=== PATIENT | female | born 1975 | race African-American/Black ===

== ENCOUNTER 2017-07-24 18:50 | Emergency (ER) | payer OTHER, SELFPAY ==
[2017-07-24 18:52] VITALS: BP 134/67; PULSE 85; RESP 16; TEMP 36.9; O2SAT 97; BMI 29.1
--- NOTE | 2017-07-24 19:58 | ED.VISSUMM ---
- ER Visit Summary Date of Service: 07/24/17 Chief Complaint: [] Fall 10 feet off ladder History of Present Illness: The patient is a 41 F [] complaining of a mechanical fall 2010 feet off a ladder onto her abdomen. She reports mild left sided abdominal discomfort. Denies nausea or vomiting. She rates the pain as 5 out of 10. She denies any hematuria. Denies chest pain or shortness of breath. Denies hitting her head or neck. She is conversational during history and physical exam. She reports the ladder slipped out from underneath her when she was on the second high step of the ladder falling directly onto concrete onto her abdomen. Physical Examination: [] Afebrile, vital signs stable. 41-year-old female no acute distress. Head is normocephalic, atraumatic. There is no midline C-spine tenderness. Cardiovascular exam is regular rate and rhythm. Lungs are clear to auscultation. Abdomen is soft with mild left lower quadrant tenderness. There is also mild left upper quadrant tenderness. There is no left CVA tenderness or right CVA tenderness. There is bruising to the right posterior aspect of the upper extremity and bruising to the right lower extremity. Test Results: [] Urinalysis: Microscopic blood. BMP normal. CT abdomen/pelvis with IV contrast: Negative. Emergency Department Course and Treatment: [] Patient had a fall from approximately 10 feet off a ladder. Initial management was obtaining a urinalysis see if there is any blood before further testing was obtained as the patient had a benign abdominal examination. As there was blood and further discomfort on serial exam I did obtain a basic metabolic panel and a CT of the abdomen/pelvis with IV contrast which revealed no significant intra-abdominal injuries. Incidental finding of breast fibroadenoma with suggestion of mammogram by radiology. This information was relayed to the patient (to obtain a mammogram). Treatment Plan: [] Follow-up with PCP. Disposition: [] Discharge, stable. Impression: [] Mechanical fall with abdominal pain This note was generated with [employer] dictation software. It may contain incorrect words, spelling, and punctuation that were not noted in review of the chart prior to signing ED Disposition - Plan for ED Patient: Chief Complaint: Fall Referrals: Care Physician,No Primary [Primary Care Provider] -
[2017-07-24 20:11] LABS: Mucous, Urine 0 SEEN /hpf (<or=2+)
[2017-07-24 20:12] LABS: Color, Urine Yellow (Yellow); Glucose, Dipstick Normal (Normal); Ketone-Dipstick Negative (Negative); Leukocyte Esterase-Dipstick Negative /ul (Negative); Nitrite-Dipstick Negative (Negative); Occult Blood-Urine 50 /ul (Negative); Protein-Dipstick Negative (Negative); Specific Gravity, Urine 1.015 (1.002-1.030); Urine Bilirubin Dipstick Negative (Negative); Urine Clarity Sl. Cloudy (Clear); Urine Urobilinogen Normal (Normal)
[2017-07-24 20:20] LABS: Squamous Epithelial Cells - UA 0-5 SEEN /hpf (5-10)
[2017-07-24 20:21] LABS: White Blood Cells 0-5 SEEN /hpf (0-5)
[2017-07-24 20:22] LABS: Bacteria 1+ /hpf (None Seen); Red Blood Cells-Urine 5-10 SEEN /hpf (0-5)
--- NOTE | 2017-07-24 21:21 | CT_ITS ---
STUDY: CT ABDOMEN AND PELVIS WITH CONTRAST REASON FOR EXAM: Female, 41 years old. Injury and pain RADIATION DOSAGE (If Supplied By Facility): CTDIvol = ( 13.75 ) mGy, DLP = ( 889.20 ) mGycm TECHNIQUE: Transaxial images were obtained from the lower chest to the upper thighs without oral contrast. 100 ml of Isovue 370 contrast was administered. Sagittal and coronal images were reconstructed. Individualized dose optimization techniques were used for this CT. COMPARISON: July 23, 2016 FINDINGS: The visualized lung bases are unremarkable. There is no pleural effusion. The heart is normal in size. There is a partially visualized 2 cm mass in the left breast. The liver is unremarkable. There is non-visualization of the gallbladder, which may be secondary to either contraction or a prior cholecystectomy. The spleen is unremarkable. The pancreas is unremarkable. The adrenal glands are unremarkable. The right kidney is unremarkable. There is no dilatation of the collecting system in the right kidney. The left kidney is unremarkable. There is no dilatation of the collecting system in the left kidney. The stomach is unremarkable. The small bowel is unremarkable. The colon is unremarkable. The appendix is visualized and appears normal. The aorta and branch vessels are unremarkable. The inferior vena cava is unremarkable. The retroperitoneum is unremarkable. There is no free fluid in the abdomen. The urinary bladder is unremarkable. There is absence of the uterus likely from prior hysterectomy. There are follicles in both ovaries. The soft tissues of the abdominal wall are unremarkable. The visualized bones are unremarkable. CT/Abdomen/Pelvis W IV Cont ONLY IMPRESSION: No acute abnormalities are seen in the abdomen or pelvis. There is no ascites. No acute abnormalities are seen in the major organs. No acute fractures are seen. Incidentally noted is an incompletely visualized mass in the left breast, possible fibroadenoma. If the patient has not had a recent mammogram, then a bilateral diagnostic mammogram and left breast ultrasound are recommended. Electronically Signed: Maranda Mott MD at 22:56 EDT Tel Direct: [phone], Service support ,
[2017-07-24 21:53] LABS: Anion Gap 6 (5-15); BUN 14 mg/dL (7-18); BUN/Creat Ratio 16.1 RATIO (10-20); Calcium,Total 8.7 mg/dL (8.5-10.1); Chloride 105 mmol/L (98-107); Creatinine, Serum 0.87 mg/dL (0.55-1.02); EST Glomerular Filtration Rate 75 mL/min (>60); Est Glom Filt Rate - Afr Amer 91 mL/min (>60); Estimated Creatinine Clearance 75.03 ml/min; Glucose 124 mg/dL (74-106); Potassium 3.3 mmol/L (3.5-5.1); Sodium Level 138 mmol/L (136-145)
[2017-07-24 22:18] VITALS: BP 120/80; PULSE 64; RESP 18; O2SAT 97
--- NOTE | 2017-07-24 23:05 | ED.DEP ---
ED Disposition - Plan for ED Patient: Disposition: Home or Assisted Living Chief Complaint: Fall Instructions: ED Mechanical Fall, Blunt Abdominal Trauma Referrals: Care Physician,No Primary [Primary Care Provider] -
[2017-07-24 23:20] VITALS: BP 117/78; PULSE 64; RESP 16; O2SAT 99
== END 2017-07-24 23:21 | disposition home or self-care (01) ==
PROVIDERS: Emergency Provider Emergency Medicine
DX: S30.1XXA Contusion of abdominal wall, initial encounter (principal); S40.021A Contusion of right upper arm, initial encounter; S80.11XA Contusion of right lower leg, initial encounter; W11.XXXA Fall on and from ladder, initial encounter; Y93.9 Activity, unspecified; Y92.9 Unspecified place or not applicable; Y99.9 Unspecified external cause status; D24.2 Benign neoplasm of left breast; Z90.710 Acquired absence of both cervix and uterus
CPT/HCPCS: 74177; 80048; 81001; 99283; Q9967; A4216

== ENCOUNTER → 2017-09-22 08:57 | Outpatient (CLI) | payer BC, SELFPAY ==
--- NOTE | 2017-09-22 08:59 | BI_ITS ---
MAMMOGRAPHY - BILATERAL DIAGNOSTIC REASON FOR EXAM: Female, 42 years old. Left breast lump. Known fibroadenoma of the left breast. PERTINENT HISTORY: Prior left excisional breast biopsy and stereotactic breast biopsy. TECHNIQUE: Digital bilateral breast maciel (3D mammographic acquisition) in the CC and MLO projections. 2-D mediolateral oblique (MLO) and craniocaudad (CC) views of both breasts were obtained. CAD: Full Field Digital Mammography with Computer Added Detection was performed. COMPARISON: Comparison is made with prior examination dated May 13, 2011. FINDINGS: Breast Composition: The breasts are heterogeneously dense, which may obscure small masses. There is a 2.4 cm x 2.5 cm well-defined nodule in the inferior retroareolar region of the left breast. This corresponds to the palpable abnormality. A tissue clip marker is seen within it. According to the patient's history, this was found to be a fibroadenoma. Surgical clips are seen in the left axillary region and are unchanged. No other significant abnormalities are identified. There has been no significant change since the prior study. BI/DIAG MAMM W/CAD, BILAT IMPRESSION: Stable bilateral diagnostic mammogram. Ultrasound of the left breast of the palpable abnormality is recommended for further evaluation. ASSESSMENT CATEGORY: BIRADS Category 0: Incomplete. Need additional imaging evaluation. A letter regarding these results will be sent to the patient by the facility within 30 days. Approximately 10% of breast cancers are not detected by mammography. A normal mammogram should not delay biopsy of a clinically suspicious abnormality. Electronically Signed: Fito Daniels MD at 10:49 EDT Tel [phone], Service support ,
--- NOTE | 2017-09-22 08:59 | US_ITS ---
STUDY: ULTRASOUND BREAST - LEFT REASON FOR EXAM: Female, 42 years old. Palpable lump left breast. Patient has a known fibroadenoma from prior biopsies. TECHNIQUE: Axial and longitudinal images of the LEFT breast were performed with a high resolution ultrasound transducer. COMPARISON: Comparison is made with prior outside mammogram dated May 13, 2011 and prior mammogram done earlier in day. FINDINGS: LEFT Breast: There is a 2.6 cm x 2.2 cm x 1.2 cm well-defined hypoechoic nodule at the 5:00 position of the breast at 2 cm from the nipple. This corresponds to the mammographic findings. A clip from prior biopsy is seen within it. US/Breast Limited Unilateral IMPRESSION: The palpable abnormality corresponds to a 2.6 on the right 2.2 cm x 1.2 cm well-defined hypoechoic nodule. A clip is seen within the from prior biopsy. This was found to be a fibroadenoma. No other abnormality is seen. ASSESSMENT CATEGORY: BIRADS Category 2: Benign. A letter regarding these results will be sent to the patient by the facility within 30 days. Electronically Signed: Fito Daniels MD at 10:47 EDT Tel [phone], Service support ,
[2019-10-04 08:30] VITALS: BMI 29.6
== END ==
PROVIDERS: Visit Provider Surgery
DX: N63.20 Unspecified lump in the left breast, unspecified quadrant (principal)
CPT/HCPCS: 76642; 77062; 77063; 77066; G0279

== ENCOUNTER → 2018-03-15 15:48 | Outpatient (CLI) | payer BC, SELFPAY ==
[2018-03-15 14:15] VITALS: BMI 29.6
--- NOTE | 2018-03-15 15:52 | RAD_ITS ---
STUDY: X-RAY - CERVICAL SPINE REASON FOR EXAM: Female, 42 years old. 4 month history of facial numbness. TECHNIQUE: 3 view(s) of the cervical spine were obtained. COMPARISON: None FINDINGS: Normal anterior atlantoaxial articulation. Normal odontoid process. There is straightening of the normal cervical lordosis. Anterior spondylosis and disc space narrowing at the C5-C6 and C6-C7 levels. Normal visualized intervertebral neuroforamina. The soft tissue structures are unremarkable. RAD/Cerv Spine 2 or 3 Views IMPRESSION: Straightening of the normal cervical lordosis. Anterior spondylosis and disc space narrowing at the C5-C6 and C6-C7 levels. Electronically Signed: Fito Daniels MD at 15:12 EST Tel [phone], Service support ,
== END ==
LOC: MTRAD 15:50
PROVIDERS: Referring Provider Nurse Practitioner Family; Visit Provider Nurse Practitioner Family
DX: R20.0 Anesthesia of skin (principal)
CPT/HCPCS: 72040

== ENCOUNTER → 2018-03-24 12:26 | Outpatient (CLI) | payer BC, SELFPAY ==
[2018-03-15 14:15] VITALS: BMI 29.6
--- NOTE | 2018-03-24 12:31 | MRI_ITS ---
STUDY: MRI CERVICAL SPINE WITHOUT CONTRAST REASON FOR EXAM: Female, 42 years old. Cervical radiculopathy, facial numbness RTgt;L bilateral arm and hand numbness x 4 mons TECHNIQUE: Standardized fat and water weighted pulse sequences were obtained in the sagittal and axial planes. COMPARISON: None FINDINGS: Normal foramen magnum and brainstem-cervical cord junction. Normal craniovertebral junction. Normal anterior atlantoaxial articulation. Normal odontoid process. Normal cervical lordosis. Normal vertebral bodies and posterior osseous elements. C2-3: Normal endplates. Normal disc height, signal and morphology. Normal central canal and intervertebral neural foramina. C3-4: Endplate spondylosis. Central and paracentral disc bulge. Degenerative changes of the bilateral facet joints and uncovertebral joints. Moderate narrowing of the central canal and the bilateral intervertebral neural foramina. C4-5: Endplate spondylosis. Central and paracentral disc bulge. Degenerative changes of the bilateral facet joints and uncovertebral joints. Moderate narrowing of the central canal and the bilateral intervertebral neural foramina. C5-6: Endplate spondylosis. Central and paracentral disc bulge. Degenerative changes of the bilateral facet joints and uncovertebral joints. Moderate narrowing of the central canal and the bilateral intervertebral neural foramina. C6-7: Endplate spondylosis. Central and paracentral disc bulge. Degenerative changes of the bilateral facet joints and uncovertebral joints. Moderate narrowing of the central canal and the bilateral intervertebral neural foramina. C7-T1: Normal endplates. Normal disc height, signal and morphology. Normal central canal and intervertebral neural foramina. Normal cervical cord. Normal visualized soft tissue structures. MRI/Spine Cervical (Routine) IMPRESSION: Multilevel degenerative changes, as described above. Electronically Signed: eRnee Enriquez MD at 18:47 EST Tel , Service support ,
--- OUTSIDE RECORDS SUMMARY | 2018-05-29 02:03 | XMS RPT_ITS ---
:1975 Author Organization OHIP Support Name Relationship Address Phone SHERICE SEYMOUR Unavailable Unavailable + [place] [address] [place] Unavailable [address] + [address] [place] [address] SHANTELL SEYMOURE Unavailable Unavailable + [place] Unavailable [address] + [address] [place] [address] Lion Sherice Unavailable [address] [facility] + [place] [address] [place] Unavailable [address] + [address] [place] [address] Lion Sherice Unavailable Unavailable + GRAVES, TINY Unavailable Unavailable + [place] Unavailable [address] + [address] [place] [address] Lion Sherice Unavailable Unavailable + GRAVES, TINY Unavailable Unavailable + [place] Unavailable [address] + [address] [place] [address] Lion Sherice Unavailable . + [place] [address] GRAVES, TINY Unavailable . + [place] [address] [place] Unavailable [address] + [address] [place] [address] Lion, Sherice Unavailable Unavailable + GRAVES, TINY Unavailable Unavailable + UL[place] Unavailable [address] + [address] [place] [address] ROBERT POND Unavailable [address] + [place] [address] [place] Unavailable [address] + [address] [place] [address] Care Team Providers Name Role Phone CANDIDA MILLER Attending Unavailable CHACHA SEYMOUR Referring Unavailable Elder, Brad METAL FABRICATOR WELDER-C Attending Unavailable Nicolas Colon Referring Unavailable Elder, Brad METAL FABRICATOR WELDER-C Attending Unavailable Elder, Brad METAL FABRICATOR WELDER-C Referring Unavailable Primay Care Physicia, No Primary Care Unavailable Elder, Brad METAL FABRICATOR WELDER-C Attending Unavailable Elder, Brad METAL FABRICATOR WELDER-C Referring Unavailable Primay Care Physicia, No Primary Care Unavailable MarcanthonyDoris Attending Unavailable Primay Care Physicia, No Referring Unavailable Primay Care Physicia, No Primary Care Unavailable Librado Varneri Attending Unavailable Abimbola, Ortiz Attending Unavailable Marcanthony, Doris Referring Unavailable Primay Care Physicia, No Primary Care Unavailable [place]plin, Ortiz Attending Unavailable Primay Care Physicia, No Primary Care Unavailable Abimbola, Ortiz Attending Unavailable Primay Care Physicia, No Referring Unavailable PROBLEMS PROBLEMS DATE TYPE CONDITION / CODE ATTENDING STATUS SOURCE 03/15/2018 Unknown R20.0 - Brad Elder Active [place] Anesthesia of METAL FABRICATOR WELDER-C [facility] skin / Hospital R20.0(ICD-10) Repository 09/22/2017 Unknown N63.20 - [place], Ortiz Active [place] Unspecified lump Community in the left Hospital breast, Repository unspecified quadrant / N63.20(ICD-10) 11/05/2017 Unknown Z04.3 - Encounter Christal Varner Active [place] for examination Community and observation Hospital following other Repository accident / Z04.3(ICD-10) PROCEDURES PROCEDURES No Procedure Records FoundRESULTS RESULTS SPINE CERVICAL Observed: 03/24/2018 Status: F Source: [place] (ROUTINE) 12:31 PM [facility] REPOSITORY [facility] Imaging Services [address] [place] [address] Spine Cervical (Routine) MR#: [id number] Acct: [id number] Name: RUTHIE CORADO Rep #: [id number] : 1975 F 42 From: Renee Enriquez MD PCP: Care Physician, No Primary Status: REG CLI Study: Spine Cervical (Routine) Date of Exam: 03/24/18 Exam# [id number] Ordering Dr: Brad Elder METAL FABRICATOR WELDER-C STUDY: MRI CERVICAL SPINE WITHOUT CONTRAST REASON FOR EXAM: Female, 42 years old. Cervical radiculopathy, facial numbness RTgt;L bilateral arm and hand numbness x 4 mons TECHNIQUE: Standardized fat and water weighted pulse sequences were obtained in the sagittal and axial planes. COMPARISON: None FINDINGS: Normal foramen magnum and brainstem-cervical cord junction. Normal craniovertebral junction. Normal anterior atlantoaxial articulation. Normal odontoid process. Normal cervical lordosis. Normal vertebral bodies and posterior osseous elements. C2-3: Normal endplates. Normal disc height, signal and morphology. Normal central canal and intervertebral neural foramina. C3-4: Endplate spondylosis. Central and paracentral disc bulge. Degenerative changes of the bilateral facet joints and uncovertebral joints. Moderate narrowing of the central canal and the bilateral intervertebral neural foramina. C4-5: Endplate spondylosis. Central and paracentral disc bulge. Degenerative changes of the bilateral facet joints and uncovertebral joints. Moderate narrowing of the central canal and the bilateral intervertebral neural foramina. C5-6: Endplate spondylosis. Central and paracentral disc bulge. Degenerative changes of the bilateral facet joints and uncovertebral joints. Moderate narrowing of the central canal and the bilateral intervertebral neural foramina. C6-7: Endplate spondylosis. Central and paracentral disc bulge. Degenerative changes of the bilateral facet joints and uncovertebral joints. Moderate narrowing of the central canal and the bilateral intervertebral neural foramina. C7-T1: Normal endplates. Normal disc height, signal and morphology. Normal central canal and intervertebral neural foramina. Normal cervical cord. Normal visualized soft tissue structures. MRI/Spine Cervical (Routine) IMPRESSION: Multilevel degenerative changes, as described above. Electronically Signed: Renee Enriquez MD at 18:47 EST Tel , Service support , CC: No Primary Care Physician; Brad Elder NP Tie Maker: Signed INTERNAL MEDICINE Observed: 03/17/2018 Status: F Source: [place] OFFICE VISIT 8:[address] 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 arrive at 1:30 for paper Chief Complaint: numbness in her face Is patient in pain?: No Allergies Penicillins [PCN] Allergy (Verified 07/24/17 18:51) Hives Medications NK 09/15/17 [History Confirmed 09/15/17] Is last menstrual period known: Yes PFSH Medical History History of anemia (Acute) No significant medical problems (Acute) Surgical History S/P bunionectomy (Acute) S/P cholecystectomy (Acute) S/P hysterectomy (Acute 2017) S/P lumpectomy of breast (Acute) S/P tonsillectomy (Acute) Family History Sister CVA (cerebral vascular accident) Thyroid disorder Depression Mother Thyroid disorder Social History Smoking Status: Never smoker alcohol intake: current alcohol intake frequency: holidays/special occasions only substance use type: does not use what type of physical activity do you participate in: none HPI HPI Chief Complaint: numbness in her face Details: RUTHIE CORADO, is a 42 F who presents to the office today for an acute visit of numbness and tingling in her face times 3 months. She denies any significant past medical history. The patient states that she has had numbness on and off to both the right and left side of her face for the past 3 months which occurs daily and that she has occasional numbness and tingling to her bilateral upper extremities that starts at the elbow and goes to the fingertips that occurs once or twice per week. She denies any pain with this numbness. She currently is having a numbness on the right side of her face. She denies any obvious injury or prior history of injury to the area. The only thing she can think of is that approximately 1 year ago she fell off a ladder, however did not injure that area at the time. She denies any other acute concerns at this time. She denies any other aggravating or alleviating factors. The patient otherwise denies any fever, chills, nausea, vomiting, shortness of breath, chest pain or pressure, palpitations, orthopnea, lower extremity edema, syncope or presyncopal episodes. ROS Const Constitutional: Positive for fatigue; no weight change, body ache, chills, sleep problems, fever(s), change in appetite, snoring, weakness, frequent falls, headache(s) or excessive sweating Eyes Eyes: Positive for dry eyes (right eye gets blood shot sometimes and itches); no change in vision, eye pain, light sensitivity or blurry vision ENT ENT: No headache(s), abnormal hearing, ear pain, tinnitus, nasal congestion, sore throat or neck pain Resp Respiratory: No snoring, cough, shortness of breath or wheezing Cardio Cardiology: Positive for palpitations (not new all previous test were negative); no excessive sweating, chest pain at rest, chest pain with exertion, shortness of breath, dyspnea on exertion, orthopnea or lightheadedness Gastro GI: No abdominal pain, change in bowel habits, constipation, diarrhea, vomiting, nausea/dyspepsia or cramping Genitourinary-Female: No burning urination, painful urination, urinary incontinence, urinary frequency, abnormal vaginal bleeding, pelvic pain or other Musc Musculoskeletal: Positive for numbness and tingling (costant in face, sometimes in hands); no neck pain, abnormal walking, joint pain, back pain, limited range of motion or muscle weakness Skin Skin: No redness, dry skin, itching, lesions, wounds or rash Neuro Neurology: Positive for numbness and tingling (costant in face, sometimes in hands); no weakness, frequent falls, headache(s), abnormal hearing, abnormal walking, abnormal speech, dizziness or memory loss Psych Psychiatric: No change in appetite, No memory loss, No anxiety, No depression, No Thoughts of harming yourself/Others Endo Endocrine: Positive for fatigue; no excessive sweating, cold intolerance, increased thirst/drinking, heat intolerance, flushing or increased hunger Aller/Imm Allergy/Immunologic: No wheezing, itchy eyes, hives or seasonal allergy symptoms [place]/Lymp Hematologic/Lymphatic: No easy bleeding, easy bruising or enlarged lymph nodes Exam Const General: cooperative, comfortable, no acute distress Nutritional Appearance: average body habitus, well nourished Orientation: alert, oriented x3 Limitations: mental status not altered Resp Effort AND Inspection: normal respiratory effort, able to speak in complete sentences, normal respiratory pattern, symmetric chest movement, no audible wheezes, no cough Auscultation: Bilateral: Clear to Auscultation Cardio Palpation: normal PMI Rate: regular rate Heart Sounds: S1 normal, S2 normal, normal S1 and S2, no click, no gallops, no murmurs, no rubs Musc Musculoskeletal: No joint tenderness, decreased ROM or muscle weakness Cervical Spine: cervical ROM normal; no Spurling sign Skin General: no rashes or lesions noted, elasticity normal, turgor normal Lesions: no lesions Rashes: no rashes Neuro General: alert, awake, oriented x3, CN's II-XI intact bilaterally Speech: speech normal Gait: normal gait Motor: muscle tone normal throughout, strength 5/5 throughout Other: decreased sensation to right side of the face, starts at forehead and ends at jawline, no facial droop or pain, PERRLA b/l Extrem General: normal to inspection, normal gait, no edema, no pedal edema Psych Appearance: grossly normal Mental Status: mental status grossly normal Affect: normal affect Attitude: cooperative Thought Process: normal Assessment AND Plan Problems 1. Facial numbness R20.0 2. Cervical radiculopathy M54.12 Plan Patient does have complaints of facial numbness with probable cervical radiculopathy. Will start with x-rays of the cervical spine. Discussed red flag symptoms requiring urgent medical attention. Patient to follow-up in 4-6 weeks for establishment visit or sooner if needed. Lalo disclaimer Orders Orders: Coding Level of Care Code Off vis,new,level 3 Diagnoses Facial numbness R20.0 Cervical radiculopathy M54.12 03/17/18 0820 <Electronically signed by Brad MELO> Date Brad MELO Cosigner Signature: Date (if applicable) CC: CERV SPINE 2 OR 3 Observed: 03/15/2018 Status: F Source: [place] VIEWS 3:52 PM [facility] REPOSITORY [facility] Imaging Services [address] [place] [address] Cerv Spine 2 or 3 Views MR#: [id number] Acct: [id number] Name: RUTHIE CORADO Rep #: [id number] : 1975 F 42 From: Fito Daniels MD PCP: Care Physician, No Primary Status: REG CLI Study: Cerv Spine 2 or 3 Views Date of Exam: 03/15/18 Exam# [id number] Ordering Dr: Brad Elder METAL FABRICATOR WELDER-C STUDY: X-RAY - CERVICAL SPINE REASON FOR EXAM: Female, 42 years old. 4 month history of facial numbness. TECHNIQUE: 3 view(s) of the cervical spine were obtained. COMPARISON: None FINDINGS: Normal anterior atlantoaxial articulation. Normal odontoid process. There is straightening of the normal cervical lordosis. Anterior spondylosis and disc space narrowing at the C5-C6 and C6-C7 levels. Normal visualized intervertebral neuroforamina. The soft tissue structures are unremarkable. RAD/Cerv Spine 2 or 3 Views IMPRESSION: Straightening of the normal cervical lordosis. Anterior spondylosis and disc space narrowing at the C5-C6 and C6-C7 levels. Electronically Signed: Fito Daniels MD at 15:12 EST Tel [phone], Service support , CC: No Primary Care Physician; Brad Elder NP Tie Maker: Signed BREAST LIMITED Observed: 09/22/2017 Status: F Source: [place] UNILATERAL 8:59 AM [facility] REPOSITORY [facility] Imaging Services [address] [place] [address] Breast Limited Unilateral MR#: [id number] Acct: [id number] Name: RUTHIE CORADO Rep #: [id number] : 1975 F 42 From: Fito Daniels MD PCP: Care Physician, No Primary Status: REG CLI Study: Breast Limited Unilateral Date of Exam: 09/22/17 Exam# [id number] Ordering Dr: Ortiz Daily MD STUDY: ULTRASOUND BREAST - LEFT REASON FOR EXAM: Female, 42 years old. Palpable lump left breast. Patient has a known fibroadenoma from prior biopsies. TECHNIQUE: Axial and longitudinal images of the LEFT breast were performed with a high resolution ultrasound transducer. COMPARISON: Comparison is made with prior outside mammogram dated May 13, 2011 and prior mammogram done earlier in . FINDINGS: LEFT Breast: There is a 2.6 cm x 2.2 cm x 1.2 cm well-defined hypoechoic nodule at the 5:00 position of the breast at 2 cm from the nipple. This corresponds to the mammographic findings. A clip from prior biopsy is seen within it. US/Breast Limited Unilateral IMPRESSION: The palpable abnormality corresponds to a 2.6 on the right 2.2 cm x 1.2 cm well-defined hypoechoic nodule. A clip is seen within the from prior biopsy. This was found to be a fibroadenoma. No other abnormality is seen. ASSESSMENT CATEGORY: BIRADS Category 2: Benign. A letter regarding these results will be sent to the patient by the facility within 30 days. Electronically Signed: Fito Daniels MD at 10:47 EDT Tel [phone], Service support , CC: No Primary Care Physician; Ortiz Daily MD Tie Maker: Signed DIAG MAMM W/CAD, Observed: 09/22/2017 Status: F Source: [place] BILAT 8:59 AM [facility] REPOSITORY [facility] Imaging Services [address] [place] [address] DIAG MAMM W/CAD, BILAT MR#: [id number] Acct: [id number] Name: RUTHIE CORADO Rep #: [id number] : 1975 F 42 From: Fito Daniels MD PCP: Care Physician, No Primary Status: REG CLI Study: DIAG MAMM W/CAD, BILAT Date of Exam: 09/22/17 Exam# [id number] Ordering Dr: Ortiz Daily MD MAMMOGRAPHY - BILATERAL DIAGNOSTIC REASON FOR EXAM: Female, 42 years old. Left breast lump. Known fibroadenoma of the left breast. PERTINENT HISTORY: Prior left excisional breast biopsy and stereotactic breast biopsy. TECHNIQUE: Digital bilateral breast maciel (3D mammographic acquisition) in the CC and MLO projections. 2-D mediolateral oblique (MLO) and craniocaudad (CC) views of both breasts were obtained. CAD: Full Field Digital Mammography with Computer Added Detection was performed. COMPARISON: Comparison is made with prior examination dated May 13, 2011. FINDINGS: Breast Composition: The breasts are heterogeneously dense, which may obscure small masses. There is a 2.4 cm x 2.5 cm well-defined nodule in the inferior retroareolar region of the left breast. This corresponds to the palpable abnormality. A tissue clip marker is seen within it. According to the patient's history, this was found to be a fibroadenoma. Surgical clips are seen in the left axillary region and are unchanged. No other significant abnormalities are identified. There has been no significant change since the prior study. BI/DIAG MAMM W/CAD, BILAT IMPRESSION: Stable bilateral diagnostic mammogram. Ultrasound of the left breast of the palpable abnormality is recommended for further evaluation. ASSESSMENT CATEGORY: BIRADS Category 0: Incomplete. Need additional imaging evaluation. A letter regarding these results will be sent to the patient by the facility within 30 days. Approximately 10% of breast cancers are not detected by mammography. A normal mammogram should not delay biopsy of a clinically suspicious abnormality. Electronically Signed: Fito Daniels MD at 10:49 EDT Tel [phone], Service support , CC: No Primary Care Physician; Ortiz Daily MD Tie Maker: Signed SURGERY VISIT REPORT Observed: 09/17/2017 Status: F Source: [place] 9:[address] [facility] [address] [place] [address] [address] [place] [address] OFFICE VISIT Date of Service: 09/15/17 MR#: [id number] Acct: [id number] Name: RUTHIE CORADO Rep #: [id number] : 1975 Provider: Ortiz Daily MD Age/Sex: 42/F Location: [facility] Status: Signed Intake Vital Signs09/15/17 Height 5 ft 5 in 09/15/17 Weight: 170 lb 5 oz 09/15/17 Body Mass Index (BMI) 28.3 09/15/17 Blood Pressure 114/63 Intake Visit Reasons: L Breast Lump Chief Complaint: left breast lump, hx biopsy Information And Referral Director Required: No Is patient in pain?: No Allergies Penicillins [PCN] Allergy (Verified 07/24/17 18:51) Hives Medications NK [NK] 09/15/17 [History Confirmed 09/15/17] Is last menstrual period known: No Post menopausal: Yes Patient : No PFSH Medical History No significant medical problems (Acute) Surgical History S/P bunionectomy (Acute) S/P cholecystectomy (Acute) S/P hysterectomy (Acute 2017) S/P lumpectomy of breast (Acute) S/P tonsillectomy (Acute) Family History Sister CVA (cerebral vascular accident) Social History Smoking Status: Former smoker HPI HPI HPI: RUTHIE CORADO, is a 42 F who presents to the office today for evaluation of the left breast mass. Patient was seen and was [facility]'s emergency department on 07/24/2017. At that time she had fallen approximately 10 feet off of a ladder. A CAT scan of her abdomen and pelvis were obtained which showed incidental findings of a left breast mass. It was a incomplete evaluation since they did not see the clip that was in this left breast mass but I believe that it is the same mass that I biopsied in the past and have confirmed a fibroadenoma. No other imaging has been obtained as of yet. She is not complaining of any breast pain. No nipple discharge. ROS General General: No weight change, appetite, fatigue, colon cancer, breast cancer or weakness HEENT HEENT: No difficulty swallowing, eye injury, eye surgery, swollen glands or hoarseness Endo Endocrine: No thyroid disease, diabetes mellitus, thyroid cancer, Hair loss, heat intolerance or cold intolerance Breast Breast: Yes left breast lump; no right breast lump, nipple discharge, breast pain, abnormal mammogram, abnormal US or breast enlargement Musc Musculoskeletal: No back problems, arthritis, rheumatoid arthritis, gout or joint pain Cardio Cardiovascular: No murmur, pacemaker, heart disease, atrial fibrillation, high blood pressure, heart attack, heart stent, palpitations, shortness of breat with exertion or chest pain Resp Respiratory: No shortness of breath, No sleep apnea, No cough, No COPD, No asthma, No emphysema, No wheezing [place] Hematologic: No blood thinners, No blood disorders, No bleeding, No anemia, No blood clots Neuro Neurologic: No weakness Exam [facility] Head: normal to inspection, normocephalic, atraumatic Mouth: moist mucous membranes, oropharynx normal Eyes General: appearance normal, both eyes and all related structures Sclera: sclerae normal Neck Neck: no lymphadenopathy noted, trachea midline Neck mass: No Thyroid: thyroid normal Lymphatic: no lymphadenopathy noted Chest Breast inspection: normal inspection of the breasts Breast Palpation: No nipple discharge Other: Palpation of the left breast reveals the fibroadenoma at the 5 o'clock position approximately a centimeter to 2 cm away from the nipple areolar complex. I can see my previous incision from where I biopsied this. There is no signs of any trauma. Resp Other: Respiratory Exam: Deferred Cardio Heart Sounds: no murmurs Other: Cardiac Exam: Deferred GI Other: GI Exam: Deferred Other: Rectal Exam: Deferred Extrem Other: Extremity Exam: Deferred Assessment AND Plan Problems 1. Breast lump N63.0 Plan I believe all we need to clear this up is to obtain a mammogram and ultrasound on the left breast. She is overdue to have bilateral mammograms performed as well. And I am going to order these as well. If the mammogram shows the clip to be in good placement I do not think we need to investigate this any further. If the mammograms however do show any new lesions then we will act accordingly. Orders Orders: Coding Level of Care Code Off vis,est,level 3 Diagnoses Breast lump N63.0 09/17/17 0940 <Electronically signed by Ortiz Daily MD> Date Ortiz Daily MD Cosign Signature: Date (if applicable) CC: Doris Agustin MD EMERGENCY DEPARTMENT Observed: 07/24/2017 Status: F Source: [place] SUMMARY 11:36 PM [facility] REPOSITORY [facility] Medical Records Department [address] [place] [address] Emergency Department Summary 07/24/171957 MR#: [id number] Acct: [id number] Name: RUTHIE CORADO Jose Rep #: [id number] : 1975 41 From: Christal Varner DO PCP: Care Physician, No Primary Status: DEP ER - ER Visit Summary Date of Service: 07/24/17 Chief Complaint: [] Fall 10 feet off ladder History of Present Illness: The patient is a 41 F [] complaining of a mechanical fall 2010 feet off a ladder onto her abdomen. She reports mild left sided abdominal discomfort. Denies nausea or vomiting. She rates the pain as 5 out of 10. She denies any hematuria. Denies chest pain or shortness of breath. Denies hitting her head or neck. She is conversational during history and physical exam. She reports the ladder slipped out from underneath her when she was on the second high step of the ladder falling directly onto concrete onto her abdomen. Physical Examination: [] Afebrile, vital signs stable. 41-year-old female no acute distress. Head is normocephalic, atraumatic. There is no midline C-spine tenderness. Cardiovascular exam is regular rate and rhythm. Lungs are clear to auscultation. Abdomen is soft with mild left lower quadrant tenderness. There is also mild left upper quadrant tenderness. There is no left CVA tenderness or right CVA tenderness. There is bruising to the right posterior aspect of the upper extremity and bruising to the right lower extremity. Test Results: [] Urinalysis: Microscopic blood. BMP normal. CT abdomen/pelvis with IV contrast: Negative. Emergency Department Course and Treatment: [] Patient had a fall from approximately 10 feet off a ladder. Initial management was obtaining a urinalysis see if there is any blood before further testing was obtained as the patient had a benign abdominal examination. As there was blood and further discomfort on serial exam I did obtain a basic metabolic panel and a CT of the abdomen/pelvis with IV contrast which revealed no significant intra-abdominal injuries. Incidental finding of breast fibroadenoma with suggestion of mammogram by radiology. This information was relayed to the patient (to obtain a mammogram). Treatment Plan: [] Follow-up with PCP. Disposition: [] Discharge, stable. Impression: [] Mechanical fall with abdominal pain This note was generated with 3CLog[employer] dictation software. It may contain incorrect words, spelling, and punctuation that were not noted in review of the chart prior to signing ED Disposition - Plan for ED Patient: Chief Complaint: Fall Referrals: Care Physician,No Primary [Primary Care Provider] - What to do if you have Problems For any increased pain, shortness of breath, bleeding, nausea or vomiting, chest pain, or any unexpected problems, contact your Primary Care Provider. Call [facility] ([phone]) or report to the closest Emergency Room. Call 911 if necessary. 07/24/172335 <Electronically signed by Christal Varner DO> Date Christal Varner DO Cosigner Signature (If Indicated): Date CC: No Primary Care Physician DISCHARGE INSTRUCTION Observed: 07/24/2017 Status: F Source: [place] 11:06 PM [facility] REPOSITORY [facility] Medical Records Department [address] [place] [address] Discharge Instruction 07/24/172304 MR#: [id number] Acct: [id number] Name: RUTHIE CORADO Rep #: [id number] : 1975 41 From: Christal Varner DO PCP: Care Physician, No Primary Status: REG ER ED Disposition - Plan for ED Patient: Disposition: Home or Assisted Living Chief Complaint: Fall Instructions: ED Mechanical Fall, Blunt Abdominal Trauma Referrals: Care Physician,No Primary [Primary Care Provider] - What to do if you have Problems For any increased pain, shortness of breath, bleeding, nausea or vomiting, chest pain, or any unexpected problems, contact your Primary Care Provider. Call [facility] ([phone]) or report to the closest Emergency Room. Call 911 if necessary. 07/24/172305 <Electronically signed by Christal Varner DO> Date Christal Varner DO Cosigner Signature (If Indicated): Date CC: No Primary Care Physician BASIC METABOLIC Collected: 07/24/2017 Status: F Source: [place] PROFILE (BMP) 9:30 PM [facility] REPOSITORY TYPE CODE TESTS RESULT OUT OF RANGE REFERENCE UNITS LAB L501.0100 74-106 mg/dL High GLU 124 Result Comment: Fasting Glucose result from 100 to 125 mg/dL suggests IMPAIRED HOMEOSTASIS per A.D.A. criteria. Please note revised GLUCOSE reference range effective 2017. LAB L501.1000 7-18 mg/dL Normal BUN 14 LAB L501.1100 0.55-1.02 mg/dL Normal CREAT,SERUM 0.87 Result Comment: The validity of the calculated GFR AND GFRAA in patients over 70 years has not been determined. Clinical correlation is essential. LAB L501.1110 >60 mL/min Normal EST GFR 75 Result Comment: Non- GFR Calc LAB L501.1115 >60 mL/min Normal EST GFR - AA 91 Result Comment: GFR Calc LAB L501.1255 ml/min Normal Estimated CRCL 75.03 LAB L501.1300 10-20 RATIO Normal BUN/CRE 16.1 LAB L501.2200 8.5-10 mg/dL Normal .1 CA 8.7 LAB L501.5300 136-14 mmol/L Normal 5 NA 138 LAB L501.5600 3.5-5. mmol/L Low 1 K 3.3 LAB L501.5900 98-107 mmol/L Normal CL 105 LAB L501.6100 21.0-3 mmol/L Normal 2.0 CO2 27.0 LAB L501.6200 5-15 Normal GAP 6 Performed By: #### L500.2500 #### [facility] [address] [place], [address] ABDOMEN/PELVIS W IV CONT Observed: 07/24/2017 Status: F Source: [place] ONLY 9:22 PM [facility] REPOSITORY [facility] Imaging Services [address] [place] [address] Abdomen/Pelvis W IV Cont ONLY MR#: [id number] Acct: [id number] Name: MARYBRIANARTUHIE Rep #: [id number] : 1975 F 41 From: Maranda Mott MD PCP: Care Physician, No Primary Status: REG ER Study: Abdomen/Pelvis W IV Cont ONLY Date of Exam: 07/24/17 Exam# [id number] Ordering Dr: Christal Varner DO STUDY: CT ABDOMEN AND PELVIS WITH CONTRAST REASON FOR EXAM: Female, 41 years old. Injury and pain RADIATION DOSAGE (If Supplied By Facility): CTDIvol = ( 13.75 ) mGy, DLP = ( 889.20 ) mGycm TECHNIQUE: Transaxial images were obtained from the lower chest to the upper thighs without oral contrast. 100 ml of Isovue 370 contrast was administered. Sagittal and coronal images were reconstructed. Individualized dose optimization techniques were used for this CT. COMPARISON: July 23, 2016 FINDINGS: The visualized lung bases are unremarkable. There is no pleural effusion. The heart is normal in size. There is a partially visualized 2 cm mass in the left breast. The liver is unremarkable. There is non-visualization of the gallbladder, which may be secondary to either contraction or a prior cholecystectomy. The spleen is unremarkable. The pancreas is unremarkable. The adrenal glands are unremarkable. The right kidney is unremarkable. There is no dilatation of the collecting system in the right kidney. The left kidney is unremarkable. There is no dilatation of the collecting system in the left kidney. The stomach is unremarkable. The small bowel is unremarkable. The colon is unremarkable. The appendix is visualized and appears normal. The aorta and branch vessels are unremarkable. The inferior vena cava is unremarkable. The retroperitoneum is unremarkable. There is no free fluid in the abdomen. The urinary bladder is unremarkable. There is absence of the uterus likely from prior hysterectomy. There are follicles in both ovaries. The soft tissues of the abdominal wall are unremarkable. The visualized bones are unremarkable. CT/Abdomen/Pelvis W IV Cont ONLY IMPRESSION: No acute abnormalities are seen in the abdomen or pelvis. There is no ascites. No acute abnormalities are seen in the major organs. No acute fractures are seen. Incidentally noted is an incompletely visualized mass in the left breast, possible fibroadenoma. If the patient has not had a recent mammogram, then a bilateral diagnostic mammogram and left breast ultrasound are recommended. Electronically Signed: Maranda Mott MD at 22:56 EDT Tel Direct: [phone], Service support , CC: No Primary Care Physician; Christal Varner DO Tie Maker: Signed URINALYSIS, COMPLETE Collected: 07/24/2017 Status: F Source: [place] 8:02 PM [facility] REPOSITORY Order Comment: How was Urine Obtained? CLEAN CATCH TYPE CODE TESTS RESULT OUT OF RANGE REFERENCE UNITS LAB L400.3000 Yellow COLOR Normal Yellow LAB L400.3050 Clear Normal CLARITY Sl. Cloudy LAB L400.3200 Normal mg/dl Normal GLUCOSE, UR Normal LAB L400.3300 Negative mg/dL Normal BILIRUBIN URINE Negative LAB L400.3400 Negative mg/dl Normal KETONE UR Negative LAB L400.3465 1.002-1.030 Normal SP.GR. DIPSTX 1.015 LAB L400.3550 5.0 - 8.0 pH UR Normal 6.0 LAB L400.3600 Negative mg/dl PROT Normal DIPSTX Negative LAB L400.3700 Normal mg/dl Normal UROBILI Normal LAB L400.3750 Negative Normal NITRITE UR Negative LAB L400.3780 Negative /ul High 50 OCCULT BLOOD-UR LAB L400.3800 Negative /ul LEUK Normal ESTERASE Negative LAB L400.4050 0-5 /hpf WBC Normal 0-5 SEEN LAB L400.4100 0-5 /hpf Normal RBC-UA 5-10 SEEN LAB L400.4150 5-10 /hpf SQUAM Normal EPI 0-5 SEEN LAB L400.4300 None Seen /hpf 1+ Normal BACTERIA LAB L400.4350 <or=2+ /hpf 0 Normal MUCUS, URINE SEEN Performed By: #### L400.0001 #### [facility] [address] [place], [address] PROGRESS Observed: 06/21/2017 Status: COMPLETED Source: [place] 2:10 PM [facility] RE[facility]IT[facility] HNO ID: [id number] Author: Vale Quinteros Service: (none) Author Type: Nurse Practitioner Type: Progress Notes Filed: 06/21/2017 2:58 PM Note Text: Subjective Patient is a 41 year old female presenting with sinus complaint. The history is provided by the patient. No paraprofessional interpreter was used. Sinus Problem Associated symptoms include congestion, coughing, headaches (sinus) and a sore throat. Pertinent negatives include no chest pain, chills, fever, myalgias or rash. HPI Ruthie Corado is a 41 year old female who presents today for CC of sinus congestion and pressure This started 2 weeks ago, and wont go away. She is also having post nasal drainage, sore throat, ear pressure. Symptoms are worsened by leaning forward. She has tried sudafed, allergy pills. Risk factors co workers ill. 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 Negative for chills, fever and malaise/fatigue. HENT: Positive for congestion, ear pain (pressure), sinus pain and sore throat. Post nasal drainage Respiratory: Positive for cough. Negative for sputum production, shortness of breath and wheezing. Cardiovascular: Negative for chest pain. Musculoskeletal: Negative for myalgias. Skin: Negative for rash. Neurological: Positive for headaches (sinus). Objective Physical Exam Constitutional: She is well-developed, well-nourished, and in no distress. HENT: Head: Normocephalic and atraumatic. Right Ear: External ear and ear canal normal. Tympanic membrane is bulging. Tympanic membrane is not injected, not erythematous and not retracted. A middle ear effusion (serous) is present. Left Ear: External ear and ear canal normal. Tympanic membrane is bulging. Tympanic membrane is not injected, not erythematous and not retracted. A middle ear effusion (serous) is present. Nose: Mucosal edema and rhinorrhea present. Right sinus exhibits frontal sinus tenderness. Left sinus exhibits frontal sinus tenderness. Mouth/Throat: Uvula is midline and mucous membranes are normal. Posterior oropharyngeal erythema present. No oropharyngeal exudate, posterior oropharyngeal edema or tonsillar abscesses. Clear thick post nasal drainage Eyes: Conjunctivae and EOM are normal. Pupils are equal, round, and reactive to light. Neck: Normal range of motion. Cardiovascular: Normal rate, regular rhythm and normal heart sounds. Pulmonary/Chest: Effort normal and breath sounds normal. No respiratory distress. She has no decreased breath sounds. She has no wheezes. She has no rhonchi. She has no rales. Lymphadenopathy: Head (right side): No submental, no submandibular, no tonsillar, no preauricular and no posterior auricular adenopathy present. Head (left side): No submental, no submandibular, no tonsillar, no preauricular and no posterior auricular adenopathy present. She has cervical adenopathy. Right cervical: Superficial cervical adenopathy present. No posterior cervical adenopathy present. Left cervical: Superficial cervical adenopathy present. No posterior cervical adenopathy present. Right: No supraclavicular adenopathy present. Left: No supraclavicular adenopathy present. Skin: Skin is warm and dry. Psychiatric: Affect normal. Nursing note and vitals reviewed. ASSESSMENT/PLAN: 1. Acute non-recurrent pansinusitis - ICD9: 461.8, ICD10: J01.40 - Will begin treatment with Doxycline - The patient should also be given warm salt water gargles, throat lozenges and/or OTC throat spray as needed for the first 5- 7 days of treatment. - Supportive care with plenty of fluids, rest, and analgesia prn. - Follow up in one week if symptoms persist or worsen. - -Increase fluid intake. Try to drink at least 8 glasses of non caffeinated fluids daily. --Rest as much as possible. -Do the nasal saline irrigation at least 2 x day to relieve nasal mucous and congestion: brands include Heber Med, Simply saline, Whitman nasal spray, or even the generic store brand one is ok. Take the entire course of antibiotics as prescribed. DO NOT stop taking it early, even if you are feeling better. -Practice good hygiene, wash hands frequently. -Monitor for signs of worsening infection: increased temperature, pain in face, ear pain or headaches or increase in nasal congestion/mucous that is not improving. -Educated patient on side effects of medication. * Seek medical care immediately, call 911, go to ER if you have chest pain, difficulty breathing, shortness of breath, inability to swallow. You can take an OTC probiotic such as Culturelle or Align to help with stomach upset/loose stool that you may get as a side effect of the antibiotic. - DOXYCYCLINE MONOHYDRATE 100 MG CAPSULE Diagnosis and treatment plan were discussed and questions were answered to the patient's satisfaction. Pt acknowledged understanding of concepts and follow up plan. Specific signs and symptoms that would indicate the need for higher level of care were discussed in detail warranting prompt ER evaluation. Vale Quinteros APRN.CNP CNOV Observed: 06/21/2017 Status: COMPLETED Source: [place] 2:00 PM [facility] REPOSITORY Office Visit (WSTR) RUTHIE CORADO ([id number]) 1975 F Date Time Provider Department 06/21/17 2:00 PM VALE QUINTEROS (SHERRY) WSTR During your visit today, we recorded the following information about you: Temperature Pulse Respiration Blood pressure 97.6 degrees 78/minute 16/minute 100/62 Weight 82.6 kg Vale Quinteros APRN.CNP 06/21/2017 2:58 PM Signed Subjective Patient is a 41 year old female presenting with sinus complaint. The history is provided by the patient. No paraprofessional interpreter was used. Sinus Problem Associated symptoms include congestion, coughing, headaches (sinus) and a sore throat. Pertinent negatives include no chest pain, chills, fever, myalgias or rash. PARISH Garcia Mickie is a 41 year old female who presents today for CC of sinus congestion and pressure This started 2 weeks ago, and wont go away. She is also having post nasal drainage, sore throat, ear pressure. Symptoms are worsened by leaning forward. She has tried sudafed, allergy pills. Risk factors co workers ill. 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 Negative for chills, fever and malaise/fatigue. HENT: Positive for congestion, ear pain (pressure), sinus pain and sore throat. Post nasal drainage Respiratory: Positive for cough. Negative for sputum production, shortness of breath and wheezing. Cardiovascular: Negative for chest pain. Musculoskeletal: Negative for myalgias. Skin: Negative for rash. Neurological: Positive for headaches (sinus). Objective Physical Exam Constitutional: She is well-developed, well-nourished, and in no distress. HENT: Head: Normocephalic and atraumatic. Right Ear: External ear and ear canal normal. Tympanic membrane is bulging. Tympanic membrane is not injected, not erythematous and not retracted. A middle ear effusion (serous) is present. Left Ear: External ear and ear canal normal. Tympanic membrane is bulging. Tympanic membrane is not injected, not erythematous and not retracted. A middle ear effusion (serous) is present. Nose: Mucosal edema and rhinorrhea present. Right sinus exhibits frontal sinus tenderness. Left sinus exhibits frontal sinus tenderness. Mouth/Throat: Uvula is midline and mucous membranes are normal. Posterior oropharyngeal erythema present. No oropharyngeal exudate, posterior oropharyngeal edema or tonsillar abscesses. Clear thick post nasal drainage Eyes: Conjunctivae and EOM are normal. Pupils are equal, round, and reactive to light. Neck: Normal range of motion. Cardiovascular: Normal rate, regular rhythm and normal heart sounds. Pulmonary/Chest: Effort normal and breath sounds normal. No respiratory distress. She has no decreased breath sounds. She has no wheezes. She has no rhonchi. She has no rales. Lymphadenopathy: Head (right side): No submental, no submandibular, no tonsillar, no preauricular and no posterior auricular adenopathy present. Head (left side): No submental, no submandibular, no tonsillar, no preauricular and no posterior auricular adenopathy present. She has cervical adenopathy. Right cervical: Superficial cervical adenopathy present. No posterior cervical adenopathy present. Left cervical: Superficial cervical adenopathy present. No posterior cervical adenopathy present. Right: No supraclavicular adenopathy present. Left: No supraclavicular adenopathy present. Skin: Skin is warm and dry. Psychiatric: Affect normal. Nursing note and vitals reviewed. ASSESSMENT/PLAN: 1. Acute non-recurrent pansinusitis - ICD9: 461.8, ICD10: J01.40 - Will begin treatment with Doxycline - The patient should also be given warm salt water gargles, throat lozenges and/or OTC throat spray as needed for the first 5-7 days of treatment. - Supportive care with plenty of fluids, rest, and analgesia prn. - Follow up in one week if symptoms persist or worsen. - -Increase fluid intake. Try to drink at least 8 glasses of non caffeinated fluids daily. --Rest as much as possible. -Do the nasal saline irrigation at least 2 x day to relieve nasal mucous and congestion: brands include Heber Med, Simply saline, Whitman nasal spray, or even the generic store brand one is ok. Take the entire course of antibiotics as prescribed. DO NOT stop taking it early, even if you are feeling better. -Practice good hygiene, wash hands frequently. -Monitor for signs of worsening infection: increased temperature, pain in face, ear pain or headaches or increase in nasal congestion/mucous that is not improving. -Educated patient on side effects of medication. * Seek medical care immediately, call 911, go to ER if you have chest pain, difficulty breathing, shortness of breath, inability to swallow. You can take an OTC probiotic such as Culturelle or Align to help with stomach upset/loose stool that you may get as a side effect of the antibiotic. - DOXYCYCLINE MONOHYDRATE 100 MG CAPSULE Diagnosis and treatment plan were discussed and questions were answered to the patient's satisfaction. Pt acknowledged understanding of concepts and follow up plan. Specific signs and symptoms that would indicate the need for higher level of care were discussed in detail warranting prompt ER evaluation. INEZ Nicholas APRN.CNP 06/21/2017 2:15 PM Signed ASSESSMENT/PLAN: 1. Acute non-recurrent pansinusitis - ICD9: 461.8, ICD10: J01.40 - Will begin treatment with Doxycline - The patient should also be given warm salt water gargles, throat lozenges and/or OTC throat spray as needed for the first 5-7 days of treatment. - Supportive care with plenty of fluids, rest, and analgesia prn. - Follow up in one week if symptoms persist or worsen. - -Increase fluid intake. Try to drink at least 8 glasses of non caffeinated fluids daily. --Rest as much as possible. -Do the nasal saline irrigation at least 2 x day to relieve nasal mucous and congestion: brands include Heber Med, Simply saline, Whitman nasal spray, or even the generic store brand one is ok. Take the entire course of antibiotics as prescribed. DO NOT stop taking it early, even if you are feeling better. -Practice good hygiene, wash hands frequently. -Monitor for signs of worsening infection: increased temperature, pain in face, ear pain or headaches or increase in nasal congestion/mucous that is not improving. -Educated patient on side effects of medication. * Seek medical care immediately, call 911, go to ER if you have chest pain, difficulty breathing, shortness of breath, inability to swallow. You can take an OTC probiotic such as Culturelle or Align to help with stomach upset/loose stool that you may get as a side effect of the antibiotic. - DOXYCYCLINE MONOHYDRATE 100 MG CAPSULE Referring Provider: SELF [200] Allergies As of Date: 06/21/2017 Noted Allergy Reaction PENICILLINS 01/27/2005 4 - Hives Date Reviewed: 06/21/2017 Reviewed by: Tanesha Banda Ma - Fully Assessed Reason for Visit: Sinus Problem [99] Cmt: sinus pressure and drainage, cough, swollen glands, ear pressure x 2 weeks Primary Visit Diagnosis:Acute non-recurrent pansinusitis [J01.40] Order(s):doxycycline monohydrate (MONODOX) 100 mg capsuleTake 1 capsule by mouth twice daily for 10 days.Disp: 20 capsuleRfl: 0 Prescriptions as of 06/21/2017 Sig: DOXYCYCLINE MONOHYDRATE 100 M* Take 1 capsule by mouth twice* METHYLPREDNISOLONE 4 MG TABLE* Take as directed Medication notes this encounter METHYLPREDNISOLONE 4 MG TABLETS IN A DOSE PACK >> Tanesha Banda Ma 06/21/2017 2:01 PM >> TANESHA BANDA MA Jun 21, 2017 2:01 PM done Problem List As Of Date 06/21/2017 Noted Resolved Routine General Medical Examination at a [facility]*INVALID FOR*02/02/2012 More... HYPERLIPIDEMIA NEC/NOS [E78.5] INVALID FOR* More... Anxiety state, unspecified [F41.1] INVALID FOR*02/17/2016 More... More... Brachial neuritis or radiculitis NOS [M54.12] INVALID FOR*02/17/2016 More... Excessive or frequent menstruation [N92.0] INVALID FOR*02/02/2012 Irregular menstrual cycle [N92.6] INVALID FOR*02/02/2012 Unspecified symptom associated with female chester*INVALID FOR*02/02/2012 Abnormal uterine bleeding [N93.9] INVALID FOR*07/20/2016 Chronic cholecystitis with calculus [K80.10] INVALID FOR*02/17/2016 Other instructions from your clinician: ASSESSMENT/PLAN: 1. Acute non-recurrent pansinusitis - ICD9: 461.8, ICD10: J01.40 - Will begin treatment with Doxycline - The patient should also be given warm salt water gargles, throat lozenges and/or OTC throat spray as needed for the first 5-7 days of treatment. - Supportive care with plenty of fluids, rest, and analgesia prn. - Follow up in one week if symptoms persist or worsen. - -Increase fluid intake. Try to drink at least 8 glasses of non caffeinated fluids daily. --Rest as much as possible. -Do the nasal saline irrigation at least 2 x day to relieve nasal mucous and congestion: brands include Heber Med, Simply saline, Whitman nasal spray, or even the generic store brand one is ok. Take the entire course of antibiotics as prescribed. DO NOT stop taking it early, even if you are feeling better. -Practice good hygiene, wash hands frequently. -Monitor for signs of worsening infection: increased temperature, pain in face, ear pain or headaches or increase in nasal congestion/mucous that is not improving. -Educated patient on side effects of medication. * Seek medical care immediately, call 911, go to ER if you have chest pain, difficulty breathing, shortness of breath, inability to swallow. You can take an OTC probiotic such as Culturelle or Align to help with stomach upset/loose stool that you may get as a side effect of the antibiotic. - DOXYCYCLINE MONOHYDRATE 100 MG CAPSULE Prescriptions ordered this encounter Disp Refills Start End DOXYCYCLINE MONOHYDRATE 100 MG CAPSU* 20 c* 0 06/21/2017 07/01/2017 Route: ORAL Sig: Take 1 capsule by mouth twice daily for 10 days. Encounter Status:Closed by VALE QUINTEROS CNP on 06/21/17 PROGRESS Observed: 04/05/2017 Status: COMPLETED Source: [place] 10:54 AM [facility] REPOSITORY O ID: [id number] Author: Candida Miller Service: (none) Author Type: Physician Type: Progress Notes Filed: 04/05/2017 12:51 PM Note Text: Consultation requested by Dr. Seymour for an opinion regarding ganglion of right ankle. My final recommendations will be communicated back to the requesting physician by way of shared Medical record or letter to requesting physician via US mail. Initial Podiatric Office Visit: Chief Complaint: This 41 year old female who presents with chief complaint:right ankle pain HPI Patient presents to clinic for evaluation of right ankle. She complains of pain to right lateral ankle extending to plantar right foot. 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 Patient has been treated with nsaids, icing, stretching. The pain started to get better but recently the pain returned. She was referred for mri and the mri shows small ganglion in ankle. PAIN EVALUATION 04/05/2017 Pain Score: 2 2-10/10 Pain Location: Foot-Right right foot and ankle Description: Aching;Burning Duration Amount of Time: 6 Duration Units: Months Frequency: Continuous Intervention: Medication ibuprofen No results found for: HBA1C PCP: No primary care provider on file. PAST MEDICAL HISTORY Diagnosis Date - Leiomyoma of uterus, unspecified - PMH - PAST MEDICAL HISTORY OF resp. issues with activity No current outpatient prescriptions on file. No current facility-administered medications for this visit. ALLERGIES Allergen Reactions - Penicillins Hives PAST SURGICAL HISTORY Procedure Laterality Date - COLONOSCOP W/ OR W/O BRSH SPEC 02/21/12 Colonoscopy - EXCIS BREAST LESION 04/28/06 LEFT BREAST MASS X 2 - LAPAROSCOPIC CHOLEYCYSTECTOMY 05-16-12 - LIGATE FALLOPIAN TUBE 04/28/2006 Tubal ligation - PAST SURGICAL HISTORY OF 1987,1993- BUNIONECTOMY - PAST SURGICAL HISTORY OF 1990 RT. 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 [employer] Social History Main Topics Smoking status: Never Smoker Smokeless status: Never Used Alcohol use: Yes Comment: Occasionally Drug use: No Sexual activity: Yes Partners with: Male control/protection: Tubal Ligation REVIEW OF SYSTEMS GENERAL: Negative for Malaise, significant weight loss, fever RESPIRATORY: Negative for cough, wheezing and shortness of breath CARDIOVASCULAR: Negative for chest pain, leg swelling and palpitations GI: Negative for abdominal discomfort, blood in stools or black stools and change in bowel habits : Negative for dysuria, frequency and incontinence MUSCULOSKELETAL: Negative for joint pain or swelling, back pain, and muscle pain. SKIN: Negative for lesions, rash, and itching. HEMATOLOGY/LYMPHOLOGY Negative for prolonged bleeding, bruising easily, and swollen nodes. ENDOCRINE: Negative for cold or heat intolerance, polyuria, polydipsia and goiter. NEURO: negative Physical Exam: Constitutional: Pt is a well developed 41 year old female who is alert, oriented and cooperative Eyes: Following during examination. No redness or drainage. Respiratory: RR normal and nonlabored. Even breathing. No evidence of distress or shortness of breath. Psychology: Patient is engaged during conversation. Normal affect and mood. Does not appear depressed or anxious during encounter. Vascular: Dorsalis pedis and posterior tibial pulses palpable as b/l Capillary Fill time < 5 seconds to digits 1-5 b/l Skin temperature warm to warm proximal to distal b/l Hair growth present to digits Neurological: intact light touch/epicritic sensation b/l intact protective sensation no significant neurological deficits Dermatological: Nails 1-5 b/l appear normal. Webspaces clean and dry 1-4 b/l. Skin appears well hydrated and supple. good color, texture, turgor. No open lesions present. No callosities present. Musculoskeletal/Orthopaedic: Patient has pain to palpation of right lateral ankle along peroneal tendons extending to peroneal tendon insertion on 5th metatarsal base Foot type is pronated structurally AJ ROM is full with knee extended and flexed 1st MPJ is full when loaded and no pain or crepitus are noted with ROM. MTJ, STJ are full and free of pain and crepitus. +5/5 muscle strength dorsiflexion, plantarflexion, inversion, eversion b/l Mri reviewed. There is small fluid collection of posterior lateral ankle, possible small ganglion although not clinically palpable ASSESSMENT: (M76.71) Peroneal tendinitis of right lower extremity (primary encounter diagnosis) (M67.40) Ganglion cyst PLAN: 1. History and physical examination performed. 2. Discussed pain of right ankle. Most of her pain is along posterior lateral ankle along peroneal tendons extending to 5th metatarsal base. She does have ganglion in posterior leg but not at site of her pain. I suspect component of her pain is due to flattening of her feet. Discussed inserts. She does have but she feels that she is unable to wear them because she is always in dress shoes. 3. Discussed trying physical therapy to see if this will help 4. Oral steroid prescribed. 5. F/u in 4-5 weeks 6. Could attempt aspiration of ganglion but again, I suspect it would be difficult due to location and size. TATO Conroy Observed: 04/05/2017 Status: COMPLETED Source: [place] 10:30 AM [facility] REPOSITORY Office Visit (PODIWS) RUTHIE CORADO ([id number]) 1975 F Date Time Provider Department 04/05/17 10:30 AM CANDIDA MILLER During your visit today, we recorded the following information about you: Candida Miller DPM 04/05/2017 12:51 PM Signed Consultation requested by Dr. Seymour for an opinion regarding ganglion of right ankle. My final recommendations will be communicated back to the requesting physician by way of shared Medical record or letter to requesting physician via US mail. Initial Podiatric Office Visit: Chief Complaint: This 41 year old female who presents with chief complaint:right ankle pain HPI Patient presents to clinic for evaluation of right ankle. She complains of pain to right lateral ankle extending to plantar right foot. 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 Patient has been treated with nsaids, icing, stretching. The pain started to get better but recently the pain returned. She was referred for mri and the mri shows small ganglion in ankle. PAIN EVALUATION 04/05/2017 Pain Score: 2 2-10/10 Pain Location: Foot-Right right foot and ankle Description: Aching;Burning Duration Amount of Time: 6 Duration Units: Months Frequency: Continuous Intervention: Medication ibuprofen No results found for: HBA1C PCP: No primary care provider on file. PAST MEDICAL HISTORY Diagnosis Date - Leiomyoma of uterus, unspecified - PMH - PAST MEDICAL HISTORY OF resp. issues with activity No current outpatient prescriptions on file. No current facility-administered medications for this visit. ALLERGIES Allergen Reactions - Penicillins Hives PAST SURGICAL HISTORY Procedure Laterality Date - COLONOSCOP W/ OR W/O RUST SPEC 02/21/12 Colonoscopy - EXCIS BREAST LESION 04/28/06 LEFT BREAST MASS X 2 - LAPAROSCOPIC CHOLEYCYSTECTOMY 05-16-12 - LIGATE FALLOPIAN TUBE 04/28/2006 Tubal ligation - PAST SURGICAL HISTORY OF 1987,1993- BUNIONECTOMY - PAST SURGICAL HISTORY OF 1990 RT. 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[employer] Social History Main Topics Smoking status: Never Smoker Smokeless status: Never Used Alcohol use: Yes Comment: Occasionally Drug use: No Sexual activity: Yes Partners with: Male control/protection: Tubal Ligation REVIEW OF SYSTEMS GENERAL: Negative for Malaise, significant weight loss, fever RESPIRATORY: Negative for cough, wheezing and shortness of breath CARDIOVASCULAR: Negative for chest pain, leg swelling and palpitations GI: Negative for abdominal discomfort, blood in stools or black stools and change in bowel habits : Negative for dysuria, frequency and incontinence MUSCULOSKELETAL: Negative for joint pain or swelling, back pain, and muscle pain. SKIN: Negative for lesions, rash, and itching. HEMATOLOGY/LYMPHOLOGY Negative for prolonged bleeding, bruising easily, and swollen nodes. ENDOCRINE: Negative for cold or heat intolerance, polyuria, polydipsia and goiter. NEURO: negative Physical Exam: Constitutional: Pt is a well developed 41 year old female who is alert, oriented and cooperative Eyes: Following during examination. No redness or drainage. Respiratory: RR normal and nonlabored. Even breathing. No evidence of distress or shortness of breath. Psychology: Patient is engaged during conversation. Normal affect and mood. Does not appear depressed or anxious during encounter. Vascular: Dorsalis pedis and posterior tibial pulses palpable as b/l Capillary Fill time ANDlt; 5 seconds to digits 1-5 b/l Skin temperature warm to warm proximal to distal b/l Hair growth present to digits Neurological: intact light touch/epicritic sensation b/l intact protective sensation no significant neurological deficits Dermatological: Nails 1-5 b/l appear normal. Webspaces clean and dry 1-4 b/l. Skin appears well hydrated and supple. good color, texture, turgor. No open lesions present. No callosities present. Musculoskeletal/Orthopaedic: Patient has pain to palpation of right lateral ankle along peroneal tendons extending to peroneal tendon insertion on 5th metatarsal base Foot type is pronated structurally AJ ROM is full with knee extended and flexed 1st MPJ is full when loaded and no pain or crepitus are noted with ROM. MTJ, STJ are full and free of pain and crepitus. +5/5 muscle strength dorsiflexion, plantarflexion, inversion, eversion b/l Mri reviewed. There is small fluid collection of posterior lateral ankle, possible small ganglion although not clinically palpable ASSESSMENT: (M76.71) Peroneal tendinitis of right lower extremity (primary encounter diagnosis) (M67.40) Ganglion cyst PLAN: 1. History and physical examination performed. 2. Discussed pain of right ankle. Most of her pain is along posterior lateral ankle along peroneal tendons extending to 5th metatarsal base. She does have ganglion in posterior leg but not at site of her pain. I suspect component of her pain is due to flattening of her feet. Discussed inserts. She does have but she feels that she is unable to wear them because she is always in dress shoes. 3. Discussed trying physical therapy to see if this will help 4. Oral steroid prescribed. 5. F/u in 4-5 weeks 6. Could attempt aspiration of ganglion but again, I suspect it would be difficult due to location and size. Candida Miller DPM Referring Provider: CHACHA SEYMOUR V [[id number]] Allergies As of Date: 04/05/2017 Noted Allergy Reaction PENICILLINS 01/27/2005 4 - Hives Date Reviewed: 04/05/2017 Reviewed by: Adelaide Lance RN - Fully Assessed Reason for Visit: New Patient [172] Primary Visit Diagnosis:Peroneal tendinitis of right lower extremity [M76.71] Other Visit Diagnosis:Ganglion cyst [M67.40] Order(s):methylPREDNISolone (MEDROL, ALVARADO,) 4 mg Dose-PackTake as directedDisp: 1 PackageRfl: 0 CONSULT TO PHYSICAL THERAPY [9032] Order #: [id number]: 1 Prescriptions as of 04/05/2017 Sig: METHYLPREDNISOLONE 4 MG TABLE* Take as directed Problem List As Of Date 04/05/2017 Noted Resolved Routine General Medical Examination at a [facility]*INVALID FOR*02/02/2012 More... HYPERLIPIDEMIA NEC/NOS [E78.5] INVALID FOR* More... Anxiety state, unspecified [F41.1] INVALID FOR*02/17/2016 More... More... Brachial neuritis or radiculitis NOS [M54.12] INVALID FOR*02/17/2016 More... Excessive or frequent menstruation [N92.0] INVALID FOR*02/02/2012 Irregular menstrual cycle [N92.6] INVALID FOR*02/02/2012 Unspecified symptom associated with female chester*INVALID FOR*02/02/2012 Abnormal uterine bleeding [N93.9] INVALID FOR*07/20/2016 Chronic cholecystitis with calculus [K80.10] INVALID FOR*02/17/2016 Prescriptions ordered this encounter Disp Refills Start End METHYLPREDNISOLONE 4 MG TABLETS IN A* 1 Pa* 0 04/05/2017 Sig: Take as directed Encounter Status:Closed by CANDIDA MILLER DPM on 04/05/17 ALLERGIES ALLERGIES DATE TYPE / CODE NAME / CODE REACTION SEVERITY SOURCE 07/24/2017 Drug Penicillins/[id number] Hives Unknown [place] Allergy/416 0476(RXNORM) [facility] 075705([facility] ED CT) Repository 01/27/2005 Drug PENICILLINS HIVES [facility] Class/98[address] [place] 1003(SNOMED Repository CT) ENCOUNTERS ENCOUNTERS ADMIT/DISCHARGE ACCOUNT ADMITTING ENCOUNTER LOCATION SOURCE NUMBER CLASS 03/24/[id number] [facility] ing:MRI Repository 03/15/[id number] [facility] ing:MTRAD Repository 03/15/2018/03/15/19 [id number] Ambulatory BMSBuilding:B [place] 19 MS.[facility] Repository 09/28/2017 [id number] Ambulatory BMSBuilding:B [place] MS.[facility] Repository 09/22/[id number] [facility] ing:OPBI Repository 09/15/2017/09/16/19 [id number] Ambulatory BMSBuilding:B [place] 18 MS.[facility] Repository 07/24/2017/07/25/19 [id number] Emergency [address] ing:ED Repository 06/21/2017/06/23/19 [id number] Ambulatory [address] Repository 05/12/2017 [id number] Ambulatory BMSBuilding:B [place] MS.[facility] Repository 04/05/2017/04/05/19 [id number] Ambulatory [address] Repository PAYERS PAYERS ENCOUNTER GUARANTOR PAYER SUBSCRIBER SOURCE 03/24/2018 RUTHIE D Primary RUTHIE D [place] [id number] Insurance:ANTHEMPolic READINGERDOB: Community IMPALA y [place]: [id number] [id number] Repository [address]Bkf: (330) Date:1368-11-84HY [phone] () [address]OBBL, [place] [address]XQ: 03/24/2018 Secondary NOT GIVENUNK [place] Insurance:SELF PAY [facility] Number: Effective Repository Date:2018-03-17 03/15/2018 RUTHIE D Primary RUTHIE D [place] [id number] Insurance:ANTHEMPolic READINGERDOB: Community IMPALA y Number: [id number], [place] [id number] Repository [address]Aza: (330) Date:7439-53-60RT [phone] () 980184QMBLOQN, [place] [address]JK: 03/15/2018 Secondary NOT GIVENUNK [place] Insurance:SELF PAY [facility] Number: Effective Repository Date:2018-03-15 03/15/2018 RUTHIE D Primary RUTHIE D [place] [id number] Insurance:ANTHEMPolic READINGERDOB: Community IMPALA y Number: [id number], [place] [id number] Repository [address]Arw: (330) Date:7907-06-04ZX [phone] () [place]89[address], [place] [address]OI: 03/15/2018 Secondary NOT GIVENUNK [place] Insurance:SELF PAY [facility] Number: Effective Repository Date:2018-03-15 09/28/2017 RUTHIE D Primary RUTHIE D [place] [id number] Insurance:ANTHEMPolic READINGERDOB: Community IMPALA y Number: [id number], [place] [id number] Repository [address]Tql: (330) Date:8243-62-01HJ [phone] () 387[place], [place] [address]PS: 09/28/2017 Secondary NOT GIVENUNK [place] Insurance:SELF PAY [facility] Number: Effective Repository Date:2017-09-27 09/22/2017 RUTHIE D Primary RUTHIE D [place] [id number] Insurance:ANTHEMPolic READINGERDOB: Community IMPALA y Number: [id number], [place] [id number] Repository [address]Osa: (330) Date:5793-77-57YN [phone] () 972566DLNGMGJ, [place] [address]JO: 09/22/2017 Secondary NOT GIVENUNK [place] Insurance:SELF PAY [facility] Number: Effective Repository Date:2017-09-15 09/15/2017 RUTHIE D Primary RUTHIE D [place] [id number] Insurance:MARY READINGERDOB: [facility] BASSETTPolicy Number: [id number], [place] [id number] Repository [address]Jqb: (330) Date:6399-26-92CX [phone] () [address]KDUDZD, [place] [address]QO: 09/15/2017 Secondary NOT GIVENUNK [place] Insurance:SELF PAY [facility] Number: Effective Repository Date:2017-09-13 07/24/2017 RUTHIE D Primary RUTHIE D [place] [id number] Insurance:OBWC READINGERDOB: Community IMPALA CAREWORKSPolicy [id number], [place] Number: Repository [address]Irc: [address] [id number] [phone] () Date:0165-23-63WX [address]FIXDDNphil[place], [place] [address]TA: 07/24/2017 Secondary RUTHIE D [place] Insurance:[id number] READINGERDOB: Community PPolicy Number: [id number] [id number] Repository Date: [place], [place] [address]VY: 07/24/2017 Tertiary NOT GIVENUNK [place] Insurance:SELF PAY [facility] Number: Effective Repository Date:2017-07-24 05/12/2017 Ruthie Primary Ruthie [place] [id number] Insurance:ANTHEMPolic ReadingerDOB: Community Impala y Number: [id number] [id number] Repository [address]Ytk: (330) Date:3538-06-22ZX [phone] () 115406KDSMYDQ, [place] [address]TG: 05/12/2017 Secondary NOT GIVENUNK [place] Insurance:SELF PAY [facility] Number: Effective Repository Date:2017-04-29
== END ==
LOC: MRI 12:27
PROVIDERS: Referring Provider Nurse Practitioner Family; Visit Provider Nurse Practitioner Family
DX: M54.12 Radiculopathy, cervical region (principal); R20.0 Anesthesia of skin; R93.89 Abnormal findings on diagnostic imaging of other specified body structures
CPT/HCPCS: 72141

== ENCOUNTER → 2019-09-21 17:44 | Outpatient (CLI) | payer BC, SELFPAY ==
[2018-11-21 12:13] VITALS: BMI 29.6
== END ==
LOC: MTDU 17:44
PROVIDERS: PCP Internal Medicine
DX: Z20.828 Contact with and (suspected) exposure to other viral communicable diseases (principal); B34.8 Other viral infections of unspecified site
CPT/HCPCS: 87635; G2023; U0003

== ENCOUNTER → 2019-10-04 | Outpatient (CLI) | payer BC, SELFPAY ==
[2019-10-04 08:30] VITALS: BMI 29.6
[2019-10-04 15:55] LABS: Chlamydia Trachomatis by PCR Negative (Negative); Neisserai gonorrhoeae by PCR Negative (Negative); Probe Check PASS; Sample Adequacy Control PASS; Specimen Processing Control PASS
== END | disposition home or self-care (01) ==
LOC: LABSPEC 10:47
PROVIDERS: PCP Internal Medicine; Referring Provider Nurse Practitioner Women's Health; Visit Provider Nurse Practitioner Women's Health
DX: Z11.3 Encounter for screening for infections with a predominantly sexual mode of transmission (principal)
CPT/HCPCS: 87491; 87591

== ENCOUNTER → 2019-12-06 12:34 | Outpatient (CLI) | payer BC, SELFPAY ==
[2019-10-04 08:30] VITALS: BMI 29.6
--- NOTE | 2019-12-06 12:35 | US_ITS ---
STUDY: ULTRASOUND OF THE FEMALE PELVIS - COMPLETE REASON FOR EXAM: Female, 44 years old. LLQ PAIN LMP: Status post hysterectomy. TECHNIQUE: Transabdominal and Transvaginal TECHNICAL QUALITY: Adequate. COMPARISON: None. FINDINGS: The patient is status post hysterectomy. The right ovary is visualized. The right ovary measures 3.7 cm x 2.9 cm x 1.9 cm. A dominant follicle is seen within the measuring 1.8 cm. There is no visualized right adnexal mass or complex lesion. There is normal arterial and normal venous vascularity. The left ovary is visualized. The left ovary measures 1.8 cm x 1.2 cm x 1.3 cm. There is no left ovarian cyst or ovarian mass. There is no visualized left adnexal mass or complex lesion. There is normal arterial and normal venous vascularity. There is no fluid in the cul-de-sac. The pre void volume of the bladder was 769 ml. Polycystic ovary disease: No. US/Transvaginal Non- IMPRESSION: Status post hysterectomy. Dominant follicle in the right ovary. Electronically Signed: Fito Daniels, at 15:57 EDT , Service support ,
--- NOTE | 2019-12-06 12:35 | US_ITS ---
STUDY: ULTRASOUND OF THE FEMALE PELVIS - COMPLETE REASON FOR EXAM: Female, 44 years old. LLQ PAIN LMP: Status post hysterectomy. TECHNIQUE: Transabdominal and Transvaginal TECHNICAL QUALITY: Adequate. COMPARISON: None. FINDINGS: The patient is status post hysterectomy. The right ovary is visualized. The right ovary measures 3.7 cm x 2.9 cm x 1.9 cm. A dominant follicle is seen within the measuring 1.8 cm. There is no visualized right adnexal mass or complex lesion. There is normal arterial and normal venous vascularity. The left ovary is visualized. The left ovary measures 1.8 cm x 1.2 cm x 1.3 cm. There is no left ovarian cyst or ovarian mass. There is no visualized left adnexal mass or complex lesion. There is normal arterial and normal venous vascularity. There is no fluid in the cul-de-sac. The pre void volume of the bladder was 769 ml. Polycystic ovary disease: No. US/Pelvic (Non ) IMPRESSION: Status post hysterectomy. Dominant follicle in the right ovary. Electronically Signed: Fito Daniels, at 15:57 EDT , Service support ,
--- NOTE | 2019-12-06 12:35 | BI_ITS ---
MAMMOGRAPHY - BILATERAL SCREENING REASON FOR EXAM: Female, 44 years old. Routine annual screening examination. PERTINENT HISTORY: Non-contributory. Prior right excisional breast biopsy. TECHNIQUE: Digital bilateral breast deep (3D mammographic acquisition) in the CC and MLO projections. 2-D mediolateral oblique (MLO) and craniocaudad (CC) views of both breasts were obtained. CAD: Full Field Digital Mammography with Computer Added Detection was performed. COMPARISON: Comparison is made with prior examination dated 09/22/2017. FINDINGS: Breast Composition: The breasts are heterogeneously dense, which may obscure small masses. There is a 1.4 cm x 2.2 cm well-defined nodule in the inferior retroareolar region of the left breast. A tissue clip marker is seen within it. This has decreased in size as compared to prior study. Stable surgical clips in the left axillary region. No other significant abnormalities are identified. There has been no significant change since the prior study. BI/SCREEN MAMM (CAD) W/DEEP BILAT IMPRESSION: Stable bilateral screening mammogram. Yearly follow-up mammogram recommended. (A) ASSESSMENT CATEGORY: BIRADS Category 2: Benign. A letter regarding these results will be sent to the patient by the facility within 30 days. Approximately 10% of breast cancers are not detected by mammography. A normal mammogram should not delay biopsy of a clinically suspicious abnormality. [id number] Electronically Signed: Fito Daniels, at 15:37 EDT , Service support ,
== END ==
PROVIDERS: PCP Internal Medicine; Referring Provider Nurse Practitioner Women's Health; Visit Provider Nurse Practitioner Women's Health
DX: Z12.31 Encounter for screening mammogram for malignant neoplasm of breast (principal); R10.2 Pelvic and perineal pain; R10.32 Left lower quadrant pain
CPT/HCPCS: 76830; 76856; 77063; 77067; 93976

== ENCOUNTER → 2021-08-07 | Outpatient (CLI) | payer BC, SELFPAY ==
--- NOTE | 2021-08-07 16:10 | RAD_ITS ---
INDICATION: neck pain, left side EXAMINATION/TECHNIQUE: X-RAY - XR Spine Cervical 4 or 5 Views COMPARISON: 03/15/2018 FINDINGS: VERTEBRAE: Preserved vertebral body height. No fracture. No spondylolisthesis. Preservation of the normal cervical lordosis. DISCS: Stable degenerative disc space loss with anterior posterior osteophytes C5-6 and C6-7. NECK SOFT TISSUES: No prevertebral soft tissue widening. LUNG APICES: Clear. RAD/Cerv Spine 4 or 5 Views IMPRESSION: Stable degenerative disc disease and cervical spondylosis at C5-6 and C6-7. Electronically Signed: Misael Lopez MD at 20:03 EDT ,
[2021-08-07 17:19] LABS: Basophil# 0.04 X10^3/uL; Basophil% 0.5 % (0-1); Eosinophil# 0.23 X10^3/uL; Eosinophils% 2.7 % (0-5); Hematocrit 38.5 % (37-47); Lymphocyte % 16.6 % (19-41); Mean Corp Hgb Conc 33.8 g/dL (32-36); Mean Corpuscular Hgb 27.3 pg (27.0-32.0); Mean Corpuscular Volume 80.7 fL (81-99); Mean Platelet Vol. 11.4 fl (6.2-12.0); Monocyte# 0.76 X10^3/uL; NRBC Flagged by Analyzer 0 % (0-5); Neutrophil # 5.95 X10^3/uL (2.7-7.7); Neutrophil % 70.7 % (47-70); Platelet Count 222 K/mm3 (150-450); RBC Distribution Width CV 13.4 % (11.6-14.6); RBC Distribution Width SD 39.1 fl (35.1-43.9); Red Blood Count 4.77 M/mm3 (4.2-5.4); White Blood Count 8.4 K/mm3 (4.4-11.0)
[2021-08-07 17:20] LABS: ALB/GLOB Ratio 0.9 RATIO (0.9-2.4); AST(SGOT) 22 U/L (15-37); Alanine Aminotransfer ALT/SGPT 34 U/L (13-56); Albumin, Serum 3.7 g/dL (3.2-5.0); Alkaline Phosphatase 79 U/L (45-117); Anion Gap 6 (5-15); BUN 23 mg/dL (7-18); BUN/Creat Ratio 27.9 RATIO (10-20); Calcium,Total 8.9 mg/dL (8.5-10.1); Chloride 104 mmol/L (98-107); Creatinine, Serum 0.82 mg/dL (0.55-1.02); EST Glomerular Filtration Rate 79 mL/min (>60); Est Glom Filt Rate - Afr Amer 95 mL/min (>60); Globulin 3.9 g/dL (2.2-4.2); Glucose 93 mg/dL (74-106); Potassium 3.7 mmol/L (3.5-5.1); Protein, Total 7.6 g/dL (6.4-8.2); Sodium Level 137 mmol/L (136-145); T4 Free Direct 0.95 ng/dL (0.76-1.46); Thyroid Stim Hormone (TSH) 1.21 uIU/mL (0.358-3.74)
== END | disposition home or self-care (01) ==
LOC: BIMLAB 15:41 → RAD 16:06
PROVIDERS: PCP Internal Medicine; Referring Provider Physician Assistant; Visit Provider Physician Assistant
DX: M54.2 Cervicalgia (principal); Z13.29 Encounter for screening for other suspected endocrine disorder
CPT/HCPCS: 36415; 72050; 80053; 84439; 84443; 85025

== ENCOUNTER 2022-07-26 17:39 | Emergency (ER) | payer BC, SELFPAY ==
[2022-07-26 17:40] VITALS: BP 120/64; PULSE 84; RESP 16; TEMP 36.3; O2SAT 98; BMI 33.6
--- NOTE | 2022-07-26 17:59 | EDS_ITS ---
HPI HPI - GI History of Present Illness Chief Complaint: Abd Pain Informant: patient Abdominal Pain/Flank Pain Onset: Weeks Context: Gradual Onset Timing: Intermittent Quality: Aching Location: RUQ and Right Flank Current Severity: Mild Maximum Severity: Moderate Worsened by: Food Relieved by: Nothing Nausea/Vomiting/Emesis GI Symptom: Positive for Nausea; Negative for Vomiting Diarrhea/Melena/Hematochezia GI Symptom: Negative for Diarrhea, Melena or Hematochezia Narrative Narrative: Healthy 46-year-old has been having weeks of intermittent abdominal pain after almost every meal. She had a banana with coffee this morning and had the discomfort. She thinks it is pretty quick afterwards, without 1-2-hour delay or anything like that. Some nausea but no vomiting. Wraps around to her right side and back opposite the right upper quadrant at times. No melena or bright red blood per rectum. Had her gallbladder out remotely. No history of GERD or takes any stomach medications for that. PFSH PFS Medical History Contusion of left knee History of anemia Left ankle sprain No significant medical problems Sprain of left foot Home Medications dicyclomine 10 mg capsule 20 mg PO Q6H PRN abdominal pain #30 CAPSULES 07/26/22 [Rx Last Taken Unknown] ondansetron 4 mg disintegrating tablet 8 mg PO Q8H PRN PRN Nausea #20 tabs 07/26/22 [Rx Last Taken Unknown] pantoprazole 40 mg tablet,delayed release 40 mg PO DAILY #30 tabs 07/26/22 [Rx Last Taken Unknown] Allergy/AdvReac Type Severity Reaction Status Date / Time Penicillins [PCN] Allergy Hives Verified 07/26/22 17:42 Family History Sister CVA (cerebral vascular accident) Thyroid disorder Depression Mother Thyroid disorder Surgical History S/P bunionectomy S/P cholecystectomy S/P hysterectomy (~2016) S/P lumpectomy of breast S/P tonsillectomy Social History household members: children number of children: 3 current occupational status: employed current occupation: [employer] history of recent travel: Yes out of state: Yes Smoking Status: Never smoker alcohol intake: current alcohol intake frequency: holidays/special occasions only substance use type: does not use what type of physical activity do you participate in: none seatbelt use: always do you feel safe at home: Yes additional social history: ROS ROS ED Constitutional Constitutional ED: Denies chills or fever(s) Eyes Eyes: Denies change in vision or diplopia ENT ENT ED: Denies rhinorrhea or sore throat Cardiovascular Cardiovascular: Denies chest pain or palpitations Respiratory/Chest Respiratory/Chest: Denies cough or dyspnea Gastrointestinal Gastrointestinal: Reports abdominal pain and nausea; Denies diarrhea, hematochezia, melena or vomiting Genitourinary Genitourinary ED: Denies dysuria or hematuria Musculoskeletal Musculoskeletal: Reports back pain; Denies neck pain Integumentary Denies abscess or rash Neurologic Neurologic: Denies headache(s), paresthesias or weakness Psychiatric Psychiatric: Denies anxiety or suicidal thoughts EXAM Physical Exam Const Vital Signs: 07/26/22 17:40 Temperature 97.4 F L Temperature Source Temporal Pulse Rate 84 Respiratory Rate 16 Blood Pressure 120/64 Blood Pressure Mean 82 Pulse Ox 98 Oxygen Delivery Method Room Air Positive well nourished and well developed General Appearance ED: well developed and NAD HEENT Reports moist mucous membranes normocephalic and atraumatic Eyes PERRL and EOMs intact bilaterally Neck full ROM and supple Resp normal respiratory effort and clear to auscultation bilaterally Cardio regular rate, regular rhythm and no murmurs GI non-tender and non-distended Auscultation: normoactive bowel sounds Palpation: soft Back/Spine no CVA tenderness General Back: other FROM Extremity normal to inspection General Extremety ED: Negative for edema, pulses abnormal or tenderness General Extremity: Negative for edema or pulses abnormal Neuro oriented x3, CN's II-XII intact bilaterally and no sensory deficits noted Sensorium / Orientation: awake and alert Motor Exam: strength 5/5 throughout Skin no rashes or lesions noted and no wounds MDM MDM MDM Narrative Medical decision making narrative: Patient has a very benign abdomen, she was offered analgesics and antiemetics right now but declined. She looks well. I think reasonable to obtain blood work including liver enzymes and lipase, to evaluate for biliary pathology status postcholecystectomy. If this is all negative, I would treat her with a PPI and have her follow-up with her primary care doctor, if she has persistent symptoms she may need to be referred to GI for an EGD. Patient was agreeable to this plan, the labs all look really good. She is reassured, started on pantoprazole and she will follow-up. Lab Data Attestation: I reviewed the patient's lab results. Labs: Laboratory Results - last 24 hr 07/26/22 07/26/22 07/26/22 18:07 18:07 18:10 WBC 8.1 RBC 4.82 Hgb 12.7 Hct 38.8 MCV 80.5 L MCH 26.3 L MCHC 32.7 RDW Std Deviation 38.5 RDW Coeff of [place] 13.3 Plt Count 232 MPV 10.8 Immature Gran % (Auto) 0.200 Neut % (Auto) 71.3 H Lymph % (Auto) 18.1 L [place] % (Auto) 7.1 Eos % (Auto) 2.6 Baso % (Auto) 0.7 Absolute Neuts (auto) 5.8 Absolute Lymphs (auto) 1.47 Nucleated RBC % 0 Sodium 140 Potassium 3.8 Chloride 105 Carbon Dioxide 26.0 Anion Gap 9 BUN 17 Creatinine 0.85 Estim Creat Clear Calc 72.83 Est GFR (MDRD) Af Amer 91 Est GFR (MDRD) Non-Af 75 BUN/Creatinine Ratio 19.9 Glucose 94 Calcium 9.6 Total Bilirubin 0.40 AST 18 ALT 21 Alkaline Phosphatase 99 Total Protein 7.5 Albumin 3.6 Globulin 3.9 Albumin/Globulin Ratio 0.9 Lipase 30 Urine Color Yellow Urine Clarity Clear Urine pH 6.0 Ur Specific [place] 1.015 Urine Protein Negative Urine Glucose (UA) Normal Urine Ketones Negative Urine Occult Blood 25 H Urine Nitrite Negative Urine Bilirubin Negative Urine Urobilinogen Normal Ur Leukocyte Esterase 25 H Urine RBC 0 SEEN Urine WBC 0-5 SEEN Ur Squamous Epith Cells 0-5 SEEN Urine Bacteria 0 SEEN Urine Mucus 0 SEEN Discharge Plan Triage Chief Complaint: Abd Pain ED Provider: Andrea Gómez Dx/Rx/DC Orders Clinical Impression: Right upper quadrant abdominal pain Instructions: Abdominal Pain Prescriptions: New pantoprazole 40 mg tablet,delayed release (DR/EC) 40 mg PO DAILY Qty: 30 0RF dicyclomine 10 mg capsule 20 mg PO Q6H PRN (Reason: abdominal pain) Qty: 30 0RF ondansetron [ondansetron] 4 mg tablet,disintegrating 8 mg PO Q8H PRN PRN (Reason: Nausea) Qty: 20 0RF Primary Care Provider: Nicolas Colon Referrals: Nicolas Colon MD [Primary Care Provider] - 1-2 Weeks Disposition Disposition: Home, Self Care
[2022-07-26 18:19] LABS: Absolute Lymphocyte Count 1.47 X10^3/uL (0.83-4.51); Absolute Neutrophil Count 5.8 X10^3/uL (2.0-7.7); Basophil# 0.06 X10^3/uL; Basophil% 0.7 % (0-1); Eosinophil# 0.21 X10^3/uL; Eosinophils% 2.6 % (0-5); Hematocrit 38.8 % (37-47); Hemoglobin 12.7 g/dL (12.0-15.0); Lymphocyte # 1.47 X10^3/ul (0.83-4.51); Lymphocyte % 18.1 % (19-41); Mean Corp Hgb Conc 32.7 g/dL (32-36); Mean Corpuscular Hgb 26.3 pg (27.0-32.0); Mean Corpuscular Volume 80.5 fL (81-99); Mean Platelet Vol. 10.8 fl (6.2-12.0); Monocyte# 0.58 X10^3/uL; Monocyte% 7.1 % (0-10); NRBC Flagged by Analyzer 0 % (0-5); Neutrophil % 71.3 % (47-70); Platelet Count 232 K/mm3 (150-450); RBC Distribution Width CV 13.3 % (11.6-14.6); RBC Distribution Width SD 38.5 fl (35.1-43.9); Red Blood Count 4.82 M/mm3 (4.2-5.4); White Blood Count 8.1 K/mm3 (4.4-11.0)
[2022-07-26 18:20] LABS: Bacteria 0 SEEN /hpf (None Seen); Mucous, Urine 0 SEEN /hpf (<or=2+); Red Blood Cells-Urine 0 SEEN /hpf (0-5)
[2022-07-26 18:25] LABS: Color, Urine Yellow (Yellow); Glucose, Dipstick Normal (Normal); Ketone-Dipstick Negative (Negative); Leukocyte Esterase-Dipstick 25 /ul (Negative); Nitrite-Dipstick Negative (Negative); Occult Blood-Urine 25 /ul (Negative); Protein-Dipstick Negative (Negative); Specific Gravity, Urine 1.015 (1.002-1.030); Urine Bilirubin Dipstick Negative (Negative); Urine Clarity Clear (Clear); Urine Urobilinogen Normal (Normal)
[2022-07-26 18:38] LABS: ALB/GLOB Ratio 0.9 RATIO (0.9-2.4); AST(SGOT) 18 U/L (15-37); Alanine Aminotransfer ALT/SGPT 21 U/L (13-56); Albumin, Serum 3.6 g/dL (3.2-5.0); Alkaline Phosphatase 99 U/L (45-117); Anion Gap 9 (5-15); BUN 17 mg/dL (7-18); BUN/Creat Ratio 19.9 RATIO (10-20); Calcium,Total 9.6 mg/dL (8.5-10.1); Chloride 105 mmol/L (98-107); Creatinine, Serum 0.85 mg/dL (0.55-1.02); EST Glomerular Filtration Rate 75 mL/min (>60); Est Glom Filt Rate - Afr Amer 91 mL/min (>60); Estimated Creatinine Clearance 72.83 ml/min; Globulin 3.9 g/dL (2.2-4.2); Glucose 94 mg/dL (74-106); Lipase 30 U/L (13-75); Potassium 3.8 mmol/L (3.5-5.1); Protein, Total 7.5 g/dL (6.4-8.2); Sodium Level 140 mmol/L (136-145)
[2022-07-26 18:42] LABS: Squamous Epithelial Cells - UA 0-5 SEEN /hpf (5-10); White Blood Cells 0-5 SEEN /hpf (0-5)
[2022-07-26] MEDS: Pantoprazole Sodium 40 MG Tablet PO (19:23)
== END 2022-07-26 19:29 | disposition home or self-care (01) ==
LOC: ED 18:19
PROVIDERS: Emergency Provider Emergency Medicine; PCP Internal Medicine; Visit Provider Emergency Medicine
DX: R10.11 Right upper quadrant pain (principal); R11.0 Nausea
CPT/HCPCS: 80053; 81001; 83690; 85025; 99282; A4216

== ENCOUNTER 2022-07-31 14:52 | Emergency (ER) | payer BC, SELFPAY ==
[2022-07-31 14:52] VITALS: BP 128/71; PULSE 80; RESP 16; TEMP 36.6; O2SAT 100; BMI 33.6
--- NOTE | 2022-07-31 15:08 | ED.VIS.GI ---
HPI HPI - GI History of Present Illness Chief Complaint: Abd Pain Informant: patient Abdominal Pain/Flank Pain Onset: Weeks Context: Gradual Onset Timing: Continuous Quality: Aching, Burning, Cramping and Sharp Location: RUQ Worsened by: Food Relieved by: Nothing Nausea/Vomiting/Emesis GI Symptom: Positive for Nausea; Negative for Vomiting Diarrhea/Melena/Hematochezia GI Symptom: Negative for Diarrhea, Melena or Hematochezia Associated Symptoms Associated Symptoms: Negative for Dysuria, Frequency or Hematuria Narrative Narrative: Patient presents with aminal pain that has been getting worse over the past couple weeks. Patient describes it as constant. Patient states it is over the right upper quadrant and wraps around to her back. Patient describes her pain as aching, cramping, sharp, and stabbing. Patient states it is worse after eating sometimes but not always. Patient states nothing makes it better. Patient admits to nausea but denies any vomiting. Patient denies any diarrhea, melena, or hematochezia. Patient denies any dysuria, hematuria, or frequency. Patient denies any abnormal vaginal bleeding or discharge. [facility] Medical History Contusion of left knee History of anemia Left ankle sprain No significant medical problems Sprain of left foot Home Medications dicyclomine 10 mg capsule 20 mg PO Q6H PRN abdominal pain #30 CAPSULES 07/26/22 [Rx Last Taken Unknown] ondansetron 4 mg disintegrating tablet 8 mg PO Q8H PRN PRN Nausea #20 tabs 07/26/22 [Rx Last Taken Unknown] pantoprazole 40 mg tablet,delayed release 40 mg PO DAILY #30 tabs 07/26/22 [Rx Last Taken Unknown] hydrocodone-acetaminophen 5-325mg 5mg-325mg 1 tab PO Q6H PRN PRN Pain 3 days #10 TABLETS 07/31/22 [Rx Last Taken Unknown] Allergy/AdvReac Type Severity Reaction Status Date / Time Penicillins [PCN] Allergy Hives Verified 07/31/22 14:54 Family History Sister CVA (cerebral vascular accident) Thyroid disorder Depression Mother Thyroid disorder Surgical History S/P bunionectomy S/P cholecystectomy S/P hysterectomy (~2017) S/P lumpectomy of breast S/P tonsillectomy Social History household members: children number of children: 3 current occupational status: employed current occupation: [employer] of [employer] history of recent travel: Yes out of state: Yes Smoking Status: Never smoker alcohol intake: current alcohol intake frequency: holidays/special occasions only substance use type: does not use what type of physical activity do you participate in: none seatbelt use: always do you feel safe at home: Yes additional social history: ROS ROS ED Constitutional Constitutional ED: Denies chills or fever(s) Eyes Eyes: Denies blurry vision or change in vision ENT ENT ED: Denies rhinorrhea or sore throat Cardiovascular Cardiovascular: Denies chest pain or palpitations Respiratory/Chest Respiratory/Chest: Denies cough or dyspnea Gastrointestinal Gastrointestinal: Reports abdominal pain and nausea; Denies diarrhea, melena or vomiting Genitourinary Genitourinary ED: Denies dysuria or hematuria Musculoskeletal Musculoskeletal: Reports back pain; Denies neck pain Integumentary Denies abscess or rash Neurologic Neurologic: Denies headache(s) or weakness Allergic/Immunologic Allergic/Immunologic ED: Denies mouth swelling or urticaria EXAM Physical Exam Const Vital Signs: 07/31/22 14:52 07/31/22 17:08 Temperature 97.8 F 97.6 F L Temperature Source Temporal Pulse Rate 80 64 Respiratory Rate 16 16 Blood Pressure 128/71 H 124/71 H Blood Pressure Mean 90 Pulse Ox 100 100 Oxygen Delivery Method Room Air Positive well nourished and well developed General Appearance ED: well developed HEENT Reports moist mucous membranes Neck supple and no JVD Resp normal respiratory effort and clear to auscultation bilaterally Cardio regular rate, regular rhythm and no murmurs GI normal to inspection, nondistended, normoactive bowel sounds Palpation: soft and tender RUQ; Negative for guarding or rebound tenderness present Extremity normal to inspection General Extremety ED: Negative for edema or tenderness General Extremity: Negative for edema Neuro oriented x3, CN's II-XII intact bilaterally and no sensory deficits noted Sensorium / Orientation: alert Motor Exam: strength 5/5 throughout Psych mental status grossly normal Skin no rashes or lesions noted MDM MDM MDM Narrative Medical decision making narrative: Differential diagnosis includes hepatitis, choledocholithiasis, peptic ulcer disease, duodenal ulcer, pyelonephritis, urinary calculus, and pancreatitis. CBC will be obtained to assess for leukocytosis and anemia. Comprehensive metabolic profile will be obtained to assess for hepatic function, renal function, and electrolyte abnormality. Lipase will be obtained to assess for pancreatitis. Urinalysis will be obtained to assess for urinary tract infection and hematuria. CT scan of the abdomen pelvis will be obtained to assess for ureteral calculus and pancreatitis. Lab Data Attestation: I reviewed the patient's lab results. Lab results narrative: CBC was reviewed and was within normal limits. Comprehensive metabolic profile was reviewed and was within normal limits. Lipase was reviewed and was normal. Urinalysis was reviewed. There is no evidence of urinary tract infection or hematuria. Labs: Laboratory Results - last 24 hr 07/31/22 07/31/22 07/31/22 15:32 15:32 15:40 WBC 7.0 RBC 4.96 Hgb 13.2 Hct 39.9 MCV 80.4 L MCH 26.6 L MCHC 33.1 RDW Std Deviation 38.5 RDW Coeff of [place] 13.2 Plt Count 226 MPV 10.8 Immature Gran % (Auto) 0.400 Neut % (Auto) 64.5 Lymph % (Auto) 22.6 [place] % (Auto) 8.2 Eos % (Auto) 3.4 Baso % (Auto) 0.9 Absolute Neuts (auto) 4.5 Absolute Lymphs (auto) 1.57 Nucleated RBC % 0 Sodium 140 Potassium 3.5 Chloride 105 Carbon Dioxide 28.0 Anion Gap 7 BUN 10 Creatinine 0.90 Estim Creat Clear Calc 68.79 Est GFR (MDRD) Af Amer 86 Est GFR (MDRD) Non-Af 71 BUN/Creatinine Ratio 11.2 Glucose 86 Calcium 9.5 Total Bilirubin 0.30 AST 21 ALT 23 Alkaline Phosphatase 98 Total Protein 7.6 Albumin 3.6 Globulin 4.0 Albumin/Globulin Ratio 0.9 Lipase 25 Urine Color Yellow Urine Clarity Clear Urine pH 6.0 Ur Specific [place] 1.010 Urine Protein Negative Urine Glucose (UA) Normal Urine Ketones Negative Urine Occult Blood 10 H Urine Nitrite Negative Urine Bilirubin Negative Urine Urobilinogen Normal Ur Leukocyte Esterase 25 H Urine RBC 0 SEEN Urine WBC 0-5 SEEN Ur Squamous Epith Cells 0-5 SEEN Urine Bacteria 0 SEEN Urine Mucus 0 SEEN Radiography Diagnostic Testing: Clinical Impression(s) from Imaging Studies Abdomen/Pelvis CT 07/31/22 15:14 IMPRESSION: No acute or inflammatory disease or bowel obstruction. Electronically Signed: Sunil Schulz MD at 16:47 EDT Reading Location ID and State: [address] [place] [address] Tel , Service support , CT scan of the abdomen and pelvis was obtained. There is no acute or inflammatory disease. There is no bowel obstruction noted. This was interpreted by the radiologist and was also independently reviewed by myself. Treatment and Re-Evaluation :: Patient was given IV fluids, morphine, and Zofran. Patient states her pain is somewhat improved on reevaluation. Patient states she was still having some pain. Patient was advised of her findings. Patient states she has an appointment with a tile setter on August 26. Patient was instructed to follow-up with her primary care physician and tile setter. Patient was advised that she may need an endoscopy for further evaluation. This cannot be done in the emergency department. Patient was advised that she does not require admission to the hospital. Patient was given a prescription for a short course of [place]. Patient understands and is agreeable with the plan. All questions were answered. Discharge Plan Triage Chief Complaint: Abd Pain ED Provider: Aditya Stoll Dx/Rx/DC Orders Clinical Impression: Right upper quadrant abdominal pain Instructions: ED Abdominal Pain Unkn Cause Fem Prescriptions: New hydrocodone-acetaminophen [hydrocodone-acetaminophen] 5-325 mg tablet 1 tab PO Q6H PRN PRN (Reason: Pain) 3 Days Qty: 10 0RF No Action pantoprazole 40 mg tablet,delayed release (DR/EC) 40 mg PO DAILY Qty: 30 0RF dicyclomine 10 mg capsule 20 mg PO Q6H PRN (Reason: abdominal pain) Qty: 30 0RF ondansetron [ondansetron] 4 mg tablet,disintegrating 8 mg PO Q8H PRN PRN (Reason: Nausea) Qty: 20 0RF Primary Care Provider: Nicolas Colon Referrals: Nicolas Colon MD [Primary Care Provider] - 3-5 Days Disposition Disposition: Home, Self Care Discharge Date/Time: 07/31/22 17:21
--- NOTE | 2022-07-31 15:14 | CT_ITS ---
EXAM: CT ABDOMEN AND PELVIS WITHOUT INTRAVENOUS CONTRAST CLINICAL INDICATION: Pain TECHNIQUE: Helically acquired images were obtained of the abdomen and pelvis without intravenous contrast. CTDIvol = ( 14.91 ) mGy, DLP = ( 778.53 ) mGycm This CT exam was performed using one or more of the following dose reduction techniques: automated exposure control, adjustment of the mA and/or kV according to patient size, and/or use of iterative reconstruction technique. COMPARISON: July 24, 2017. FINDINGS: LOWER THORAX: Unremarkable. Lung bases are clear. No cardiomegaly. No significant pericardial effusion. ABDOMEN: LIVER: Unremarkable. Homogeneous. GALLBLADDER AND BILE DUCTS: Unremarkable. No calcified gallstones. No gallbladder distention or wall edema. No intra- or extrahepatic biliary ductal dilation. PANCREAS: Unremarkable. No focal cystic mass. SPLEEN: Unremarkable. Normal size without focal cystic or solid mass. ADRENALS: Unremarkable. No nodules. KIDNEYS AND URETERS: Unremarkable. Normal renal size and position. No hydronephrosis. STOMACH AND BOWEL: Focal metallic foreign body along the anterolateral aspect of the ascending colon. Normal appendix. No stomach or bowel distention. No focal inflammatory change. PELVIS: APPENDIX: No evidence of acute appendicitis. BLADDER: Unremarkable. REPRODUCTIVE: Unremarkable as visualized. No mass. ABDOMEN and PELVIS: INTRAPERITONEAL SPACE: Unremarkable. No ascites or other fluid collection. No free air. BONES/JOINTS: Unremarkable. No suspicious lytic or blastic abnormality. SOFT TISSUES: Unremarkable. No discrete abdominal or pelvic wall hernia. VASCULATURE: Unremarkable. Abdominal aorta is non-dilated. LYMPH NODES: Unremarkable. No enlarged lymph nodes. CT/Abdomen/Pelvis without Cont IMPRESSION: No acute or inflammatory disease or bowel obstruction. Electronically Signed: Sunil Schulz MD at 16:47 EDT ,
[2022-07-31] MEDS: 0.9% Normal Saline 1,000 ML 1000 ML IV (15:30)
[2022-07-31] MEDS: Ondansetron 4 MG/2 ML Vial IV (15:31)
[2022-07-31] MEDS: Morphine 4 MG/ML Syringe IV (15:31)
[2022-07-31 15:47] LABS: Bacteria 0 SEEN /hpf (None Seen); Mucous, Urine 0 SEEN /hpf (<or=2+); Red Blood Cells-Urine 0 SEEN /hpf (0-5)
[2022-07-31 15:49] LABS: Absolute Lymphocyte Count 1.57 X10^3/uL (0.83-4.51); Absolute Neutrophil Count 4.5 X10^3/uL (2.0-7.7); Basophil# 0.06 X10^3/uL; Basophil% 0.9 % (0-1); Eosinophil# 0.24 X10^3/uL; Eosinophils% 3.4 % (0-5); Hematocrit 39.9 % (37-47); Hemoglobin 13.2 g/dL (12.0-15.0); Lymphocyte # 1.57 X10^3/ul (0.83-4.51); Lymphocyte % 22.6 % (19-41); Mean Corp Hgb Conc 33.1 g/dL (32-36); Mean Corpuscular Hgb 26.6 pg (27.0-32.0); Mean Corpuscular Volume 80.4 fL (81-99); Mean Platelet Vol. 10.8 fl (6.2-12.0); Monocyte# 0.57 X10^3/uL; Monocyte% 8.2 % (0-10); NRBC Flagged by Analyzer 0 % (0-5); Neutrophil # 4.49 X10^3/uL (2.7-7.7); Neutrophil % 64.5 % (47-70); Platelet Count 226 K/mm3 (150-450); RBC Distribution Width CV 13.2 % (11.6-14.6); RBC Distribution Width SD 38.5 fl (35.1-43.9); Red Blood Count 4.96 M/mm3 (4.2-5.4)
[2022-07-31 15:50] LABS: Color, Urine Yellow (Yellow); Glucose, Dipstick Normal (Normal); Ketone-Dipstick Negative (Negative); Leukocyte Esterase-Dipstick 25 /ul (Negative); Nitrite-Dipstick Negative (Negative); Occult Blood-Urine 10 /ul (Negative); Protein-Dipstick Negative (Negative); Urine Bilirubin Dipstick Negative (Negative); Urine Clarity Clear (Clear); Urine Urobilinogen Normal (Normal)
[2022-07-31 16:06] LABS: ALB/GLOB Ratio 0.9 RATIO (0.9-2.4); AST(SGOT) 21 U/L (15-37); Alanine Aminotransfer ALT/SGPT 23 U/L (13-56); Albumin, Serum 3.6 g/dL (3.2-5.0); Alkaline Phosphatase 98 U/L (45-117); Anion Gap 7 (5-15); BUN 10 mg/dL (7-18); BUN/Creat Ratio 11.2 RATIO (10-20); Calcium,Total 9.5 mg/dL (8.5-10.1); Chloride 105 mmol/L (98-107); EST Glomerular Filtration Rate 71 mL/min (>60); Est Glom Filt Rate - Afr Amer 86 mL/min (>60); Estimated Creatinine Clearance 68.79 ml/min; Glucose 86 mg/dL (74-106); Lipase 25 U/L (13-75); Potassium 3.5 mmol/L (3.5-5.1); Protein, Total 7.6 g/dL (6.4-8.2); Sodium Level 140 mmol/L (136-145)
[2022-07-31 17:08] VITALS: BP 124/71; PULSE 64; RESP 16; TEMP 36.4; O2SAT 100
[2022-07-31 17:16] LABS: Squamous Epithelial Cells - UA 0-5 SEEN /hpf (5-10); White Blood Cells 0-5 SEEN /hpf (0-5)
--- NOTE | 2022-07-31 17:21 | ED.RN ---
pt. not happy we did not find anything wrong. reassured her to follow-up with pcp, and maybe karen flores pt. did not like that answer.
== END 2022-07-31 17:21 | disposition home or self-care (01) ==
PROVIDERS: Emergency Provider Emergency Medicine; PCP Internal Medicine; Visit Provider Emergency Medicine
DX: R10.11 Right upper quadrant pain (principal); R11.0 Nausea; M54.9 Dorsalgia, unspecified
CPT/HCPCS: 74176; 80053; 81001; 83690; 85025; 96361; 96374; 99283; J7030; A4216; J2405

== ENCOUNTER → 2022-08-04 | Outpatient (CLI) | payer BC, SELFPAY ==
[2022-08-04 15:57] LABS: Estradiol 39.8 pg/mL; Follicle Stimulating Hormone 80.3 mIU/mL; Thyroid Stim Hormone (TSH) 1.64 uIU/mL (0.358-3.74)
== END | disposition home or self-care (01) ==
LOC: PAVLAB 14:47
PROVIDERS: PCP Internal Medicine; Referring Provider Nurse Practitioner Women's Health; Visit Provider Nurse Practitioner Women's Health
DX: R23.2 Flushing (principal)
CPT/HCPCS: 36415; 82670; 83001; 84443

== ENCOUNTER 2023-12-22 08:29 | Emergency (ER) | payer OTHER, SELFPAY ==
[2023-12-22 08:31] VITALS: BP 114/71; PULSE 92; RESP 18; TEMP 36.6; O2SAT 98; BMI 34.9
--- NOTE | 2023-12-22 08:50 | ED.RN ---
PAIN MORE TO RT FLANK
--- NOTE | 2023-12-22 09:37 | EDS_ITS ---
HPI HPI - GI History of Present Illness Chief Complaint: Abd Pain Informant: patient Abdominal Pain/Flank Pain Onset: Days (3) Context: Gradual Onset Timing: Continuous Quality: Stabbing Location: RLQ and Right Flank Worsened by: Nothing Relieved by: Nothing Nausea/Vomiting/Emesis GI Symptom: Positive for Nausea; Negative for Vomiting Diarrhea/Melena/Hematochezia GI Symptom: Negative for Diarrhea, Melena or Hematochezia Associated Symptoms Associated Symptoms: Negative for Dysuria, Frequency or Hematuria Narrative Narrative: Patient presents with right-sided abdominal pain and right flank pain that has been getting progressively worse over the past 3 days. Patient describes the pain as stabbing. Patient states it is mainly over the right side of her abdomen. Patient states nothing makes it better and nothing makes it worse. Patient admits to some nausea but denies any vomiting. Patient denies any diarrhea, melena, or hematochezia. Patient denies any dysuria, frequency, or hematuria. Patient denies any fevers but admits to some subjective chills. PFSH PFS Medical History (Updated 12/22/23 @ 12:[address] Aditya Stoll, ) Neck pain on right side Right upper quadrant pain Contusion of left knee Sprain of left foot Left ankle sprain History of anemia Home Medications ?Medication ?Instructions ?Recorded ?Last Taken ?Type estradiol 0.05 mg/24 hr semiweekly 1 patch transdermal 2XW #8 ea 08/05/22 Unknown Rx transdermal patch (Vivelle-Dot) Allergy/AdvReac Type Severity Reaction Status Date / Time cephalexin Allergy Fever and Verified 12/22/23 08:30 skin rash Penicillins (PCN) Allergy Hives Verified 12/22/23 08:30 Family History Sister CVA (cerebral vascular accident) Thyroid disorder Depression Mother Thyroid disorder Surgical History S/P tonsillectomy S/P cholecystectomy S/P bunionectomy S/P hysterectomy (~2017) S/P lumpectomy of breast Social History household members: children number of children: 3 current occupational status: employed 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 history of recent travel: Yes out of state: Yes Smoking Status: Never smoker alcohol intake: current alcohol intake frequency: holidays/special occasions only substance use type: does not use what type of physical activity do you participate in: none seatbelt use: always do you feel safe at home: Yes additional social history: ROS ROS ED Constitutional Constitutional ED: Reports chills and subjective; Denies fever(s) Eyes Eyes: Denies blurry vision or change in vision ENT ENT ED: Denies rhinorrhea or sore throat Cardiovascular Cardiovascular: Denies chest pain or palpitations Respiratory/Chest Respiratory/Chest: Denies cough or dyspnea Gastrointestinal Gastrointestinal: Reports abdominal pain and nausea; Denies diarrhea or vomiting Genitourinary Genitourinary ED: Denies dysuria, hematuria or urinary frequency Musculoskeletal Musculoskeletal: Reports back pain; Denies neck pain Integumentary Denies abscess or rash Neurologic Neurologic: Denies headache(s) or weakness Allergic/Immunologic Allergic/Immunologic ED: Denies mouth swelling or urticaria EXAM Physical Exam Const Vital Signs: 12/22/23 08:31 12/22/23 10:29 12/22/23 12:14 Temperature 97.8 F 98.0 F Temperature Source Oral Oral Pulse Rate 92 88 85 Respiratory Rate 18 18 12 Blood Pressure 114/71 111/70 126/71 H Blood Pressure Mean 85 83 89 Pulse Ox 98 97 98 Oxygen Delivery Method Room Air Room Air Room Air Positive well nourished and well developed General Appearance ED: well developed and NAD HEENT Reports moist mucous membranes normocephalic and atraumatic Neck supple and no JVD Resp normal respiratory effort and clear to auscultation bilaterally Cardio regular rate and regular rhythm GI non-distended Palpation: soft and tender RLQ and suprapubic; Negative for guarding or rebound tenderness present Back/Spine General Back: CVA tenderness right Neuro CN's II-XII intact bilaterally, moves all extremities and no sensory deficits noted Sensorium / Orientation: alert Motor Exam: strength 5/5 throughout Psych mental status grossly normal MDM MDM MDM Narrative Medical decision making narrative: Differential diagnosis includes appendicitis, ureteral calculus, pyelonephritis, diverticulitis, urinary tract infection, pancreatitis, bowel obstruction, perforation, and colitis. CT scan of the abdomen pelvis will be obtained to assess for appendicitis, ureteral calculus, bowel obstruction, perforation, colitis, and diverticulitis. CBC will be obtained to assess for leukocytosis and anemia. Comprehensive metabolic profile will be obtained to assess for hepatic function, renal function, and electrolyte abnormality. Urinalysis will be obtained to assess for urinary tract infection and hematuria. Lipase will be obtained to assess for pancreatitis. Lab Data Attestation: I reviewed the patient's lab results. Lab results narrative: CBC was reviewed and were within normal limits. Comprehensive metabolic profile was reviewed and was within normal limits. Lipase was reviewed and was normal. Urinalysis was reviewed. There are 5-10 epithelial cells. There is no evidence of urinary tract infection or hematuria. Labs: Laboratory Results - last 24 hr 12/22/23 12/22/23 09:55 10:50 WBC 6.1 RBC 4.97 Hgb 13.1 Hct 39.7 MCV 79.9 L MCH 26.4 L MCHC 33.0 RDW Std Deviation 40.2 RDW Coeff of Keegan 13.8 Plt Count 243 MPV 10.8 Immature Gran % (Auto) 0.300 Neut % (Auto) 67.6 Lymph % (Auto) 18.6 L [place] % (Auto) 8.9 Eos % (Auto) 3.8 Baso % (Auto) 0.8 Absolute Neuts (auto) 4.1 Absolute Lymphs (auto) 1.13 Nucleated RBC % 0 Sodium 142 Potassium 4.0 Chloride 109 H Carbon Dioxide 30.0 Anion Gap 4 L BUN 13 Creatinine 0.85 Estim Creat Clear Calc 90.47 Est GFR (MDRD) Af Amer 91 Est GFR (MDRD) Non-Af 75 BUN/Creatinine Ratio 15.3 Glucose 100 Calcium 10.0 Total Bilirubin 0.30 AST 17 ALT 24 Alkaline Phosphatase 128 H Total Protein 7.5 Albumin 3.5 Globulin 4.0 Albumin/Globulin Ratio 0.9 Lipase 29 Urine Color Yellow Urine Clarity Clear Urine pH 7.0 Ur Specific [place] 1.010 Urine Protein 15 H Urine Glucose (UA) Normal Urine Ketones Negative Urine Occult Blood 10 H Urine Nitrite Negative Urine Bilirubin Negative Urine Urobilinogen Normal Ur Leukocyte Esterase 25 H Urine RBC 0 SEEN Urine WBC 0-5 SEEN Ur Squamous Epith Cells 5-10 SEEN Urine Bacteria 0 SEEN Urine Mucus 0 SEEN Radiography Diagnostic Testing: Clinical Impression(s) from Imaging Studies Abdomen/Pelvis CT 12/22/23 09:41 IMPRESSION: Large amount stool in the colon. Electronically Signed: Kya Lopez MD at 11:46 EDT , CT scan of the abdomen pelvis was obtained. There is a large amount of stool in the colon. There is no evidence of bowel obstruction or perforation. There is no evidence of appendicitis. There is no free air or free fluid. This was interpreted by the radiologist and was also independently reviewed by myself. Treatment and Re-Evaluation :: Patient was given morphine and Zofran. Patient was advised of her findings. Patient was instructed to use [id number] laxatives as needed for constipation. Patient was instructed to take Tylenol as needed for pain. Patient states she has an appoint with her chick sexer tomorrow. Patient was instructed to follow-up with this appointment. Patient was also instructed to follow-up with her primary care physician in 5 to 7 days. Patient was instructed to return if worse in any way. Patient understood and was agreeable with the plan. All questions were answered. Discharge Plan Triage Chief Complaint: Abd Pain ED Provider: Aditya Stoll Dx/Rx/DC Orders Clinical Impression: Abdominal pain, Constipation Instructions: ED Abdominal Pain Unkn Cause Fem, ED Constipation (Adult) Prescriptions: No Action estradiol [Vivelle-Dot] 0.05 mg/24 hr patch semiweekly 1 patch transdermal 2XW Qty: 8 1RF Rx Instructions: apply 1 patch for 3 days alternating with 1 patch for 4 days each week Primary Care Provider: Nicolas Colon Referrals: Nicolas Colon MD [Primary Care Provider] - 5-7 Days Print Language: Czech Disposition Disposition: Home, Self Care
--- NOTE | 2023-12-22 09:41 | CT_ITS ---
HISTORY: Abdominal pain. TECHNIQUE: Helically acquired images were obtained of the abdomen and pelvis after the intravenous administration of 100 mL Isovue-300. A radiation dose optimization technique was used for this scan. 400 images. COMPARISON: 07/31/2022. FINDINGS: LOWER CHEST: Lung bases clear. BOWEL: Small bowel and appendix nondilated. Large amount of stool throughout the colon. Chronic linear metallic foreign body or surgical clip of the ascending colonic wall. PERITONEUM: No significant ascites. LIVER: No enhancing mass. GALLBLADDER/BILIARY TREE: Absent gallbladder. SPLEEN/PANCREAS: Homogeneous and nonenlarged. ADRENAL GLANDS/KIDNEYS: Unremarkable. VESSELS: No abdominal aortic aneurysm. PELVIC ORGANS: Absent uterus. BONES: Intact. CT/Abdomen/Pelvis W IV Cont ONLY IMPRESSION: Large amount stool in the colon. Electronically Signed: Kya Lopez MD at 11:46 EDT ,
[2023-12-22 10:14] LABS: Absolute Lymphocyte Count 1.13 X10^3/uL (0.83-4.51); Absolute Neutrophil Count 4.1 X10^3/uL (2.0-7.7); Basophil# 0.05 X10^3/uL; Basophil% 0.8 % (0-1); Eosinophil# 0.23 X10^3/uL; Eosinophils% 3.8 % (0-5); Hematocrit 39.7 % (37-47); Hemoglobin 13.1 g/dL (12.0-15.0); Lymphocyte # 1.13 X10^3/ul (0.83-4.51); Lymphocyte % 18.6 % (19-41); Mean Corpuscular Hgb 26.4 pg (27.0-32.0); Mean Corpuscular Volume 79.9 fL (81-99); Mean Platelet Vol. 10.8 fl (6.2-12.0); Monocyte# 0.54 X10^3/uL; Monocyte% 8.9 % (0-10); NRBC Flagged by Analyzer 0 % (0-5); Neutrophil # 4.09 X10^3/uL (2.7-7.7); Neutrophil % 67.6 % (47-70); Platelet Count 243 K/mm3 (150-450); RBC Distribution Width CV 13.8 % (11.6-14.6); RBC Distribution Width SD 40.2 fl (35.1-43.9); Red Blood Count 4.97 M/mm3 (4.2-5.4); White Blood Count 6.1 K/mm3 (4.4-11.0)
[2023-12-22 10:29] VITALS: BP 111/70; PULSE 88; RESP 18; O2SAT 97
[2023-12-22 10:33] LABS: ALB/GLOB Ratio 0.9 RATIO (0.9-2.4); AST(SGOT) 17 U/L (15-37); Alanine Aminotransfer ALT/SGPT 24 U/L (13-56); Albumin, Serum 3.5 g/dL (3.2-5.0); Alkaline Phosphatase 128 U/L (45-117); Anion Gap 4 (5-15); BUN 13 mg/dL (7-18); BUN/Creat Ratio 15.3 RATIO (10-20); Chloride 109 mmol/L (98-107); Creatinine, Serum 0.85 mg/dL (0.55-1.02); EST Glomerular Filtration Rate 75 mL/min (>60); Est Glom Filt Rate - Afr Amer 91 mL/min (>60); Estimated Creatinine Clearance 90.47 ml/min; Glucose 100 mg/dL (74-106); Lipase 29 U/L (13-75); Protein, Total 7.5 g/dL (6.4-8.2); Sodium Level 142 mmol/L (136-145)
[2023-12-22 10:55] LABS: Bacteria 0 SEEN /hpf (None Seen); Mucous, Urine 0 SEEN /hpf (<or=2+); Red Blood Cells-Urine 0 SEEN /hpf (0-5)
[2023-12-22 11:03] LABS: Color, Urine Yellow (Yellow); Glucose, Dipstick Normal (Normal); Ketone-Dipstick Negative (Negative); Leukocyte Esterase-Dipstick 25 /ul (Negative); Nitrite-Dipstick Negative (Negative); Occult Blood-Urine 10 /ul (Negative); Protein-Dipstick 15 mg/dl (Negative); Urine Bilirubin Dipstick Negative (Negative); Urine Clarity Clear (Clear); Urine Urobilinogen Normal (Normal)
[2023-12-22 11:37] LABS: Squamous Epithelial Cells - UA 5-10 SEEN /hpf (5-10); White Blood Cells 0-5 SEEN /hpf (0-5)
[2023-12-22 12:14] VITALS: BP 126/71; PULSE 85; RESP 12; TEMP 36.7; O2SAT 98
[2023-12-22 13:19] VITALS: BP 122/80; PULSE 80; RESP 12; TEMP 36.7; O2SAT 98
--- NOTE | 2023-12-22 13:20 | ED.RN ---
This nurse was discharging this patient. She stated I can't believe I keep coming back here. I'm not even being seen for constipation. But if that makes him feel better to put that on my paperwork, then OK. You guys are the worse ER. This nurse offered the patient advocates number and she replied what good is that going to do me. I expressed my concern for her wellbeing and she said it's not your fault. I'm just going to go home. Patient walked out of the room.
== END 2023-12-22 13:28 | disposition home or self-care (01) ==
PROVIDERS: Emergency Provider Emergency Medicine; PCP Internal Medicine; Visit Provider Emergency Medicine
DX: K59.00 Constipation, unspecified (principal)
CPT/HCPCS: 74177; 80053; 81001; 83690; 85025; 96374; 96375; 99283; Q9967; A4216; J2405

== ENCOUNTER → 2023-12-23 | Outpatient (CLI) | payer OTHER, SELFPAY ==
[2023-12-23 10:14] LABS: Absolute Lymphocyte Count 1.29 X10^3/uL (0.83-4.51); Absolute Neutrophil Count 4.2 X10^3/uL (2.0-7.7); Basophil# 0.07 X10^3/uL; Basophil% 1.1 % (0-1); Eosinophil# 0.24 X10^3/uL; Eosinophils% 3.8 % (0-5); Hematocrit 37.8 % (37-47); Lymphocyte # 1.29 X10^3/ul (0.83-4.51); Lymphocyte % 20.3 % (19-41); Mean Corp Hgb Conc 34.4 g/dL (32-36); Mean Corpuscular Volume 78.6 fL (81-99); Monocyte# 0.52 X10^3/uL; Monocyte% 8.2 % (0-10); NRBC Flagged by Analyzer 0 % (0-5); Neutrophil % 66.1 % (47-70); Platelet Count 256 K/mm3 (150-450); RBC Distribution Width CV 13.6 % (11.6-14.6); RBC Distribution Width SD 39.1 fl (35.1-43.9); Red Blood Count 4.81 M/mm3 (4.2-5.4); White Blood Count 6.4 K/mm3 (4.4-11.0)
[2023-12-23 10:16] LABS: Erythrocyte Sedimentation Rate 40 mm/hr (0-30)
[2023-12-23 10:47] LABS: ALB/GLOB Ratio 0.8 RATIO (0.9-2.4); AST(SGOT) 17 U/L (15-37); Alanine Aminotransfer ALT/SGPT 22 U/L (13-56); Albumin, Serum 3.5 g/dL (3.2-5.0); Alkaline Phosphatase 126 U/L (45-117); Anion Gap 6 (5-15); BUN 16 mg/dL (7-18); BUN/Creat Ratio 17.4 RATIO (10-20); Calcium,Total 9.6 mg/dL (8.5-10.1); Chloride 106 mmol/L (98-107); Creatinine, Serum 0.92 mg/dL (0.55-1.02); EST Glomerular Filtration Rate 69 mL/min (>60); Est Glom Filt Rate - Afr Amer 83 mL/min (>60); Free T3 2.1 pg/mL (2.18-3.98); Globulin 4.2 g/dL (2.2-4.2); Glucose 103 mg/dL (74-106); LDH 206 U/L (84-246); Potassium 3.9 mmol/L (3.5-5.1); Protein, Total 7.7 g/dL (6.4-8.2); Sodium Level 139 mmol/L (136-145); T4 Free Direct 0.88 ng/dL (0.76-1.46)
[2023-12-28 12:09] LABS: Anti-Centromere B Ab 0.4 AI (0.0-0.9); Anti-Chromatin <0.2 AI (0.0-0.9); Anti-Jo <0.2 AI (0.0-0.9); Anti-Scleroderma-70 AB <0.2 AI (0.0-0.9); Anti-dsDNA Ab <1 IU/mL (0-9); Beef <0.10 kU/L (Class 0); Chocolate <0.10 kU/L (Class 0); Codfish <0.10 kU/L (Class 0); Corn <0.10 kU/L (Class 0); Egg, Whole <0.10 kU/L (Class 0); Milk (Cow) 0.16 kU/L (Class 0/I); Mussels <0.10 kU/L (Class 0); Peanut <0.10 kU/L (Class 0); Pork <0.10 kU/L (Class 0); RNP Ab 0.4 AI (0.0-0.9); SJOGREN'S Anti-SS-A test < 0.2 AI (0.0-0.9); SJOGREN'S Anti-SS-B test < 0.2 AI (0.0-0.9); Salmon <0.10 kU/L (Class 0); Shrimp <0.10 kU/L (Class 0); Smith Ab <0.2 AI (0.0-0.9); Soybean <0.10 kU/L (Class 0); Tuna <0.10 kU/L (Class 0); Wheat <0.10 kU/L (Class 0)
[2023-12-28 14:10] LABS: ACCA 12 units (0-90); ALCA 29 units (0-60); AMCA 111 units (0-100); Albumin 3.8 g/dL (2.9-4.4); Alpha-1-Globulins 0.3 g/dL (0.0-0.4); Alpha-2-Globulins 0.6 g/dL (0.4-1.0); Cytoplasmic Ab (C-ANCA) <1:20 titer (Neg:<1:20); Endomysial Antibody IgA Negative (Negative); Gamma Globulin 1.2 g/dL (0.4-1.8); Immunoglobulin A 161 mg/dL (87-352); Immunoglobulin E 81 IU/mL (6-495); Immunoglobulin G 1074 mg/dL (586-1602); Immunoglobulin M 374 mg/dL (26-217); PROEL- TOTAL PROTEIN 7.2 g/dL (6.0-8.5); Perinuclear Ab (P-ANCA) <1:20 titer (Neg:<1:20); gASCA 19 units (0-50); t-Transglutaminase IgA <2 U/mL (0-3)
== END | disposition home or self-care (01) ==
LOC: LAB 09:38
PROVIDERS: PCP Internal Medicine
DX: K58.2 Mixed irritable bowel syndrome (principal); K59.00 Constipation, unspecified
CPT/HCPCS: 36415; 80053; 82784; 82785; 83516; 83615; 84165; 84439; 84443; 84481; 85025; 85652; 86003; 86005; 86036; 86037; 86140; 86225; 86235; 86255; 86334; 86671

== ENCOUNTER → 2024-01-19 | Outpatient (CLI) | payer OTHER, SELFPAY ==
[2024-01-23 03:06] LABS: Giardia Lamblia, Stool EIA Negative (Negative); Pancreatic Elastase, Fecal > 800 (>200)
[2024-01-24 15:08] LABS: Calprotectin, Stool 209 ug/g (0-120)
== END | disposition home or self-care (01) ==
LOC: LABSPEC 14:25
PROVIDERS: PCP Internal Medicine
DX: K58.2 Mixed irritable bowel syndrome (principal); K59.00 Constipation, unspecified
CPT/HCPCS: 82653; 83630; 83993; 87329; 87506

== ENCOUNTER 2024-02-09 07:56 | Day surgery (SDC) | payer OTHER, SELFPAY ==
[2024-02-09] VITALS (7 sets, daily range): BP systolic 87–109; BP diastolic 52–71; PULSE 55–84; RESP 16; TEMP 36–36.5; O2SAT 97–100; BMI 34.6
--- NOTE | 2024-02-09 08:06 | PCM.PRE.AN2 ---
ASA Classification* ASA Classification ASA Classification: 2 Assessment & Plan Anesthesia* Anesthesia Assessment Anesthesia Assessment: Discussed sedation and/or anesthesia options, risks, benefits, and alternatives with patient/parents/legal guardian/POA. Questions invited. The patient/parents/legal guardian/POA seems to understand and agrees to proceed with anesthesia plan. Reviewed the physical assessment, medical history, allergy history and patient home medications list prior to surgery/procedure/anesthetic and documented any changes. Performed airway and anesthesia risk assessments. Anesthesia Type Anesthesia Type: MAC Anesthesia Focused Assessment* Airway Assessment Mouth opens: >3 cm Mallampati Score: II Focused Labs Anesthesia Preop lab: CBC WBC 6.4 K/mm3 (4.4-11.0) 12/23/23 09:41 RBC 4.81 M/mm3 (4.2-5.4) 12/23/23 09:41 Hgb 13.0 g/dL (12.0-15.0) 12/23/23 09:41 Hct 37.8 % (37-47) 12/23/23 09:41 Plt Count 256 K/mm3 (150-450) 12/23/23 09:41 CHEMISTRY Potassium 3.9 mmol/L (3.5-5.1) 12/23/23 09:41 Sodium 139 mmol/L (136-145) 12/23/23 09:41 BUN 16 mg/dL (7-18) 12/23/23 09:41 Creatinine 0.92 mg/dL (0.55-1.02) 12/23/23 09:41 Glucose 103 mg/dL (74-106) 12/23/23 09:41 POC Glucose 97 mg/dL (70-110) 09/30/15 22:48 TSH 1.730 uIU/mL (0.358-3.740) 12/23/23 09:41 COAG PT 12.0 SECONDS (11.7-14.9) 07/05/16 08:42 Pre-Assessment Diagnosis/Proposed Procedure Planned Operative Procedure(s): COLONOSCOPY Anesthesia History Anesthesia History - hosiery looper: Anesthesia History - hosiery looper Hx Hospitalization No 02/07/24 13:14 Any Problems With Anesthesia No 02/07/24 13:14 Cholinesterase deficiency No 02/07/24 13:14 You/Your Family Experience No 02/07/24 13:14 fever (hyperthermia) with Relationship Recent Exposure to Contagious No 07/23/16 15:40 Disease Does patient have nerve No 02/07/24 13:14 stimulator Patient instructed to have device shut off --Does patient have Pacemaker or ICD? When Was Last Pacemaker Check QUESTION #4 FULL TEXT: You/Your Family Experience fever (hyperthermia) with Anesthesia Last Oral Intake Last Oral intake: Last Oral Intake NPO since Meds taken in AM with sips of water? Meds patient instructed to take am of surgery PONV PONV - hosiery looper: PONV - hosiery looper Female Yes 02/07/24 13:14 HX of Motion Sickness Yes 02/07/24 13:14 HX of N/V After Surgery No 02/07/24 13:14 Non-Smoker Yes 02/07/24 13:14 Duration of Surgery greater No 02/07/24 13:14 than 60 minutes Number of Risk Factors 3 02/07/24 13:14 PONV Score Moderate Risk 02/07/24 13:14 Height & Weight Height & Weight: Anesthesia: Height & Weight Height 5 ft 5 in 12/22/23 08:31 Respiratory Assessment Respiratory Assessment - hosiery looper: Respiratory Tract Infection Hx - hosiery looper Hx Respiratory Tract Infection No 02/07/24 13:14 STOP Sleep Apnea STOP Sleep Apnea - hosiery looper: STOP Sleep Apnea - hosiery looper Hx Hypertension No 02/07/24 13:14 Hx Sleep Apnea No 02/07/24 13:14 CPAP BIPAP Do you snore loudly (louder No 02/07/24 13:14 than talking or can be heard Do you often feel tired/ No 02/07/24 13:14 fatigued/ sleepy during daytime? Has anyone observed you stop No 02/07/24 13:14 breathing during sleep? STOP Results Negative 02/07/24 13:14 QUESTION #5 FULL TEXT : Do you snore loudly (louder than talking or can be heard through closed doors)? 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 Specify any problems Hx of Preganancy in last 3 No 02/07/24 13:14 Months Nurse Filling Out Transfusion VCHRISTIN 02/07/24 13:14 & Questions: Date: 02/07/24 02/07/24 13:14 Time: 13:14 02/07/24 13:14 Patient unable to answer at this time (ie. confused, unrespo /Reproduction History /Reproductive History - hosiery looper: /Reproductive Hx- hosiery looper Hx Now No 02/07/24 13:14 Gestational Age (in weeks): EDC: Hx Hx Para Hx Section SAB No 02/07/24 13:14 PFSH Medical History Wears glasses Post-menopausal History of IBS History of Crohn's disease Non-smoker Neck pain on right side Right upper quadrant pain Contusion of left knee Sprain of left foot Left ankle sprain History of anemia Home Medications ?Medication ?Instructions ?Recorded ?Last Taken ?Type NK 02/07/24 Unknown History Allergy/AdvReac Type Severity Reaction Status Date / Time cephalexin Allergy Fever and Verified 02/07/24 13:09 skin rash Penicillins (PCN) Allergy Hives Verified 02/07/24 13:09 Family History Sister CVA (cerebral vascular accident) Thyroid disorder Depression Mother Thyroid disorder Surgical History S/P tonsillectomy S/P cholecystectomy S/P bunionectomy S/P hysterectomy (~2017) S/P lumpectomy of breast Social History household members: children number of children: 3 current occupational status: employed 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
--- NOTE | 2024-02-09 08:09 | HP.PCM_ITS ---
History and Physical Date of Admission: 02/09/24 Chief Complaint: STOMACH PAIN e.r. f/u Details: ALBERTINA WIN, is a 48 F who presents to the office today for establishment with [facility] [place] for complaints of right-sided abdominal pain, rated 6/10, with severe nausea brought on by eating for the last year. She denies difficulty chewing and swallowing, heartburn, reflux, vomiting. She reports abdominal bloating, cramping, pain, and urgency at times with diarrhea. She reports that she has a son with CF and is familiar with bowel clean out protocol but she wanted to be sure nothing else was wrong with her stomach before doing this. She denies fever, chills, and change in water supply. 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 She states that she has been eating a very bland diet to try to alleviate her symptoms. She prefers to not just take medicines for symptoms without knowing why the symptoms are there. She reports incomplete evacuation, has been seeing hematochezia, blood from within the stool, not laced around it. She denies melena and blood while wiping. She reports that her last colonoscopy was about 10 years ago to investigate LLQ abdominal pain. ROS Const Constitutional: Positive for fatigue; No chills or fever(s) Eyes Eyes: No change in vision ENT ENT: No abnormal hearing Resp Respiratory: No cough Cardio Cardiology: No chest pain at rest, chest pain with exertion or leg pain with exertion Gastro GI: Positive for abdominal pain, bloating, change in bowel habits, constipation, heartburn, excessive flatus, Blood in stool and nausea/dyspepsia Genitourinary-Female: No difficulty urinating Musc Musculoskeletal: Positive for back pain and muscle cramps; No leg pain with exertion Skin Skin: Positive for itchy eyes; No yellowing of the eye Neuro Neurology: No abnormal hearing Endo Endocrine: Positive for fatigue Aller/Imm Allergy/Immunologic: Positive for itchy eyes; No food intolerance Cristiano/Lymp Hematologic/Lymphatic: No easy bleeding or easy bruising Exam Const General: cooperative, healthy appearing, comfortable and no acute distress Nutritional Appearance: overweight Orientation: alert [facility] Head: normal to inspection Ears: hearing grossly normal bilaterally Nose: external nose normal Face and sinus: normal facial exam and face symmetric Eyes General: appearance normal, both eyes and all related structures Sclera: sclerae normal Neck Neck: normal visual inspection and full ROM Neck mass: No Chest Chest palpation & inspection: normal inspection of the chest Resp Effort & Inspection: normal respiratory effort, able to speak in complete sentences and symmetric chest movement GI Inspection: distended Skin General: no rashes or lesions noted Neuro General: patient alert, patient awake, patient oriented x3 and moves all extremities Cognition: normal cognition Speech: speech normal Gait: normal gait Extrem General: full ROM Psych Appearance: well kempt Mental Status: mental status grossly normal Mood: congruent mood Affect: normal affect Speech and Movement: speech and movement normal Attitude: cooperative Thought Process: normal Assessment and Plan Assessment and Plan (1) Irritable bowel syndrome with mixed bowel habits: Status: Acute Plan: ALBERTINA WIN, is a 48 F who presents to the office today for establishment with [facility] [place] for complaints of right-sided abdominal pain, rated 6/10, with severe nausea brought on by eating for the last year. Differential diagnoses include: IBS-C, IBS-M, IBD, CIC, colonic dysmotility, gastric dysmotility. Discussed plan with her. * blood for IBS/D, inflammatory, thyroid, food allergy * stool for inflammatory, enzyme, enteric markers * colonoscopy to investigate hematochezia * GET after the new year * bowel prep instructions now * call with results * office follow-up 3 months(2) Abdominal pain: Status: Acute Qualifiers: Abdominal location: generalized Qualified Code(s): R10.84 - Generalized abdominal pain (3) Constipation: Status: Acute Qualifiers: Constipation type: unspecified constipation type Qualified Code(s): K59.00 - Constipation, unspecified Orders: Orders Allergen, Food Profile 14 Today K58.2 - Mixed irritable bowel syndrome, K59.00 - Constipation, unspecified CRP Today K58.2 - Mixed irritable bowel syndrome, K59.00 - Constipation, unspecified Immunoglobulins G/A/M/E Today K58.2 - Mixed irritable bowel syndrome, K59.00 - Constipation, unspecified MERRICK Comprehensive Panel Today K58.2 - Mixed irritable bowel syndrome, K59.00 - Constipation, unspecified ENTERIC PATHOGEN PANEL STOOL Today K58.2 - Mixed irritable bowel syndrome, K59.00 - Constipation, unspecified LDH Today K58.2 - Mixed irritable bowel syndrome, K59.00 - Constipation, unspecified ANCA Today K58.2 - Mixed irritable bowel syndrome, K59.00 - Constipation, unspecified Erythrocyte Sed Rate Today K58.2 - Mixed irritable bowel syndrome, K59.00 - Constipation, unspecified Calprotectin, Stool Today K58.2 - Mixed irritable bowel syndrome, K59.00 - Constipation, unspecified Free T3 Today K58.2 - Mixed irritable bowel syndrome, K59.00 - Constipation, unspecified Pancreatic Elastase, Fecal Today K58.2 - Mixed irritable bowel syndrome, K59.00 - Constipation, unspecified CBC W/Diff, Automated Today K58.2 - Mixed irritable bowel syndrome, K59.00 - Constipation, unspecified Giardia Lamblia, Stool EIA Today K58.2 - Mixed irritable bowel syndrome, K59.00 - Constipation, unspecified Stool Lactoferrin/WBC Today K58.2 - Mixed irritable bowel syndrome, K59.00 - Constipation, unspecified IBD Expanded Profile Today K58.2 - Mixed irritable bowel syndrome, K59.00 - Constipation, unspecified T4 Free Direct Today K58.2 - Mixed irritable bowel syndrome, K59.00 - Constipation, unspecified Celiac Disease Profile Today K58.2 - Mixed irritable bowel syndrome, K59.00 - Constipation, unspecified ÓSCAR + Protein Elect, Serum Today K58.2 - Mixed irritable bowel syndrome, K59.00 - Constipation, unspecified Thyroid Stim Hormone (TSH) Today K58.2 - Mixed irritable bowel syndrome, K59.00 - Constipation, unspecified Comprehensive Metabolic Profil Today K58.2 - Mixed irritable bowel syndrome, K59.00 - Constipation, unspecified I have examined the patient and the H&P has been reviewed. There are no clinical changes since date of exam.
--- NOTE | 2024-02-09 09:00 | COLBX_PTH ---
PATIENT: ALBERTINA WIN LOC: EN U#:[id number] AGE/SX: 48/F ROOM: RE02/09/[address]: Dr. Hansel Huff DO : 1975 BED: DIS: 02/09/2024 SPEC #: [id number] RECD: 02/09/24 11:38 STATUS: BETH DEREK #: [id number] YARELIS: 02/09/24 09:[address]: Hansel Huff DEPT: SURGICAL PATHOLOGY RECD BY: Crystal Buck ENTERED: 02/09/24 12:25 SP TYPE: COLON BX ADRIANO DR: Dr. Nicolas Colon MD Tissues: Cecum, NOS Procedures: Surgery Specimen Level IV HEADER OPERATION: Colonoscopy PRE-OP DIAGNOSIS: Irritable bowel syndrome with mixed bowel habits TISSUE SUBMITTED: Cecal polyp biopsy MICROSCOPIC DIAGNOSIS Cecal polyp, biopsy: Active colitis. See comment. Moon 02/10/2024 COMMENT There is focal cryptitis and crypt abscess. No significant glandular distortion is seen and no transmural inflammation is present. No granulomas are identified. Eosinophils are mildly increased in the mucosa. The significance of this is unclear. Clinical correlation is suggested. MICROSCOPIC DESCRIPTION Slides are reviewed. GROSS DESCRIPTION Received in fixative is one container labeled with the patient's name and designated Cecal polyp biopsy. The specimen consists of two irregular fragments of light cole soft tissue that in aggregate measure 0.8 x 0.3 x 0.1 cm. The specimen is totally submitted in one cassette. 02/09/2024 TC:2 CPT:43902
--- NOTE | 2024-02-09 09:36 | OP.CCLET_ITS ---
02/09/2024 Nicolas Colon MD [address] [place] [address] [place] [address] Re : Colonoscopy procedure for Ruthienoah Valdez Dear Dr. Colon This procedure was performed on February. My impressions and recommendations are as follows: Impressions : - One 6 mm polyp in the cecum, removed with a jumbo cold forceps. Resected and retrieved. - Diverticulosis in the recto-sigmoid colon. - The examination was otherwise normal on direct and retroflexion views. Recommendations : - Discharge patient to home. - Resume previous diet. - Continue present medications. - Await pathology results. - Repeat colonoscopy in 5 years for surveillance. My findings are described in the full procedure note, which is enclosed. If I can be of further assistance, please feel free to contact me at . Sincerely, Hansel Friend, 02/09/2024 9:35:56 AM This report has been signed electronically.
--- NOTE | 2024-02-09 09:36 | OP.COLON_ITS ---
Patient Name: Ruthie Corado Procedure Date: 02/09/2024 9:05 AM Date of : 1975 Age: 48 Procedure: Colonoscopy Indications: Screening for colorectal malignant neoplasm Providers: Hansel Huff DO Referring MD: Nicolas Colon MD Medicines: Monitored Anesthesia Care Patient Profile: This is a 48 year old female. Refer to note in patient chart for documentation of history and physical. Last Colonoscopy: several years ago. Complications: No immediate complications. Procedure: Pre-Anesthesia Assessment: - Prior to the procedure, a History and Physical was performed, and patient medications and allergies were reviewed. The patient is competent. The risks and benefits of the procedure and the sedation options and risks were discussed with the patient. All questions were answered and informed consent was obtained. Patient identification and proposed procedure were verified by the physician in the pre-procedure area. Mental Status Examination: alert and oriented. Airway Examination: normal oropharyngeal airway and neck mobility. Respiratory Examination: clear to auscultation. CV Examination: normal. Prophylactic Antibiotics: The patient does not require prophylactic antibiotics. Prior Anticoagulants: The patient has taken no anticoagulant or antiplatelet agents except for NSAID medication. ASA Grade Assessment: II - A patient with mild systemic disease. After reviewing the risks and benefits, the patient was deemed in satisfactory condition to undergo the procedure. The anesthesia plan was to use monitored anesthesia care (MAC). Immediately prior to administration of medications, the patient was re-assessed for adequacy to receive sedatives. The heart rate, respiratory rate, oxygen saturations, blood pressure, adequacy of pulmonary ventilation, and response to care were monitored throughout the procedure. The physical status of the patient was re-assessed after the procedure. After I obtained informed consent, the scope was passed under direct vision. Throughout the procedure, the patient's blood pressure, pulse, and oxygen saturations were monitored continuously. The Colonoscope was introduced through the anus and advanced to the terminal ileum. The colonoscopy was performed without difficulty. The patient tolerated the procedure well. The quality of the bowel preparation was adequate. The terminal ileum, ileocecal valve, appendiceal orifice, and rectum were photographed. Scope In: 9:14:49 AM Scope Withdrawal Time 0 hours 11 minutes 41 seconds Scope Out: 9:31:17 AM Total Procedure Duration Time 0 hours 16 minutes 28 seconds Findings: The perianal and digital rectal examinations were normal. A 6 mm polyp was found in the cecum. The polyp was sessile. The polyp was removed with a jumbo cold forceps. Resection and retrieval were complete. Verification of patient identification for the specimen was done. Estimated blood loss was minimal. A few small-mouthed diverticula were found in the recto-sigmoid colon. The exam was otherwise without abnormality on direct and retroflexion views. Impression: - One 6 mm polyp in the cecum, removed with a jumbo cold forceps. Resected and retrieved. - Diverticulosis in the recto-sigmoid colon. - The examination was otherwise normal on direct and retroflexion views. Recommendation: - Discharge patient to home. - Resume previous diet. - Continue present medications. - Await pathology results. - Repeat colonoscopy in 5 years for surveillance. Procedure Code(s): --- Professional --- 99037, Colonoscopy, flexible; with biopsy, single or multiple CPT copyright 2021 [employer]. All rights reserved. The codes documented in this report are preliminary and upon radio artist review may be revised to meet current compliance requirements. Hansel Huff DO 02/09/2024 9:35:56 AM This report has been signed electronically. Number of Addenda: 0 Note Initiated On: 02/09/2024 9:05 AM
--- NOTE | 2024-02-09 09:43 | PCM.POST.ANE ---
Anesthesia: Postop Eval I Current Vital Signs Temperature: 97 F Pulse Rate: 64 Blood Pressure: 94/53 Respiratory Rate: 16 Pulse Ox: 100 Oxygen Delivery Method: Room Air Assessment Airway patent: Yes Spontaneous unlabored respirations: Yes Mental status: Asleep nausea: No Vomiting: No Anesthesia Complication: No Fluid Hydration Crystalloid volume administer (ml): 60 Total IV fluid infused: 60 Progress Note Anesthesia document: Postop Eval 1 completed: Yes
--- NOTE | 2024-02-10 07:46 | PCM.POSTANE2 ---
Anesthesia Postop Eval I Sum Postop Eval Completion status Anesthesia document: Postop Eval 1 completed: Yes Anesthesia Postop Eval I Summary Anesthesia Postop Eval I Summary: Anesthesia Postop Eval I: Assessment Summary Airway patent Yes 02/09/24 09:44 [email or web address] Spontaneous unlabored Yes 02/09/24 09:44 [email or web address] respirations Mental status Asleep 02/09/24 09:44 [email or web address] nausea No 02/09/24 09:44 [email or web address] Vomiting No 02/09/24 09:44 [email or web address] Anesthesia Postop Eval I: Fluid Summary Crystalloid volume administer 60 02/09/24 09:44 [email or web address] (ml) Colloids volume administered ( ml) Blood Product volume administered (ml) Total IV fluid infused 60 02/09/24 09:44 [email or web address] Anesthesia Postop Eval I: Summary Notes Anesthesia Complication No 02/09/24 09:44 [email or web address] Anesthesia Complication Comment: Post-operative progress note Anesthesia: Postop Eval II Evaluation Mental status: Awake Pain Level: 0 nausea: No Vomiting: No
== END 2024-02-09 10:29 | disposition home or self-care (01) ==
LOC: EN 07:56 → AC 07:57
PROVIDERS: PCP Internal Medicine; Referring Provider Internal Medicine; Visit Provider Internal Medicine Gastroenterology
PROC: 0DJD8ZZ Inspection of Lower Intestinal Tract, Via Natural or Artificial Opening Endoscopic (ICD-10-PCS; CPT 45378; principal; 2024-02-09 08:55)
DX: Z12.11 Encounter for screening for malignant neoplasm of colon (principal); K58.2 Mixed irritable bowel syndrome; K57.30 Diverticulosis of large intestine without perforation or abscess without bleeding; Z90.49 Acquired absence of other specified parts of digestive tract
CPT/HCPCS: 45380; 88305; A4216; J2405

== ENCOUNTER → 2024-03-09 | Outpatient (CLI) | payer OTHER, SELFPAY ==
[2024-03-09 09:27] LABS: CRP 3.18 mg/L (0.0-3.0)
[2024-03-09 09:52] LABS: Erythrocyte Sedimentation Rate 26 mm/hr (0-30)
[2024-03-13 16:08] LABS: Angiotensin Convert Enzyme 45 U/L (14-82)
== END | disposition home or self-care (01) ==
LOC: LAB 08:22
PROVIDERS: PCP Internal Medicine; Referring Provider Internal Medicine Gastroenterology; Visit Provider Internal Medicine Gastroenterology
DX: K50.90 Crohn's disease, unspecified, without complications (principal)
CPT/HCPCS: 82164; 85652; 86140

== ENCOUNTER → 2024-04-26 | Outpatient (CLI) | payer OTHER, SELFPAY ==
--- NOTE | 2024-04-26 10:10 | MRI_ITS ---
EXAM: Abdominal/pelvic MRI without and with intravenous contrast (MR enterography.). CLINICAL HISTORY: Crohn's disease, without complications. Abdominal pain. COMPARISON: CT abdomen/pelvis 12/22/2023 TECHNIQUE: Multiplanar, multisequence MRI images of the abdomen and pelvis were obtained without and with intravenous contrast. 19 cc Clariscan IV contrast was administered. FINDINGS: Bones of the abdomen/pelvis are unremarkable. Heart is not enlarged. No sizable pericardial effusion. Lower lungs grossly clear. The abdominal aorta is normal in caliber. No abdominal/pelvic adenopathy or ascites. Included lower breast tissue grossly on remarkable. No focal abnormality of the urinary bladder. The uterus is absent. No adnexal mass. No large abdominal wall defect. Moderate amount of fluid signal in the stomach. The gallbladder appears to be absent. No gross dilation of the biliary tree. The adrenal glands, spleen, and pancreas show no specific abnormality. The portal vein is patent. The kidneys are symmetric in signal and morphology. There are tiny nonenhancing probable cysts of both kidneys, the largest posteriorly on the left measuring 12 mm. On postcontrast images, no enhancing solid renal mass or obstructive uropathy. No abnormally dilated bowel segments. There is a moderate amount of stool in the colon. No gross bowel wall thickening or mesenteric inflammatory changes. No gross omental mass. MRI/Enterography Abd/Pel IMPRESSION: No definite acute findings in the abdomen/pelvis. No significant bowel wall th ickening or mesenteric inflammatory changes. Solid organs of the abdomen are unremarkable except for a few small bilateral r enal cysts, the largest on the left at 12 mm. The gallbladder appears to be absent. No significant dilation of the biliary t ree. Reading [facility]
[2024-04-26 10:48] VITALS: BP 134/71; PULSE 78; RESP 16; O2SAT 95; BMI 34.7
[2024-04-26] MEDS: Glucagon 1 MG/ML Syringe IV (12:11)
[2024-04-26] MEDS: 0.9% Saline Lock 10 ML Syringe IV (12:12)
[2024-04-26 12:23] VITALS: BP 133/71; PULSE 79; RESP 16; O2SAT 97
== END | disposition home or self-care (01) ==
LOC: MRI 10:02
PROVIDERS: PCP Internal Medicine; Referring Provider Internal Medicine Gastroenterology; Visit Provider Internal Medicine Gastroenterology
DX: K50.90 Crohn's disease, unspecified, without complications (principal)
CPT/HCPCS: 74183; 96374; A9575; A4216; J1610

== ENCOUNTER 2025-01-16 17:39 | Emergency (ER) | payer OTHER, SELFPAY ==
[2025-01-16 17:40] VITALS: BP 142/72; PULSE 76; RESP 18; TEMP 36.1; O2SAT 98; BMI 35.6
--- NOTE | 2025-01-16 20:20 | ED.RN ---
left without being seen
--- OUTSIDE RECORDS SUMMARY | 2025-01-16 20:24 | XMS RPT_ITS | CCD ---
Author Organization [facility] Care Team Providers Care Welder/Fitter Name Role Phone Unavailable Primary Care Provider Unavailjigna Colon MD, Efewongbe B Primary Care Provider 1(06 [phone]) Isaiah PORTER, Nicolas B Primary Care Provider 1(06 03) Unavailable Primary Care Provider Unavailabl e Oleghe, Efewongbe Primary Care Unavailable Olamide Fisher Attending Unavailable Oleghe, Efewongbe Referring Unavailable Oleghe, Efewongbe Referring Unavailable Oleghe, Efewongbe Primary Care Unavailable Friend, Hansel Attending Unavailable Friend, Hansel Consulting Unavailable Fisher, Olamide Referring Unavailable Oleghe, Efewongbe Primary Care Unavailable Olamide Fisher Attending Unavailable Oleghe, Efewongbe Primary Care Unavailable Aditya Stoll Attending Unavailable Oleghe, Efewongbe Primary Care Unavailable Friend, Hansel Attending Unavailable Friend, Hansel Referring Unavailable Oleghe, Efewongbe Primary Care Unavailable Friend, Hansel Attending Unavailable Friend, Hansel Referring Unavailable Fisher, Olamide Attending Unavailable Fisher, Olamide Referring Unavailable Oleghe, Efewongbe Primary Care Unavailable Oleghe, Efewongbe Referring Unavailable Oleghe, Efewongbe Primary Care Unavailable Friend, Hansel Attending Unavailable Oleghe, Efewongbe Referring Unavailable Oleghe, Efewongbe Primary Care Unavailable Friend, Hansel Attending Unavailable Oleghe, Efewongbe Referring Unavailable Oleghe, Efewongbe Primary Care Unavailable Rosalio Byers Attending Unavailable OLEGHE, EFEWONGBE B Primary Care Unavailable JOCELINE SIMONS Attending Unavailable Allergies Allergy Classification Reported Allergen(s) Allergy Type Date of Onset Reaction(s) Facility (10 sources) Penicillins; Translations: [PENICILLINS] Propensity to adverse reactions 01-28-20 05 Hives [facility] Work Phone: (9 sources) Sulfamethoxazole / Trimethoprim; Translations: [SULFAMETHOXAZOLE-TR IMETHOPRIM] Drug Allergy 11-30-19 22 Intolerance [facility] Work Phone: (1 source) Cephalexin Drug Allergy 05-25-19 [facility] Repository (1 source) Penicillins Drug allergy (disorder) 05-25-19 [facility] Repository Medications Current Medications Medication Drug Class(es) Dates Sig (Normalized) Sig (Original) cephalexin 500 mg oral capsule (2 sources) Cephalosporin Antibacterial Start: 11-29-2021 End: 12-09-2021 take 1 capsule by mouth three times daily cephALEXin (KEFLEX) 500 mg capsule Indications: Hordeolum externum of left upper eyelid Take 1 capsule by mouth three times daily for 10 days. 30 capsule 0 11/29/2021 12/09/2021 Active Comment on above: Take [address] [facility] three times daily for 10 days. dexamethasone 0.001 mg/mg / neomycin 0.0035 mg/mg / polymyxin b 10 unt/mg ophthalmic ointment (2 sources) Aminoglycoside Antibacterial, Polymyxin-class Antibacterial, Corticosteroid Start: 12-07-2021 End: 12-17-2021 neomycin/polymyxi n b/dexametha(MAXIT ROL 3.5 MG/G-10,000 UNIT/G-0.1 % EYE OINTMENT) Use 1 application in the left eye twice daily for 10 days. 3.5 g 0 12/07/2021 12/17/2021 Active Comment on above: Use 1 application in the left eye twice daily for 10 days. Completed/Discontinued Medications Medication Drug Class(es) Dates Sig (Normalized) Sig (Original) methylPREDNISolone (1 source) Corticosteroid Start: 8 End: 2 methylPREDNISolone (MEDROL, ALVARADO,) 4 mg Dose-Pack Take as directed 1 Package 04/05/2017 05/12/2021 Discontinued (Course of therapy completed) omeprazole 40 mg delayed release oral capsule (3 sources) Proton Pump Inhibitor Start: 3 End: 3 take 1 capsule by mouth once daily omeprazole (PRILOSEC) 40 mg capsule Take 1 capsule by mouth once daily. 30 capsule 0 02/04/2023 Active Comment on above: Take 1 capsule by mo ut once daily. Problems Active Problems Problem Classification Problem Date Documented Da te Episodic/Chronic Disorders of lipid metabolism (9 sources) Hyperlipidemia; Translations: [Hyperlipidemia, unspecified] Onset: 07-05-2007 07-29-2007 Chronic Disorders of teeth and jaw (1 source) Periapical abscess without sinus; Translations: [Tooth infection] Onset: 01-01-2025 Episodic Inflammation; infection of eye (except that caused by tuberculosis or sexually transmitteddisease) (3 sources) Hordeolum externum of upper eyelid of left eye; Translations: [Hordeolum externum left upper eyelid] Episodic Other gastrointestinal disorders (1 source) Mixed irritable bowel syndrome; Translations: [Mixed irritable bowel syndrome] Onset: 02-18-2024 Chronic Other gastrointestinal disorders (1 source) Heartburn; Translations: [Heartburn] 02-03-2023 Episodic Other screening for suspected conditions (not mental disorders or infectious disease) (1 source) Encounter for screening for malignant neoplasm of colon; Translations: [Encounter for screening for malignant neoplasm of colon] Onset: 03-14-2024 Episodic Regional enteritis and ulcerative colitis (1 source) Crohn's disease, unspecified, without complications; Translations: [Crohn's disease, unspecified, without complications] Onset: 05-08-2024 Chronic Skin and subcutaneous tissue infections (1 source) Preseptal cellulitis; Translations: [Periorbital cellulitis] Episodic Past or Other Problems Problem Classification Problem Date Documented Da te Episodic/Chronic Abdominal pain (3 sources) Right upper quadrant pain; Translations: [Right upper quadrant pain] Onset: 01-12-2024 Episodic Anxiety disorders (1 source) Anxiety state; Translations: [Generalized anxiety disorder] Onset: 07-05-2007 Resolved: 02-17-2016 02-17-2016 Chronic Biliary tract disease (1 source) Chronic cholecystitis with calculus; Translations: [Calculus of gallbladder with chronic cholecystitis without obstruction] Onset: 06-06-2012 Resolved: 02-17-2016 02-17-2016 Episodic Menstrual disorders (2 sources) Excessive and frequent menstruation; Translations: [Excessive and frequent menstruation with regular cycle] Onset: 06-03-2008 Resolved: 02-02-2012 02-02-2012 Chronic Other female genital disorders (1 source) Abnormal uterine bleeding; Translations: [Abnormal uterine and vaginal bleeding, unspecified] Onset: 02-02-2012 Resolved: 07-20-2016 07-20-2016 Chronic Other female genital disorders (1 source) Female genital organ symptoms; Translations: [Unspecified condition associated with female genital organs and menstrual cycle] Onset: 06-03-2008 Resolved: 02-02-2012 02-02-2012 Episodic Other gastrointestinal disorders (1 source) Constipation, unspecified; Translations: [Constipation, unspecified] Onset: 12-23-2023 Episodic Spondylosis; intervertebral disc disorders; other back problems (1 source) Brachial neuritis; Translations: [Radiculopathy, cervical region] Onset: 05-27-2008 Resolved: 02-17-2016 02-17-2016 Episodic Results Test Name Value Interpretation Reference Range Facility [facility] 01-01-2025 CNOV Office Visit ([facility]) RUTHIE CORADO ([id number]) 1975 F Date Time Provider Department 01/01/25 11:00 AM JOCELINE SIMONS During your visit today, we recorded the following information about you: Temperature Pulse Respiration Blood pressure 96.9 degrees 80/minute 16/minute 122/76 Weight 97.6 kg Joceline Simons APRN.CNP 01/01/2025 11:22 AM Signed [facility] Subjective Ruthie Garcia Mickie is a 49 year old female. Patient presents with: Facial Swelling: left side facial swelling x 1 week, broken tooth low left HPI The patient is a 49-year-old female with Crohn's disease presenting with progressive facial swelling. The patient reports that the swelling began last week in the lower face and has since spread across the face. She describes a tingling sensation across the face but denies fever. She does not have a regular dentist and has been unable to find one who accepts her [employer] insurance. She was diagnosed with Crohn's disease within the past year and has not noticed any antibiotic-related flares. She reports allergies to penicillin and Bactrim, and possible intolerance to cephalexin, which caused fever and emesis on two separate occasions 1-2 years ago. Review of Systems Constitutional: (-) fever Head: (+) facial swelling Neurological: (+) facial tingling Psychiatric: (+) dental anxiety PAST MEDICAL HISTORY Diagnosis Date Esophagitis 01/2023 Leiomyoma of uterus, unspecified Peptic ulcer disease 01/2023 PMH - PAST MEDICAL HISTORY OF resp. issues with activity PAST SURGICAL HISTORY Procedure Laterality Date ABDOMINAL SURGERY HX COLONOSCOPY FLX DX W/COLLJ SPEC WHEN PFRMD 02/21/2012 Colonoscopy ESOPHAGOGASTRODUODENO SCOPY TRANSORAL DIAGNOSTIC 01/[address] Perez EXC CYST/ABERRANT BREAST TISSUE OPEN 1/> LESION 04/28/2006 LEFT BREAST MASS X 2 LAPAROSCOPY SURG CHOLECYSTECTOMY 05/16/2012 LIG/TRNSXJ FLP TUBE ABDL/VAG APPR UNI/BI 04/28/2006 Tubal ligation PAST SURGICAL HISTORY OF 1987,1993- BUNIONECTOMY PAST SURGICAL HISTORY OF 1990 RT. BREAST LUMPECTOMY SALPINGECTOMY Bilateral 07/08/2016 TONSILLECTOMY PRIMARY/SECONDARY Tonsillectomy VAGINAL HYSTERECTOMY UTERUS 250 GM/< 07/08/2016 ALLERGIES Bactrim [Sulfamethoxazole-Tri methoprim] and Penicillins MEDICATIONS clindamycin (CLEOCIN) 150 mg capsule Take 3 capsules by mouth three times a day for 5 days. omeprazole (PRILOSEC) 40 mg capsule Take 1 capsule by mouth once daily. (Patient not taking: Reported on 01/01/2025) FAMILY HISTORY Problem Relation Age of Onset Thyroid Mother Hyster for fibroids at 32 Heart Father Hypertension Father SOCIAL HISTORY[1] Objective BP 122/76 Pulse 80 Temp 36.1 ?C (96.9 ?F) Resp 16 Wt 97.6 kg (215 lb 2.7 oz) LMP (LMP Unknown) SpO2 99% BMI 35.81 kg/m? Physical Exam Constitutional: General: She is not in acute distress. Appearance: Normal appearance. She is normal weight. She is not ill-appearing or toxic-appearing. HENT: Head: Normocephalic and atraumatic. No right periorbital erythema. Jaw: No trismus, tenderness or swelling. Salivary Glands: Right salivary gland is not diffusely enlarged or tender. Left salivary gland is not diffusely enlarged or tender. Mouth/Throat: Mouth: Mucous membranes are moist. No oral lesions. Dentition: Abnormal dentition. Dental tenderness present. No dental caries. Pharynx: Uvula midline. Tonsils: No tonsillar exudate or tonsillar abscesses. Comments: Broken 19, mild erythema surrounding the tooth Eyes: Extraocular Movements: Extraocular movements intact. Conjunctiva/sclera: Conjunctivae normal. Pupils: Pupils are equal, round, and reactive to light. Cardiovascular: Rate and Rhythm: Normal rate and regular rhythm. Pulses: Normal pulses. Heart sounds: Normal heart sounds. Lymphadenopathy: Cervical: Cervical adenopathy present. Neurological: Mental Status: She is alert. { 1. Tooth infection (K04.7) - Facial swelling and paresthesia consistent with dental infection. - Allergies to penicillin and Bactrim; prior intolerance to cephalexin (fever, emesis). - Start clindamycin; discussed increased risk of C. difficile infection. Continue tylenol and ibuprofen for pain. - Advised use of probiotics or yogurt with antibiotics. - Instructed to return if symptoms worsen or if signs of C. difficile infection develop. - No signs of deep neck infection, SUPERVISOR CEREAL or ludwigs sign angina. - Follow up with Verito BILLS for further care and management. Any neck swelling or fevers seek emergency care. and Recording using Spoke software for draft documentation of the visit was discussed with the patient/authorized practice representative; all questions welcomed and answered. Patient/authorized practice representative agreed to proceed History and Record Review External record(s) reviewed: prior outpatient safia (more content not included)... Normal [facility] Urgent Care Visit Reporton 0 05-24-2024 Urgent Care Visit Report [facility] [address], [address] [place] [address] OFFICE VISIT Date of Service: 05/24/24 MR#: [id number] Acct: [id number] Name: RUTHIE CORADO Rep #: [id number] : 1975 Provider: TONY Mittal Age/Sex: 48/F Location: [facility] Status: Signed Intake Vital Signs 04/26/24 10:48 05/24/24 11:21 Height 5 ft 5 in BP 102/58 L Blood Pressure Location Lt brachial Position Sitting Respiration 15 Pulse 66 Pulse Source NIBP Temp 98.0 F Temp Source Oral Pulse Oximetry (%) 98 Oxygen Delivery Method room air Intake Visit Reasons: Cough Chief Complaint: cough, ears plugged Furnace Brazer Required: No Is patient in pain?: No Allergies cephalexin Allergy (Verified 05/24/24 11:22) Fever and skin rash Penicillins (PCN) Allergy (Verified 05/24/24 11:22) Hives Is last menstrual period known: No Post menopausal: No Patient : No Have you fallen in the past year?: No Nurse's Note: productive cough, ears plugged x 1 week without resolve. negative home covid test approx 5 days ago. 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 Patient denies hemoptysis, shortness of breath or difficulty breathing. No fever, chills or sweats. No nausea, vomiting, diarrhea. No loss of taste or smell. No other associated symptoms or alleviating/aggravati ng factors. ROS Const Constitutional: Positive for other (6 system ROS completed with pertinent findings in the HPI otherwise normal.) Exam Const General: cooperative and well developed HENMT Head: normal to inspection and atraumatic Ears: hearing grossly normal bilaterally Nose: nasal discharge clear Face and sinus: normal facial exam Mouth: oral mucosae normal Throat: abnormal tonsil bilaterally hypertrophy 1+ Resp Effort Inspection: normal respiratory effort and no audible wheezes Auscultation: Bilateral: Clear to Auscultation Cardio Palpation: normal PMI Rate: regular rate Rhythm: regular rhythm Neuro General: patient alert and CN's II-XI intact bilaterally Psych Appearance: grossly normal Mental Status: mental status grossly normal Coding Level of Care Code Off vis,est,level 3 Diagnoses Acute bronchitis J20.9 Assessment and Plan Assessment and Plan (1) Acute bronchitis: Status: Acute Medications: New azithromycin take 500 mg today (day 1), then 250 mg for 4 days (days 2-5) PO 6 tabs 0RF ipratropium bromide administer into each nostril 2 sprays intranasal BID-TID PRN 30 mL 0RF postnasal drainage Plan Azithromycin and Atrovent as prescribed today. Encouraged to get plenty of rest, drink lots of clear liquids, and use Tylenol or Ibuprofen (unless contraindicated) for fever and comfort. Patient also educated on other symptomatic management techniques. To be seen in 7-10 days if no improvement; sooner if worsening of symptoms. Patient advised of potential red flags and when appropriate to report to the ED. Patient verbalized understanding and agreement with all the above. Clinical Quality Measures Falls Risk Screening/Assistive Devices Have you fallen in the past year?: No 05/24/24 1526 Date Rosalio JIMENEZ Coshillary Signature: Date (if applicable) CC: Normal [facility] Enterography Abd/[place] 04-26 Enterography Abd/Pel [facility] Imaging Services [address] [place], [place] [address] Enterography Abd/Pel MR#: [id number] Acct: [id number] Name: RUTHIE CORADO Rep #: [id number] : 1975 F 48 From: Manuel Moses i DO PCP: Dr. Nicolas Colon MD Status: REG CLI Study: Enterography Abd/Pel Date of Exam: 04/26/24 Exam# [id number] Ordering Dr: Hansel Huff DO EXAM: Abdominal/pelvic MRI without and with intravenous contrast (MR enterography.). CLINICAL HISTORY: Crohn's disease, without complications. Abdominal pain. COMPARISON: CT abdomen/pelvis 12/22/2023 TECHNIQUE: Multiplanar, multisequence MRI images of the abdomen and pelvis were obtained without and with intravenous contrast. 19 cc Clariscan IV contrast was administered. FINDINGS: Bones of the abdomen/pelvis are unremarkable. Heart is not enlarged. No sizable pericardial effusion. Lower lungs grossly clear. The abdominal aorta is normal in caliber. No abdominal/pelvic adenopathy or ascites. Included lower breast tissue grossly on remarkable. No focal abnormality of the urinary bladder. The uterus is absent. No adnexal mass. No large abdominal wall defect. Moderate amount of fluid signal in the stomach. The gallbladder appears to be absent. No gross dilation of the biliary tree. The adrenal glands, spleen, and pancreas show no specific abnormality. The portal vein is patent. The kidneys are symmetric in signal and morphology. There are tiny nonenhancing probable cysts of both kidneys, the largest posteriorly on the left measuring 12 mm. On postcontrast images, no enhancing solid renal mass or obstructive uropathy. No abnormally dilated bowel segments. There is a moderate amount of stool in the colon. No gross bowel wall thickening or mesenteric inflammatory changes. No gross omental mass. MRI/Enterography Abd/Pel IMPRESSION: No definite acute findings in the abdomen/pelvis. No significant bowel wall thickening or mesenteric inflammatory changes. Solid organs of the abdomen are unremarkable except for a few small bilateral renal cysts, the largest on the left at 12 mm. The gallbladder appears to be absent. No significant dilation of the biliary tree. Reading Location: [facility] CC: Dr. Nicolas Colon MD; Hansel Huff, General Freight Agent: Signed Normal [facility] [id number] 03-17-2024 [facility]. COMMENT Normal . [facility] Comment on above: Order Comment: SERUM [id number] PANEL Result Comment: Test Ordered: [id number] Lupus Diagnostic Profile Test(s) 429161-Vpxr-Stugjid Ab by IFA (RDL); 263827- Homogeneous Pattern; 652046-Hyxjijbvf Pattern; 473838- Speckled Pattern; 493319-Mfkpaopkui Pattern; 762293- Spindle Apparatus Pattern; 709983-Xihjrme Membrane Pattern; 251694-Vxlhmkm Pattern; 184384-Olfhjql Dot Pattern; 814466- PCNA Pattern; 896635-Nzbbcymcv Pattern was developed and its performance characteristics determined by [employer]. It has not been cleared or approved by the Food and Drug Administration. Anti-Nuclear Ab by IFA (RDL) Positive [A ] ESECF Reference Range: Negative Homogeneous Pattern RESOURCING ADVISOR NOLAB Reference Range: . Nucleolar Pattern RESOURCING ADVISOR NOLAB Reference Range: . Speckled Pattern 1:320 [H ] ESECF Reference Range: <1:40 Centromere Pattern RESOURCING ADVISOR NOLAB Reference Range: . Spindle Apparatus Pattern RESOURCING ADVISOR NOLAB Reference Range: . Nuclear Membrane Pattern RESOURCING ADVISOR NOLAB Reference Range: . Midbody Pattern RESOURCING ADVISOR NOLAB Reference Range: . Nuclear Dot Pattern RESOURCING ADVISOR NOLAB Reference Range: . PCNA Pattern RESOURCING ADVISOR NOLAB Reference Range: . Centriole Pattern RESOURCING ADVISOR NOLAB Reference Range: . Note: Comment ESECF Reference Range: . MERRICK performed by Indirect Fluorescent Antibody (IFA) Test(s) 899755-Wtun-luVLF Ab by Reji(RDL) was developed and its performance characteristics determined by [employer]. It has not been cleared or approved by the Food and Drug Administration. Anti-dsDNA Ab by Reji(RDL) <8.0 IU/mL ESECF Reference Range: <8.0 Anti-Sm Ab (RDL) <20 Units ESECF Reference Range: <20 Negative: <20 Weak Positive: 20-39 Moderate Positive: 40-80 Strong Positive: >80 Anti-U1 BANANA EXPERT Ab (RDL) <20 Units ESECF Reference Range: <20 Negative: <20 Weak Positive: 20-39 Moderate Positive: 40-80 Strong Positive: >80 Anti-Ro (SS-A) Ab (RDL) <20 Units ESECF Reference Range: <20 Negative: <20 Weak Positive: 20-39 Moderate Positive: 40-80 Strong Positive: >80 Anti-La (SS-B) Ab (RDL) <20 Units ESECF Reference Range: <20 Negative: <20 Weak Positive: 20-39 Moderate Positive: 40-80 Strong Positive: >80 Anti-Chromatin Ab, IgG (RDL) <20 Units ESECF Reference Range: <20 Negative: <20 Weak Positive: 20-39 Moderate Positive: 40-80 Strong Positive: >80 C3 Complement (RDL) 145 mg/dL ESEC Reference Range: 82-167 Effective March 12, 2024, C3 Complement (RDL) reference interval will be changing to: 90 - 180 mg/dL C4 Complement (RDL) 29 mg/dL ESEC Reference Range: 14-44 Performed at: [facility] [employer] [address] [place] [id number] Paper Mill Manager: Rui Stack MD, Phone: [phone] Performed at: [facility] [employer] [id number] Paper Mill Manager: Balbir Gonzales PhD, Phone: [phone] Performed By: #### L 100.0100, L521.2450, L500.4050 #### [facility] [address] [place], [address] Angiotensin Convert Enzymeon 03-13-2024 ANGIOT-CONV.ENZ 45 U/L Normal 14-82 [facility] Comment on above: Result Comment: Perf ormed at: [address] [id number] Paper Mill Manager: Balbir Gonzales PhD, Phone: [phone] Performed By: #### L 100.0100, L501.2450, L500.4050 #### [facility] [address] [place], [address] CRPon 03-09-2024 C-REACTIVE PROT 3.18 mg/L High 0.0-3.0 [facility] Comment on above: Result Comment: C-Re active Protein (CRP) provides useful information for the diagnosis, therapy and monitoring of inflammatory processes and associated diseases. For the evaluation of Relative Risk for Cardiovascular Disease, a High Sensitivity CRP (HSCRP) should be ordered. Performed By: #### L 100.0100, L501.2450, L500.4050 #### [facility] [address] [place], [address] Erythrocyte Sed Rateon 03-09 SED RATE 26 mm/hr Normal 0-30 [facility] Comment on above: Performed By: #### L 100.0100, L501.2450, L500.4050 #### [facility] [address] [place], [address] Gastroenterology Visit Repor ton 03-09-2024 Gastroenterology Visit Report [facility] [address] [place] [address] OFFICE VISIT Date of Service: 03/09/24 MR#: [id number] Acct: [id number] Name: RUTHIE CORADO Rep #: [id number] : 1975 Provider: Hansel Huff DO Age/Sex: 48/F Location: [facility] Status: Signed Intake Vital Signs 12/22/23 08:31 02/09/24 08:11 Height 5 ft 5 in 5 ft 5 in Intake Visit Reasons: 3 M FU Allergies cephalexin Allergy (Verified 02/09/24 08:11) Fever and skin rash Penicillins (PCN) Allergy (Verified 02/09/24 08:11) Hives Medications ???Medication ???Instructions ???Recorded ???Confirmed ???Type budesonide 3 mg 6 mg (2 x 3 mg) PO QAM 90 days 02/14/24 03/09/24 Rx capsule,delayed,exten ded release #180 ea dicyclomine 20 mg tablet 20 mg PO TID PRN abdominal pain 02/14/24 03/09/24 Rx #90 tabs PFSH Medical History Wears glasses Post-menopausal History of IBS History of Crohn's disease Non-smoker Neck pain on right side Right upper quadrant pain Contusion of left knee Sprain of left foot Left ankle sprain History of anemia Surgical History S/P tonsillectomy S/P cholecystectomy S/P bunionectomy S/P hysterectomy ( 2017) S/P lumpectomy of breast Family History Sister CVA (cerebral vascular accident) Thyroid disorder Depression Mother Thyroid disorder Social History household members: children number of children: 3 current occupational status: employed current occupation: [employer] history of recent travel: Yes out of state: Yes Smoking Status: Never smoker alcohol intake: current alcohol intake frequency: holidays/special occasions only substance use type: does not use what type of physical activity do you participate in: none seatbelt use: always do you feel safe at home: Yes additional social history: HPI HPI Details: RUTHIE CORADO, is a 48 F who presents to the office today for follow up. abd/pelvis CT 12.22.23 Large amount stool in the colon. Colonoscopy 02.09.24 One 6 mm polyp in the cecum, removed with a jumbo cold forceps. Resected and retrieved. Diverticulosis in the recto-sigmoid colon. The examination was otherwise normal on direct and retroflexion views. OV 1.3.25 pt reports that after her scope two medications were sent in for her, but she did not want to start them until she was able to talk about them at her appt today. Pt reports intermittent sharp abd pain. Pt states that she has continued nausea while eating. Reports 1 bm per week and now has to use laxatives. Exam Const General: cooperative, healthy appearing, comfortable and no acute distress Nutritional Appearance: overweight Orientation: alert HENUT Head: normal to inspection Ears: hearing grossly normal bilaterally Nose: external nose normal Face and sinus: normal facial exam and face symmetric Eyes General: appearance normal, both eyes and all related structures Sclera: sclerae normal Neck Neck: normal visual inspection and full ROM Neck mass: No Chest Chest palpation inspection: normal inspection of the chest Resp Effort Inspection: normal respiratory effort, able to speak in complete sentences and symmetric chest movement GI Inspection: distended Skin General: no rashes or lesions noted Neuro General: patient alert, patient awake, patient oriented x3 and moves all extremities Cognition: normal cognition Speech: speech normal Gait: normal gait Extrem General: full ROM Psych Appearance: well kempt Mental Status: mental status grossly normal Mood: congruent mood Affect: normal affect Speech and Movement: speech and movement normal Attitude: cooperative Thought Process: normal Assessment and Plan Assessment and Plan (1) Crohn's disease: Status: Acute Plan: 48-year-old with history of irritable bowel syndrome and having recent abdominal pain associated with intermittent diarrhea. She underwent colonoscopy . Findings: The perianal and digital rectal examinations were normal. A 6 mm polyp was found in the cecum. The polyp was sessile. The polyp was removed with a jumbo cold forceps. Resection and retrieval were complete. Verification of patient identification for the specimen was done. Estimated blood loss was minimal. A few small-mouthed diverticula were found in the recto-sigmoid colon. The exam was otherwise without abnormality on direct and retroflexion views. Impression: - One 6 mm polyp in the cecum, removed with a jumbo cold forceps. Resected and retrieved. - Diverticulosis in the recto-sigmoid colon. - The examination was otherwise normal (more content not included)... Normal [facility] MR/[id number] 02-10-2024 MR/POSTOPAN2 [facility] Medical Records Department [address] [place] [address] Anesthesia Postop Eval II 02/10/24 0746 MR#: [id number] Acct: [id number] Name: RUTHIE CORADO Rep #: [id number] : 1975 48 From: Willi Aparicio MD PCP: Dr. Nicolas Colon MD Status:[facility] Y Race: AA Location: EN Anesthesia Postop Eval I Sum Postop Eval Completion status Anesthesia document: Postop Eval 1 completed: Yes Anesthesia Postop Eval I Summary Anesthesia Postop Eval I Summary: Anesthesia Postop Eval I: Assessment Summary Airway patent Yes 02/09/24 09:44 [email or web address] Spontaneous unlabored Yes 02/09/24 09:44 [email or web address] respirations Mental status Asleep 02/09/24 09:44 [email or web address] nausea No 02/09/24 09:44 [email or web address] Vomiting No 02/09/24 09:44 [email or web address] Anesthesia Postop Eval I: Fluid Summary Crystalloid volume administer 60 02/09/24 09:44 [email or web address] (ml) Colloids volume administered ( ml) Blood Product volume administered (ml) Total IV fluid infused 60 02/09/24 09:44 [email or web address] Anesthesia Postop Eval I: Summary Notes Anesthesia Complication No 02/09/24 09:44 [email or web address] Anesthesia Complication Comment: Post-operative progress note Anesthesia: Postop Eval II Evaluation Mental status: Awake Pain Level: 0 nausea: No Vomiting: No 02/10/24 0746 Date Willi Aparicio MD Cosigner Signature: Date CC: Signed Normal [facility] Colonoscopy Reporton 024 Colonoscopy Report [facility] Medical Records Department [address] [place] [address] Colonoscopy Report MR#: [id number] Acct: [id number] Name: MICKIERUTHIE Rep #: [id number] : 1975 48 From: Hansel Huff DO PCP: Dr. Nicolas Colon MD Status:[facility] Patient Name: Ruthie Corado Procedure Date: 02/09/2024 9:05 AM Date of : 1975 Age: 48 Procedure: Colonoscopy Indications: Screening for colorectal malignant neoplasm Providers: Hansel Huff DO Referring MD: Nicolas Colon MD Medicines: Monitored Anesthesia Care Patient Profile: This is a 48 year old female. Refer to note in patient chart for documentation of history and physical. Last Colonoscopy: several years ago. Complications: No immediate complications. Procedure: Pre-Anesthesia Assessment: - Prior to the procedure, a History and Physical was performed, and patient medications and allergies were reviewed. The patient is competent. The risks and benefits of the procedure and the sedation options and risks were discussed with the patient. All questions were answered and informed consent was obtained. Patient identification and proposed procedure were verified by the physician in the pre-procedure area. Mental Status Examination: alert and oriented. Airway Examination: normal oropharyngeal airway and neck mobility. Respiratory Examination: clear to auscultation. CV Examination: normal. Prophylactic Antibiotics: The patient does not require prophylactic antibiotics. Prior Anticoagulants: The patient has taken no anticoagulant or antiplatelet agents except for NSAID medication. ASA Grade Assessment: II - A patient with mild systemic disease. After reviewing the risks and benefits, the patient was deemed in satisfactory condition to undergo the procedure. The anesthesia plan was to use monitored anesthesia care (MAC). Immediately prior to administration of medications, the patient was re-assessed for adequacy to receive sedatives. The heart rate, respiratory rate, oxygen saturations, blood pressure, adequacy of pulmonary ventilation, and response to care were monitored throughout the procedure. The physical status of the patient was re-assessed after the procedure. After I obtained informed consent, the scope was passed under direct vision. Throughout the procedure, the patient's blood pressure, pulse, and oxygen saturations were monitored continuously. The Colonoscope was introduced through the anus and advanced to the terminal ileum. The colonoscopy was performed without difficulty. The patient tolerated the procedure well. The quality of the bowel preparation was adequate. The terminal ileum, ileocecal valve, appendiceal orifice, and rectum were photographed. Scope In: 9:14:49 AM Scope Withdrawal Time 0 hours 11 minutes 41 seconds Scope Out: 9:31:17 AM Total Procedure Duration Time 0 hours 16 minutes 28 seconds Findings: The perianal and digital rectal examinations were normal. A 6 mm polyp was found in the cecum. The polyp was sessile. The polyp was removed with a jumbo cold forceps. Resection and retrieval were complete. Verification of patient identification for the specimen was done. Estimated blood loss was minimal. A few small-mouthed diverticula were found in the recto-sigmoid colon. The exam was otherwise without abnormality on direct and retroflexion views. Impression: - One 6 mm polyp in the cecum, removed with a jumbo cold forceps. Resected and retrieved. - Diverticulosis in the recto-sigmoid colon. - The examination was otherwise normal on direct and retroflexion views. Recommendation: - Discharge patient to home. - Resume previous diet. - Continue present medications. - Await pathology results. - Repeat colonoscopy in 5 years for surveillance. Procedure Code(s): --- Professional --- 71906, Colonoscopy, flexible; with biopsy, single or multiple CPT copyright 2021 [employer]. All rights reserved. The codes documented in this report are preliminary and upon ios software engineer review may be revised to meet current compliance requirements. Hansel Huff DO 02/09/2024 9:35:56 AM This report has been signed electronically. Number of Addenda: 0 Note Initiated On: 02/09/2024 9:05 AM 02/09/24935 Date Hansel Huff DO Cosigner Signature: Date (if indicated) CC: Dr. Nicolas Colon MD; Hansel Huff DO Date Dictated: 02/09/24904 Date Transcribed: General Freight Agent: ELISHA Signed [facility] MR/POSTOP.Ezekiel 02-09-2024 MR/POSTOP.[facility] Medical Records Department [address] [place] [address] Anesthesia Postop Eval I 02/09/2443 MR#: [id number] Acct: [id number] Name: RUTHIE CORADO Rep #: [id number] : 1975 48 From: Raheem Fu PCP: Dr. Nicolas Colon MD Status:[facility] Y Race: AA Location: AC AC16-1 Anesthesia: Postop Eval I Current Vital Signs Temperature: 97 F Pulse Rate: 64 Blood Pressure: 94/53 Respiratory Rate: 16 Pulse Ox: 100 Oxygen Delivery Method: Room Air Assessment Airway patent: Yes Spontaneous unlabored respirations: Yes Mental status: Asleep nausea: No Vomiting: No Anesthesia Complication: No Fluid Hydration Crystalloid volume administer (ml): 60 Total IV fluid infused: 60 Progress Note Anesthesia document: Postop Eval 1 completed: Yes 02/09/24 0944 Date Raheem Craven Signature: Date CC: Signed Normal [facility] Surgery Specimen Level [place] 02-09-2024 Surgery Specimen Level IV -------- Patient Age/Sex Location Account Attending Physician -------- RUTHIE CORADO 48/F YAMILET [id number] Hansel Huff DO -------- Specimen: [id number] Received: 02/09/24 Status: B[facility] Allen Num: [id number] Spec Type: COLON BX Subm Dr: Hansel Huff DO HEADER OPERATION: Colonoscopy PRE-OP DIAGNOSIS: Irritable bowel syndrome with mixed bowel habits TISSUE SUBMITTED: Cecal polyp biopsy -------- MICROSCOPIC DIAGNOSIS Cecal polyp, biopsy: Active colitis. See comment. AM. 02/10/2024 COMMENT There is focal cryptitis and crypt abscess. No significant glandular distortion is seen and no transmural inflammation is present. No granulomas are identified. Eosinophils are mildly increased in the mucosa. The significance of this is unclear. Clinical correlation is suggested. MICROSCOPIC DESCRIPTION Slides are reviewed. GROSS DESCRIPTION Received in fixative is one container labeled with the patient's name and designated "Cecal polyp biopsy." The specimen consists of two irregular fragments of light cole soft tissue that in aggregate measure 0.8 x 0.3 x 0.1 cm. The specimen is totally submitted in one cassette. AM. 02/09/2024 TC:2 CPT:87444 -------- Patient Age/Sex Location Account Attending Physician -------- RUTHIE CORADO 48/F EN [id number] Hanselyasmine Huff DO -------- Signed (signature on file) Dr. Alessandro Lucero DO 02/10/24 1425 -------- Normal [facility] Comment on above: Performed By: #### L 100.0100, L501.2450, L500.4050 #### [facility] [address] [facility] [place], [address] Calprotectin, Stoolon [address] 209 ug/g Abnormal 0-120 [facility] Comment on above: Result Comment: Conc entration Interpretation Follow-Up < 5 - 50 ug/g Normal None >50 -120 ug/g Borderline Re-evaluate in 4-6 weeks >120 ug/g Abnormal Repeat as clinically indicated Performed at: [address] [id number] Paper Mill Manager: Moo Mixon MD, Phone: [phone] Performed By: #### L 100.0100, L501.2450, L500.4050 #### [facility] [address] [facility] [place], [place], [address] Giardia Lamblia, Stool EIAon 01-23-2024 Giardia Stool Negative Normal Negative [facility] Comment on above: Result Comment: Perf ormed at: - [facility] [id number] Paper Mill Manager: Moo Mixon MD, Phone: [phone] Performed at: - [facility] [id number] Paper Mill Manager: Balbir Gonzales PhD, Phone: [phone] Performed By: #### L 100.0100, L501.2450, L500.4050 #### [facility] [address] [facility] [place], [address] L7000.0750on 01-23-2024 P ELASTASE,FECA > 800 Normal >200 [facility] Comment on above: Result Comment: Resu lt Units: ug Elast./g Severe Pancreatic Insufficiency: <100 Moderate Pancreatic Insufficiency: 100 - 200 Normal: >200 Performed By: #### L 100.0100, L501.2450, L500.4050 #### [facility] [place], [address] ENTERIC PATHOGEN PANEL STOOL on 01-20-2024 EP PANEL Normal Reference Range = Not Detected GI pathogens Pnl Stl ALEX+probe Nucleic acid amplification test method Copy of report sent to Infection Control Printer [id number] 01/20/24 1108 HAYES. RESULTS CALLED TO TAMMY IN OFFICE 01/20/24 1108 Gunjan Marie. REPORT READ BACK BY TAMMY. CAMPYLOBACTER Not Detected Norovirus Not Detected Rotavirus A Rotavirus Detected A Salmonella Not Detected Shiga Toxin Not Detected Shigella sp. Not Detected VIBRIO Not Detected Yersinia Not Detected Rotavirus Normal [facility] Comment on above: Performed By: #### L 100.0100, L501.2450, L500.4050 #### [facility] [address] [facility] [place], [place], [id number] Stool Lactoferrin/WBCon 01-05 WBCST Normal Reference Range = Negative Fecal WBC Lactoferrin A Positive: Fecal WBC Lactoferrin present A Normal [facility] Comment on above: Performed By: #### L 100.0100, L501.2450, L500.4050 #### [facility] [address] [place], [address] MERRICK Comprehensive Panelon MERRICK TABLE Comment Normal . [facility] Comment on above: Result Comment: Auto antibody Disease Association Condition Frequency --------- Antinuclear Antibody, SLE, mixed connective Direct (MERRICK-D) tissue diseases --------- dsDNA SLE 40 - 60% --------- Chromatin Drug induced SLE 90% SLE 48 - 97% --------- SSA (Ro) SLE 25 - 35% Sjogren's Syndrome 40 - 70% Lupus 100% --------- SSB (La) SLE 10% Sjogren's Syndrome 30% --------- Sm (anti-Humphries) SLE 15 - 30% --------- BANANA EXPERT Mixed Connective Tissue Disease 95% (U1 nRNP, SLE 30 - 50% anti-ribonucleoprotein) Polymyositis and/or Dermatomyositis 20% --------- Scl-70 (antiDNA Scleroderma (diffuse) 20 - 35% topoisomerase) Crest 13% --------- Arleth-1 Polymyositis and/or Dermatomyositis 20 - 40% --------- Centromere B Scleroderma - Crest variant 80% Performed By: #### L 100.0100, L501.2450, L500.4050 #### [facility] [address] [facility] [place], [address] ANTI-CENT B AB 0.4 AI Normal 0.0-0.9 [facility] Comment on above: Performed By: #### L 100.0100, L501.2450, L500.4050 #### [facility] [address] [facility] [place], [address] ANTI-DNA (DS)AB <1 Normal 0-9 [facility] Comment on above: Result Comment: Nega tive <5 Equivocal 5 - 9 Positive >9 Performed By: #### L 100.0100, L501.2450, L500.4050 #### [facility] [address] [place], [address] ANTI-ARLETH-1 <0.2 Normal 0.0-0.9 [facility] Comment on above: Performed By: #### L 100.0100, L501.2450, L500.4050 #### [facility] [address] [place], [address] ANTI-SS-A < 0.2 Normal 0.0-0.9 [facility] Comment on above: Performed By: #### L 100.0100, L501.2450, L500.4050 #### [facility] [address] [place], [address] ANTI-SS-B < 0.2 Normal 0.0-0.9 [facility] Comment on above: Performed By: #### L 100.0100, L501.2450, L500.4050 #### [facility] [address] [place], [address] ANTICHROMATIN <0.2 Normal 0.0-0.9 [facility] Comment on above: Performed By: #### L 100.0100, L501.2450, L500.4050 #### [facility] [address] [place], [address] ANTISCLERODERM <0.2 Normal 0.0-0.9 [facility] Comment on above: Performed By: #### L 100.0100, L501.2450, L500.4050 #### [facility] [address] [place], [address] BANANA EXPERT Ab 0.4 AI Normal 0.0-0.9 [facility] Comment on above: Performed By: #### L 100.0100, L501.2450, L500.4050 #### [facility] [address] [place], [address] HUMPHRIES Ab <0.2 Normal 0.0-0.9 [facility] Comment on above: Performed By: #### L 100.0100, L501.2450, L500.4050 #### [facility] [address] [place], [address] ANCAon 12-28-2023 Atypical pANCA <1:20 Normal Neg:<1:20 [facility] Comment on above: Order Comment: N Result Comment: The atypical pANCA pattern has been observed in a significant percentage of patients with ulcerative colitis, primary sclerosing cholangitis and autoimmune hepatitis. Performed at: - [facility] [id number] Paper Mill Manager: Balbir Gonzales PhD, Phone: [phone] Performed at: [facility] [id number] Paper Mill Manager: Moo Mixon MD, Phone: [phone] Performed By: #### L 100.0100, L501.2450, L500.4050 #### [facility] [address] [place], [address] Cytoplasmic Ab <1:20 Normal Neg:<1:20 [facility] Comment on above: Order Comment: N Performed By: #### L 100.0100, L501.2450, L500.4050 #### [facility] [address] [place], [address] Perinuclear Ab. <1:20 Normal Neg:<1:20 [facility] Comment on above: Order Comment: N Result Comment: The presence of positive fluorescence exhibiting P-ANCA or C-ANCA patterns alone is not specific for the diagnosis of Nicole's Granulomatosis (WG) or microscopic polyangiitis. Decisions about treatment should not be based solely on ANCA IFA results. The International ANCA Group Consensus recommends follow up testing of positive sera with both RI- 3 and MPO-ANCA enzyme immunoassays. As many as 5% serum samples are positive only by EIA. Ref. AM J Clin Pathol 1999;111:507-513. Performed By: #### L 100.0100, L501.2450, L500.4050 #### [facility] [address] [place], [address] Celiac Disease Profileon ENDOMYSIAL IGA Negative Normal Negative [facility] Comment on above: Order Comment: N Performed By: #### L 100.0100, L501.2450, L500.4050 #### [facility] [address] [place], [address] tTG IGA <2 Normal 0-3 [facility] Comment on above: Order Comment: N Result Comment: Nega tive 0 - 3 Weak Positive 4 - 10 Positive >10 Tissue Transglutaminase (tTG) has been identified as the endomysial antigen. Studies have demonstr- ated that endomysial IgA antibodies have over 99% specificity for gluten sensitive enteropathy. Performed By: #### L 100.0100, L501.2450, L500.4050 #### [facility] [address] [place], [address] ÓSCAR + Protein Elect, Serumon 12-28-2023 Albumin [Mass/Vol] 3.8 g/dL Normal 2.9-4.4 [facility] Comment on above: Order Comment: N Performed By: #### L 100.0100, L501.2450, L500.4050 #### [facility] [address] [place], [address] Albumin/Globulin [Mass ratio] 1.2 {ratio} Normal 0.7-1.7 [facility] Comment on above: Order Comment: N Performed By: #### L 100.0100, L501.2450, L500.4050 #### [facility] [address] [place], [address] PPCSV-4-DMTY 0.3 g/dL Normal 0.0-0.4 [facility] Comment on above: Order Comment: N Performed By: #### L 100.0100, L501.2450, L500.4050 #### [facility] [address] [place], [address] WXHID-8-SGDF 0.6 g/dL Normal 0.4-1.0 [facility] Comment on above: Order Comment: N Performed By: #### L 100.0100, L501.2450, L500.4050 #### [facility] [address] [place], [address] BETA GLOBULIN 1.3 g/dL Normal 0.7-1.3 [facility] Comment on above: Order Comment: N Performed By: #### L 100.0100, L501.2450, L500.4050 #### [facility] [address] [place], [address] GAMMA GLOBULIN 1.2 g/dL Normal 0.4-1.8 [facility] Comment on above: Order Comment: N Performed By: #### L 100.0100, L501.2450, L500.4050 #### [facility] [address] [place], [address] Globulin (S) [Mass/Vol] 3.4 g/dL Normal 2.2-3.9 [facility] Comment on above: Order Comment: N Performed By: #### L 100.0100, L501.2450, L500.4050 #### [facility] [address] [place], [address] ÓSCAR RESULT,S Comment Normal . [facility] Comment on above: Order Comment: N Result Comment: No m onoclonality detected. Performed By: #### L 100.0100, L501.2450, L500.4050 #### [facility] [address] [place], [address] IMMUNOGLOB A QN 161 mg/dL Normal 87-352 [facility] Comment on above: Order Comment: N Performed By: #### L 100.0100, L501.2450, L500.4050 #### [facility] [address] [place], [address] IMMUNOGLOB G QN 1074 mg/dL Normal 586-1602 [facility] Comment on above: Order Comment: N Performed By: #### L 100.0100, L501.2450, L500.4050 #### [facility] [address] [place], [address] IMMUNOGLOB M QN 374 mg/dL High 26-217 [facility] Comment on above: Order Comment: N Performed By: #### L 100.0100, L501.2450, L500.4050 #### [facility] [address] [place], [address] M-Myron Not Observed Normal Not Observed [facility] Comment on above: Order Comment: N Performed By: #### L 100.0100, L501.2450, L500.4050 #### [facility] [address] [place], [address] NOTE: Comment Normal . [facility] Comment on above: Order Comment: N Result Comment: Prot ein electrophoresis scan will follow via computer, mail, or soil specialist delivery. Performed By: #### L 100.0100, L501.2450, L500.4050 #### [facility] [address] [place], [address] Protein [Mass/Vol] 7.2 g/dL Normal 6.0-8.5 [facility] Comment on above: Order Comment: N Performed By: #### L 100.0100, L501.2450, L500.4050 #### [facility] [address] [place], [address] Immunoglobulins G/A/M/Bill IMMUNOGLOB E QN 81 IU/mL Normal 6-495 [facility] Comment on above: Order Comment: N Performed By: #### L 100.0100, L501.2450, L500.4050 #### [facility] [address] [place], [address] L2100.0000on 12-28-2023 ACCA 12 units Normal 0-90 [facility] Comment on above: Order Comment: N Result Comment: Nega tive: <80 Equivocal: 80-90 Positive: >90 Performed By: #### L 100.0100, L501.2450, L500.4050 #### [facility] [address] [place], [address] ALCA 29 units Normal 0-60 [facility] Comment on above: Order Comment: N Result Comment: Nega tive:<55 Equivocal: 55-60 Positive: >60 Performed By: #### L 100.0100, L501.2450, L500.4050 #### [facility] [address] [place], [address] AMCA 111 units High 0-100 [facility] Comment on above: Order Comment: N Result Comment: Nega tive: <90 Equivocal: 90-100 Positive: >100 This test was developed and its performance characteristics determined by [facility]. It has not been cleared or approved by the Food and Drug Administration. The FDA has determined that such clearance or approval is not necessary. Performed By: #### L 100.0100, L501.2450, L500.4050 #### [facility] [address] [place], [address] Atypical pANCA Negative Normal Negative [facility] Comment on above: Order Comment: N Performed By: #### L 100.0100, L501.2450, L500.4050 #### [facility] [address] [place], [address] COMMENT Comment Abnormal . [facility] Comment on above: Order Comment: N Result Comment: Sugg estive of Crohn's Disease. Pattern is not conclusive for disease behavior risk stratification. Performed By: #### L 100.0100, L501.2450, L500.4050 #### [facility] [address] [place], [address] Nathalia 19 units Normal 0-50 [facility] Comment on above: Order Comment: N Result Comment: Nega tive: <45 Equivocal: 45-50 Positive: >50 Performed By: #### L 100.0100, L501.2450, L500.4050 #### [facility] [address] [place], [address] L5500.0550on 12-28-2023 BEEF <0.10 Normal Class 0 [facility] Comment on above: Performed By: #### L 100.0100, L501.2450, L500.4050 #### [facility] [address] [place], [address] CHOCOLATE <0.10 Normal Class 0 [facility] Comment on above: Performed By: #### L 100.0100, L501.2450, L500.4050 #### [facility] [address] [place], [address] CODFISH <0.10 Normal Class 0 [facility] Comment on above: Performed By: #### L 100.0100, L501.2450, L500.4050 #### [facility] [address] [place], [address] COMMENT Comment Normal . [facility] Comment on above: Result Comment: Walter clayton of Specific IgE Class Description of Class ----- < 0.10 0 Negative 0.10 - 0.31 0/I Equivocal/Low 0.32 - 0.55 I Low 0.56 - 1.40 II Moderate 1.41 - 3.90 III High 3.91 - 19.00 IV Very High 19.01 - 100.00 V Very High >100.00 Very High Performed By: #### L 100.0100, L501.2450, L500.4050 #### [facility] [address] [place], [address] CORN <0.10 Normal Class 0 [facility] Comment on above: Performed By: #### L 100.0100, L501.2450, L500.4050 #### [facility] [address] [place], [address] EGG, WHOLE <0.10 Normal Class 0 [facility] Comment on above: Result Comment: Perf ormed at: [facility] [id number] Paper Mill Manager: Balbir Gonzales PhD, Phone: [phone] Performed at: [facility] [id number] [employer] Mill Manager: Moo Mixon MD, Phone: [phone] Performed By: #### L 100.0100, L501.2450, L500.4050 #### [facility] [address] [place], [address] MILK (COW) 0.16 kU/L Abnormal Class 0/I [facility] Comment on above: Performed By: #### L 100.0100, L501.2450, L500.4050 #### [facility] [address] [place], [address] MUSSELS <0.10 Normal Class 0 [facility] Comment on above: Performed By: #### L 100.0100, L501.2450, L500.4050 #### [facility] [address] [place], [address] PEANUT <0.10 Normal Class 0 [facility] Comment on above: Performed By: #### L 100.0100, L501.2450, L500.4050 #### [facility] [address] [place], [address] PORK <0.10 Normal Class 0 [facility] Comment on above: Performed By: #### L 100.0100, L501.2450, L500.4050 #### [facility] [address] [place], [address] SALMON <0.10 Normal Class 0 [facility] Comment on above: Performed By: #### L 100.0100, L501.2450, L500.4050 #### [facility] [address] [place], [address] SHRIMP <0.10 Normal Class 0 [facility] Comment on above: Performed By: #### L 100.0100, L501.2450, L500.4050 #### [facility] [address] [place], [address] SOYBEAN <0.10 Normal Class 0 [facility] Comment on above: Performed By: #### L 100.0100, L501.2450, L500.4050 #### [facility] [address] [place], [address] TUNA <0.10 Normal Class 0 [facility] Comment on above: Performed By: #### L 100.0100, L501.2450, L500.4050 #### [facility] [address] [place], [address] WHEAT <0.10 Normal Class 0 [facility] Comment on above: Performed By: #### L 100.0100, L501.2450, L500.4050 #### [facility] [address] [place], [place], [id number] CBC W/Diff, Automatedon 10- Absolute Lymph 1.29 X10 3/uL Normal 0.83-4.51 [facility] Comment on above: Performed By: #### L 3100.5440, L504.2610, L101.9900, L3300.1200, L506.0400, L3200.1100, L2100.0000, L3410.2400, L501.48937, L501.6710, L501.9520, L100.0100, L500.4050, L5500.0550, L3100.3425 #### [facility] [address] [place], [place], [id number] Absolute Neut 4.2 X10 3/uL Normal 2.0-7.7 [facility] Comment on above: Performed By: #### L 3100.5440, L504.2610, L101.9900, L3300.1200, L506.0400, L3200.1100, L2100.0000, L3410.2400, L501.16114, L501.6710, L501.9520, L100.0100, L500.4050, L5500.0550, L3100.3425 #### [facility] [address] [place], [place], [id number] Basophils/100 WBC (Bld) 1.1 % High 0-1 [facility] Comment on above: Performed By: #### L 3100.5440, L504.2610, L101.9900, L3300.1200, L506.0400, L3200.1100, L2100.0000, L3410.2400, L501.82840, L501.6710, L501.9520, L100.0100, L500.4050, L5500.0550, L3100.3425 #### [facility] [address] [place], [place], [phone] (854) Eosinophils/100 WBC (Bld) 3.8 % Normal 0-5 [facility] Comment on above: Performed By: #### L 3100.5440, L504.2610, L101.9900, L3300.1200, L506.0400, L3200.1100, L2100.0000, L3410.2400, L501.91319, L501.6710, L501.9520, L100.0100, L500.4050, L5500.0550, L3100.3425 #### [facility] [address] [place], [place], [id number] (790) Erythrocyte distribution width (RBC) [Ratio] 13.6 % Normal 11.6-14.6 [facility] Comment on above: Performed By: #### L 3100.5440, L504.2610, L101.9900, L3300.1200, L506.0400, L3200.1100, L2100.0000, L3410.2400, L501.32023, L501.6710, L501.9520, L100.0100, L500.4050, L5500.0550, L3100.3425 #### [facility] [address] [place], [place], [phone] (256) Hematocrit (Bld) [Volume fraction] 37.8 % Normal 37-47 [facility] Comment on above: Performed By: #### L 3100.5440, L504.2610, L101.9900, L3300.1200, L506.0400, L3200.1100, L2100.0000, L3410.2400, L501.75749, L501.6710, L501.9520, L100.0100, L500.4050, L5500.0550, L3100.3425 #### [facility] [address] [place], [place], [phone] (677) Hemoglobin (Bld) [Mass/Vol] 13.0 g/dL Normal 12.0-15.0 [facility] Comment on above: Performed By: #### L 3100.5440, L504.2610, L101.9900, L3300.1200, L506.0400, L3200.1100, L2100.0000, L3410.2400, L501.16987, L501.6710, L501.9520, L100.0100, L500.4050, L5500.0550, L3100.3425 #### [facility] [address] [place], [address] IG% 0.500 Normal 0.0-0.9 [facility] Comment on above: Result Comment: IG% - Immature Granulocytes (promyelocytes, myelocytes and metamyelocytes) > 1% indicates that a LEFT SHIFT is Present. Performed By: #### L 3100.5440, L504.2610, L101.9900, L3300.1200, L506.0400, L3200.1100, L2100.0000, L3410.2400, L501.80062, L501.6710, L501.9520, L100.0100, L500.4050, L5500.0550, L3100.3425 #### [facility] [address] [place], [address] Lymphocytes/100 WBC (Bld) 20.3 % Normal 19-41 [facility] Comment on above: Performed By: #### L 3100.5440, L504.2610, L101.9900, L3300.1200, L506.0400, L3200.1100, L2100.0000, L3410.2400, L501.97372, L501.6710, L501.9520, L100.0100, L500.4050, L5500.0550, L3100.3425 #### [facility] [address] [place], [address] MCH (RBC) [Entitic mass] 27.0 pg Normal 27.0-32.0 [facility] Comment on above: Performed By: #### L 3100.5440, L504.2610, L101.9900, L3300.1200, L506.0400, L3200.1100, L2100.0000, L3410.2400, L501.31566, L501.6710, L501.9520, L100.0100, L500.4050, L5500.0550, L3100.3425 #### [facility] [address] [place], [address] MCHC (RBC) [Mass/Vol] 34.4 g/dL Normal 32-36 [facility] Comment on above: Performed By: #### L 3100.5440, L504.2610, L101.9900, L3300.1200, L506.0400, L3200.1100, L2100.0000, L3410.2400, L501.87571, L501.6710, L501.9520, L100.0100, L500.4050, L5500.0550, L3100.3425 #### [facility] [address] [place], [address] MCV (RBC) [Entitic vol] 78.6 fL Low 81-99 [facility] Comment on above: Performed By: #### L 3100.5440, L504.2610, L101.9900, L3300.1200, L506.0400, L3200.1100, L2100.0000, L3410.2400, L501.95572, L501.6710, L501.9520, L100.0100, L500.4050, L5500.0550, L3100.3425 #### [facility] [address] [place], [address] Monocytes/100 WBC (Bld) 8.2 % Normal 0-10 [facility] Comment on above: Performed By: #### L 3100.5440, L504.2610, L101.9900, L3300.1200, L506.0400, L3200.1100, L2100.0000, L3410.2400, L501.71305, L501.6710, L501.9520, L100.0100, L500.4050, L5500.0550, L3100.3425 #### [facility] [address] [facility] [place], [address] Neutrophils/100 WBC (Bld) 66.1 % Normal 47-70 [facility] Comment on above: Performed By: #### L 3100.5440, L504.2610, L101.9900, L3300.1200, L506.0400, L3200.1100, L2100.0000, L3410.2400, L501.62644, L501.6710, L501.9520, L100.0100, L500.4050, L5500.0550, L3100.3425 #### [facility] [address] [facility] [place], [place], [phone] (978) Nucleated RBC (Bld) [#/Vol] 0 10*3/uL Normal 0-5 [facility] Comment on above: Performed By: #### L 3100.5440, L504.2610, L101.9900, L3300.1200, L506.0400, L3200.1100, L2100.0000, L3410.2400, L501.27593, L501.6710, L501.9520, L100.0100, L500.4050, L5500.0550, L3100.3425 #### [facility] [address] [facility] [place], [address] Platelet mean volume (Bld) [Entitic vol] 11.0 fL Normal 6.2-12.0 [facility] Comment on above: Performed By: #### L 3100.5440, L504.2610, L101.9900, L3300.1200, L506.0400, L3200.1100, L2100.0000, L3410.2400, L501.09350, L501.6710, L501.9520, L100.0100, L500.4050, L5500.0550, L3100.3425 #### [facility] [address] [place], [place], [phone] (967) Platelets (Bld) [#/Vol] 256 10*3/uL Normal 150-450 [facility] Comment on above: Performed By: #### L 3100.5440, L504.2610, L101.9900, L3300.1200, L506.0400, L3200.1100, L2100.0000, L3410.2400, L501.41263, L501.6710, L501.9520, L100.0100, L500.4050, L5500.0550, L3100.3425 #### [facility] [address] [place], [place], [address] (610) RBC (Bld) [#/Vol] 4.81 10*6/uL Normal 4.2-5.4 [facility] Comment on above: Performed By: #### L 3100.5440, L504.2610, L101.9900, L3300.1200, L506.0400, L3200.1100, L2100.0000, L3410.2400, L501.60470, L501.6710, L501.9520, L100.0100, L500.4050, L5500.0550, L3100.3425 #### [facility] [address] [place], [place], [phone] (400) RDW SD 39.1 fl Normal 35.1-43.9 [facility] Comment on above: Performed By: #### L 3100.5440, L504.2610, L101.9900, L3300.1200, L506.0400, L3200.1100, L2100.0000, L3410.2400, L501.00022, L501.6710, L501.9520, L100.0100, L500.4050, L5500.0550, L3100.3425 #### [facility] [address] [place], [place], [phone] WBC (Bld) [#/Vol] 6.4 10*3/uL Normal 4.4-11.0 [facility] Comment on above: Performed By: #### L 3100.5440, L504.2610, L101.9900, L3300.1200, L506.0400, L3200.1100, L2100.0000, L3410.2400, L501.61756, L501.6710, L501.9520, L100.0100, L500.4050, L5500.0550, L3100.3425 #### [facility] [address] [facility] [place], [address] CRPon 12-23-2023 C-REACTIVE PROT 3.90 mg/L High 0.0-3.0 [facility] Comment on above: Order Comment: 1 Result Comment: C-Re active Protein (CRP) provides useful information for the diagnosis, therapy and monitoring of inflammatory processes and associated diseases. For the evaluation of Relative Risk for Cardiovascular Disease, a High Sensitivity CRP (HSCRP) should be ordered. Performed By: #### L 3100.5440, L504.2610, L101.9900, L3300.1200, L506.0400, L3200.1100, L2100.0000, L3410.2400, L501.97519, L501.6710, L501.9520, L100.0100, L500.4050, L5500.0550, L3100.3425 #### [facility] [address] [facility] [place], [address] Comprehensive Metabolic Prof ilon 12-23-2023 Albumin [Mass/Vol] 3.5 g/dL Normal 3.2-5.0 [facility] Comment on above: Order Comment: 1 Performed By: #### L 3100.5440, L504.2610, L101.9900, L3300.1200, L506.0400, L3200.1100, L2100.0000, L3410.2400, L501.46648, L501.6710, L501.9520, L100.0100, L500.4050, L5500.0550, L3100.3425 #### [facility] [address] [place], [place], [phone] Albumin/Globulin [Mass ratio] 0.8 {ratio} Low 0.9-2.4 [facility] Comment on above: Order Comment: 1 Performed By: #### L 3100.5440, L504.2610, L101.9900, L3300.1200, L506.0400, L3200.1100, L2100.0000, L3410.2400, L501.29903, L501.6710, L501.9520, L100.0100, L500.4050, L5500.0550, L3100.3425 #### [facility] [address] [facility] [address] [place], [place], [phone] ALK P 126 U/L High 45-117 [facility] Comment on above: Order Comment: 1 Performed By: #### L 3100.5440, L504.2610, L101.9900, L3300.1200, L506.0400, L3200.1100, L2100.0000, L3410.2400, L501.13391, L501.6710, L501.9520, L100.0100, L500.4050, L5500.0550, L3100.3425 #### [facility] [address] [place], [place], [id number] ALT [Catalytic activity/Vol] 22 U/L Normal 13-56 [facility] Comment on above: Order Comment: 1 Performed By: #### L 3100.5440, L504.2610, L101.9900, L3300.1200, L506.0400, L3200.1100, L2100.0000, L3410.2400, L501.69476, L501.6710, L501.9520, L100.0100, L500.4050, L5500.0550, L3100.3425 #### [facility] [address] [place], [address] AST [Catalytic activity/Vol] 17 U/L Normal 15-37 [facility] Comment on above: Order Comment: 1 Performed By: #### L 3100.5440, L504.2610, L101.9900, L3300.1200, L506.0400, L3200.1100, L2100.0000, L3410.2400, L501.03830, L501.6710, L501.9520, L100.0100, L500.4050, L5500.0550, L3100.3425 #### [facility] [address] [place], [address] Bilirubin [Mass/Vol] 0.30 mg/dL Normal 0.20-1.00 [facility] Comment on above: Order Comment: 1 Result Comment: For patients on eltrombopag therapy, use of Dimension [place] TBIL is not recommended. Performed By: #### L 3100.5440, L504.2610, L101.9900, L3300.1200, L506.0400, L3200.1100, L2100.0000, L3410.2400, L501.37723, L501.6710, L501.9520, L100.0100, L500.4050, L5500.0550, L3100.3425 #### [facility] [address] [place], [address] BUN/CRE 17.4 RATIO Normal 10-20 [facility] Comment on above: Order Comment: 1 Performed By: #### L 3100.5440, L504.2610, L101.9900, L3300.1200, L506.0400, L3200.1100, L2100.0000, L3410.2400, L501.53732, L501.6710, L501.9520, L100.0100, L500.4050, L5500.0550, L3100.3425 #### [facility] [address] [place], [place], [phone] (870) CA,Total 9.6 mg/dL Normal 8.5-10.1 [facility] Comment on above: Order Comment: 1 Performed By: #### L 3100.5440, L504.2610, L101.9900, L3300.1200, L506.0400, L3200.1100, L2100.0000, L3410.2400, L501.31448, L501.6710, L501.9520, L100.0100, L500.4050, L5500.0550, L3100.3425 #### [facility] [address] [place], [address] (883) Chloride [Moles/Vol] 106 mmol/L Normal 98-107 [facility] Comment on above: Order Comment: 1 Performed By: #### L 3100.5440, L504.2610, L101.9900, L3300.1200, L506.0400, L3200.1100, L2100.0000, L3410.2400, L501.77624, L501.6710, L501.9520, L100.0100, L500.4050, L5500.0550, L3100.3425 #### [facility] [address] [place], [place], [phone] (613) CO2 [Moles/Vol] 26.0 mmol/L Normal 21.0-32.0 [facility] Comment on above: Order Comment: 1 Performed By: #### L 3100.5440, L504.2610, L101.9900, L3300.1200, L506.0400, L3200.1100, L2100.0000, L3410.2400, L501.75332, L501.6710, L501.9520, L100.0100, L500.4050, L5500.0550, L3100.3425 #### [facility] [address] [place], [place], [phone] (234) Creatinine [Mass/Vol] 0.92 mg/dL Normal 0.55-1.02 [facility] Comment on above: Order Comment: 1 Result Comment: The validity of the calculated GFR GFRAA in patients over 70 years has not been determined. Clinical correlation is essential. Performed By: #### L 3100.5440, L504.2610, L101.9900, L3300.1200, L506.0400, L3200.1100, L2100.0000, L3410.2400, L501.11492, L501.6710, L501.9520, L100.0100, L500.4050, L5500.0550, L3100.3425 #### [facility] [address] [place], [place], [id number] EST GFR - AA 83 mL/min Normal >60 [facility] Comment on above: Order Comment: 1 Result Comment: Afri can Australian GFR Calc Performed By: #### L 3100.5440, L504.2610, L101.9900, L3300.1200, L506.0400, L3200.1100, L2100.0000, L3410.2400, L501.89348, L501.6710, L501.9520, L100.0100, L500.4050, L5500.0550, L3100.3425 #### [facility] [address] [place], [place], [phone] GAP 6 Normal 5-15 [facility] Comment on above: Order Comment: 1 Performed By: #### L 3100.5440, L504.2610, L101.9900, L3300.1200, L506.0400, L3200.1100, L2100.0000, L3410.2400, L501.26142, L501.6710, L501.9520, L100.0100, L500.4050, L5500.0550, L3100.3425 #### [facility] [address] [place], [place], [phone] GFR/1.73 sq M.predicted among non-blacks MDRD (S/P/Bld) [Vol rate/Area] 69 mL/min/{1.73_m2} Normal >60 [facility] Comment on above: Order Comment: 1 Result Comment: Non- GFR Calc Performed By: #### L 3100.5440, L504.2610, L101.9900, L3300.1200, L506.0400, L3200.1100, L2100.0000, L3410.2400, L501.96935, L501.6710, L501.9520, L100.0100, L500.4050, L5500.0550, L3100.3425 #### [facility] [address] [place], [place], [phone] (886) Globulin (S) [Mass/Vol] 4.2 g/dL Normal 2.2-4.2 [facility] Comment on above: Order Comment: 1 Performed By: #### L 3100.5440, L504.2610, L101.9900, L3300.1200, L506.0400, L3200.1100, L2100.0000, L3410.2400, L501.06578, L501.6710, L501.9520, L100.0100, L500.4050, L5500.0550, L3100.3425 #### [facility] [address] [place], [place], [phone] ([phone] Glucose [Mass/Vol] 103 mg/dL Normal 74-106 [facility] Comment on above: Order Comment: 1 Result Comment: Fast ing Glucose result from 100 to 125 mg/dL suggests IMPAIRED HOMEOSTASIS per A.D.A. criteria. Performed By: #### L 3100.5440, L504.2610, L101.9900, L3300.1200, L506.0400, L3200.1100, L2100.0000, L3410.2400, L501.76790, L501.6710, L501.9520, L100.0100, L500.4050, L5500.0550, L3100.3425 #### [facility] [address] [place], [address] Potassium [Moles/Vol] 3.9 mmol/L Normal 3.5-5.1 [facility] Comment on above: Order Comment: 1 Performed By: #### L 3100.5440, L504.2610, L101.9900, L3300.1200, L506.0400, L3200.1100, L2100.0000, L3410.2400, L501.71198, L501.6710, L501.9520, L100.0100, L500.4050, L5500.0550, L3100.3425 #### [facility] [address] [place], [address] (549) Sodium [Moles/Vol] 139 mmol/L Normal 136-145 [facility] Comment on above: Order Comment: 1 Performed By: #### L 3100.5440, L504.2610, L101.9900, L3300.1200, L506.0400, L3200.1100, L2100.0000, L3410.2400, L501.98653, L501.6710, L501.9520, L100.0100, L500.4050, L5500.0550, L3100.3425 #### [facility] [address] [place], [place], [phone] (632) T PROT 7.7 g/dL Normal 6.4-8.2 [facility] Comment on above: Order Comment: 1 Performed By: #### L 3100.5440, L504.2610, L101.9900, L3300.1200, L506.0400, L3200.1100, L2100.0000, L3410.2400, L501.00578, L501.6710, L501.9520, L100.0100, L500.4050, L5500.0550, L3100.3425 #### [facility] [address] [place], [place], [phone] (552) Urea nitrogen [Mass/Vol] 16 mg/dL Normal 7-18 [facility] Comment on above: Order Comment: 1 Performed By: #### L 3100.5440, L504.2610, L101.9900, L3300.1200, L506.0400, L3200.1100, L2100.0000, L3410.2400, L501.90001, L501.6710, L501.9520, L100.0100, L500.4050, L5500.0550, L3100.3425 #### [facility] [address] [place], [place], [phone] Erythrocyte Sed Rateon 12-22 SED RATE 40 mm/hr High 0-30 [facility] Comment on above: Performed By: #### L 3100.5440, L504.2610, L101.9900, L3300.1200, L506.0400, L3200.1100, L2100.0000, L3410.2400, L501.79874, L501.6710, L501.9520, L100.0100, L500.4050, L5500.0550, L3100.3425 #### [facility] [address] [place], [place], [phone] Free T3on 12-23-2023 Free T3 [Mass/Vol] 2.1 pg/mL Low 2.18-3.98 [facility] Comment on above: Order Comment: 1 Performed By: #### L 3100.5440, L504.2610, L101.9900, L3300.1200, L506.0400, L3200.1100, L2100.0000, L3410.2400, L501.32069, L501.6710, L501.9520, L100.0100, L500.4050, L5500.0550, L3100.3425 #### [place] [facility] [address] [place], [place], [id number] Gastroenterology Visit Repor ton 12-23-2023 Gastroenterology Visit Report [facility] Gastroenterology [address] [place] [address] OFFICE VISIT Date of Service: 12/23/23 MR#: [id number] Acct: [id number] Name: RUTHIE CORADO Rep #: [id number] : 1975 Provider: KAMERON mullen Age/Sex: 48/F [place] [facility] [place] Status: Signed Intake Vital Signs 08/04/22 14:26 12/22/23 08:31 Height 5 ft 5 in 5 ft 5 in Intake Visit Reasons: Abdominal pain Chief Complaint: STOMACH PAIN e.r. f/u [place] Required: No Allergies cephalexin Allergy (Verified 12/23/23 09:03) Fever and skin rash Penicillins (PCN) Allergy (Verified 12/23/23 09:03) Hives Nurse's Note: Nausea, goes between constipation and loose stools. Still has 6 out of 10 pain. cant lay on right side. 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 f/u Details: RUTHIE CORADO, is a 48 F who presents to the office today for establishment with [facility] for complaints of right-sided abdominal pain, rated 6/10, with severe nausea brought on by eating for the last year. She denies difficulty chewing and swallowing, heartburn, reflux, vomiting. She reports abdominal bloating, cramping, pain, and urgency at times with diarrhea. She reports that she has a son with CF and is familiar with bowel clean out protocol but she wanted to be sure nothing else was wrong with her stomach before doing this. She denies fever, chills, and change in water supply. 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 She states that she has been eating a very bland diet to try to alleviate her symptoms. She prefers to not just take medicines for symptoms without knowing why the symptoms are there. She reports incomplete evacuation, has been seeing hematochezia, blood from within the stool, not laced around it. She denies melena and blood while wiping. She reports that her last colonoscopy was about 10 years ago to investigate LLQ abdominal pain. ROS Const Constitutional: Positive for fatigue; No chills or fever(s) Eyes Eyes: No change in vision ENT ENT: No abnormal hearing Resp Respiratory: No cough Cardio Cardiology: No chest pain at rest, chest pain with exertion or leg pain with exertion Gastro GI: Positive for abdominal pain, bloating, change in bowel habits, constipation, heartburn, excessive flatus, Blood in stool and nausea/dyspepsia Genitourinary-Female: No difficulty urinating Musc Musculoskeletal: Positive for back pain and muscle cramps; No leg pain with exertion Skin Skin: Positive for itchy eyes; No yellowing of the eye Neuro Neurology: No abnormal hearing Endo Endocrine: Positive for fatigue Aller/Imm Allergy/Immunologic: Positive for itchy eyes; No food intolerance Cristiano/Lymp Hematologic/Lymphatic : No easy bleeding or easy bruising Exam Const General: cooperative, healthy appearing, comfortable and no acute distress Nutritional Appearance: overweight Orientation: alert [facility] Head: normal to inspection Ears: hearing grossly normal bilaterally Nose: external nose normal Face and sinus: normal facial exam and face symmetric Eyes General: appearance normal, both eyes and all related structures Sclera: sclerae normal Neck Neck: normal visual inspection and full ROM Neck mass: No Chest Chest palpation inspection: normal inspection of the chest Resp Effort Inspection: normal respiratory effort, able to speak in complete sentences and symmetric chest movement GI Inspection: distended Skin General: no rashes or lesions noted Neuro General: patient alert, patient awake, patient oriented x3 and moves all extremities Cognition: normal cognition Speech: speech normal Gait: normal gait Extrem (more content not included)... Normal [facility] LDHon 12-23-2023 LDH 206 U/L Normal 84-246 [facility] Comment on above: Order Comment: 1 Performed By: #### L 100.0100, L501.2450, L500.4050 #### [facility] [address] [place], [address] T4 Free Directon 12-23-2023 T4 FREE DIRECT 0.88 ng/dL Normal 0.76-1.46 [facility] Comment on above: Order Comment: 1 Performed By: #### L 100.0100, L501.2450, L500.4050 #### [facility] [address] [place], [address] Thyroid Stim Hormone (TSH)on 12-23-2023 TSH 1.730 uIU/mL Normal 0.358-3.740 [facility] Comment on above: Order Comment: 1 Performed By: #### L 3100.5440, L504.2610, L101.9900, L3300.1200, L506.0400, L3200.1100, L2100.0000, L3410.2400, L501.75337, L501.6710, L501.9520, L100.0100, L500.4050, L5500.0550, L3100.3425 #### [facility] [address] [place], [address] Abdomen/Pelvis W IV Cont ONL Yon 12-22-2023 Abdomen/Pelvis W IV Cont ONLY [facility] Imaging Services [address] [place] [address] Abdomen/Pelvis W IV Cont ONLY MR#: [id number] Acct: [id number] Name: RUTHIE CORADO Rep #: [id number] : 1975 F 48 From: Kya underwood MD PCP: Dr. Nicolas Colon MD Status: REG ER Study: Abdomen/Pelvis W IV Cont ONLY Date of Exam: Exam# [id number] Ordering Dr: Aditya Stoll DO [id number] HISTORY: Abdominal pain. TECHNIQUE: Helically acquired images were obtained of the abdomen and pelvis after the intravenous administration of 100 mL Isovue-300. A radiation dose optimization technique was used for this scan. 400 images. COMPARISON: 07/31/2022. FINDINGS: LOWER CHEST: Lung bases clear. BOWEL: Small bowel and appendix nondilated. Large amount of stool throughout the colon. Chronic linear metallic foreign body or surgical clip of the ascending colonic wall. PERITONEUM: No significant ascites. LIVER: No enhancing mass. GALLBLADDER/BILIARY TREE: Absent gallbladder. SPLEEN/PANCREAS: Homogeneous and nonenlarged. ADRENAL GLANDS/KIDNEYS: Unremarkable. VESSELS: No abdominal aortic aneurysm. PELVIC ORGANS: Absent uterus. BONES: Intact. CT/Abdomen/Pelvis W IV Cont ONLY IMPRESSION: Large amount stool in the colon. Electronically Signed: Kya Lopez MD at 11:46 EDT , CC: Dr. Nicolas Colon MD; Dr. Aditya Stoll DO General Freight Agent: Signed Normal [facility] CBC W/Diff, Automatedon 12-05 Absolute Lymph 1.13 X10 3/uL Normal 0.83-4.51 [facility] Comment on above: Performed By: #### L 100.0100, L501.2450, L500.4050 #### [facility] [address] [place], [address] Absolute Neut 4.1 X10 3/uL Normal 2.0-7.7 [facility] Comment on above: Performed By: #### L 100.0100, L501.2450, L500.4050 #### [facility] [address] [place], [address] Basophils/100 WBC (Bld) 0.8 % Normal 0-1 [facility] Comment on above: Performed By: #### L 100.0100, L501.2450, L500.4050 #### [facility] [address] [place], [address] Eosinophils/100 WBC (Bld) 3.8 % Normal 0-5 [facility] Comment on above: Performed By: #### L 100.0100, L501.2450, L500.4050 #### [facility] [address] [place], [address] Erythrocyte distribution width (RBC) [Ratio] 13.8 % Normal 11.6-14.6 [facility] Comment on above: Performed By: #### L 100.0100, L501.2450, L500.4050 #### [facility] [address] [place], [address] Hematocrit (Bld) [Volume fraction] 39.7 % Normal 37-47 [facility] Comment on above: Performed By: #### L 100.0100, L501.2450, L500.4050 #### [facility] [address] [place], [address] Hemoglobin (Bld) [Mass/Vol] 13.1 g/dL Normal 12.0-15.0 [facility] Comment on above: Performed By: #### L 100.0100, L501.2450, L500.4050 #### [facility] [address] [place], [address] IG% 0.300 Normal 0.0-0.9 [facility] Comment on above: Result Comment: IG% - Immature Granulocytes (promyelocytes, myelocytes and metamyelocytes) > 1% indicates that a LEFT SHIFT is Present. Performed By: #### L 100.0100, L501.2450, L500.4050 #### [facility] [address] [place], [address] Lymphocytes/100 WBC (Bld) 18.6 % Low 19-41 [facility] Comment on above: Performed By: #### L 100.0100, L501.2450, L500.4050 #### [facility] [address] [place], [address] MCH (RBC) [Entitic mass] 26.4 pg Low 27.0-32.0 [facility] Comment on above: Performed By: #### L 100.0100, L501.2450, L500.4050 #### [facility] [address] [place], [address] MCHC (RBC) [Mass/Vol] 33.0 g/dL Normal 32-36 [facility] Comment on above: Performed By: #### L 100.0100, L501.2450, L500.4050 #### [facility] [address] [place], [address] MCV (RBC) [Entitic vol] 79.9 fL Low 81-99 [facility] Comment on above: Performed By: #### L 100.0100, L501.2450, L500.4050 #### [facility] [address] [place], [address] Monocytes/100 WBC (Bld) 8.9 % Normal 0-10 [facility] Comment on above: Performed By: #### L 100.0100, L501.2450, L500.4050 #### [facility] [address] [place], [address] Neutrophils/100 WBC (Bld) 67.6 % Normal 47-70 [facility] Comment on above: Performed By: #### L 100.0100, L501.2450, L500.4050 #### [facility] [address] [place], [address] Nucleated RBC (Bld) [#/Vol] 0 10*3/uL Normal 0-5 [facility] Comment on above: Performed By: #### L 100.0100, L501.2450, L500.4050 #### [facility] [address] [place], [address] Platelet mean volume (Bld) [Entitic vol] 10.8 fL Normal 6.2-12.0 [facility] Comment on above: Performed By: #### L 100.0100, L501.2450, L500.4050 #### [facility] [address] [place], [address] Platelets (Bld) [#/Vol] 243 10*3/uL Normal 150-450 [facility] Comment on above: Performed By: #### L 100.0100, L501.2450, L500.4050 #### [facility] [address] [place], [address] RBC (Bld) [#/Vol] 4.97 10*6/uL Normal 4.2-5.4 [facility] Comment on above: Performed By: #### L 100.0100, L501.2450, L500.4050 #### [facility] [address] [place], [address] RDW SD 40.2 fl Normal 35.1-43.9 [facility] Comment on above: Performed By: #### L 100.0100, L501.2450, L500.4050 #### [facility] [address] [place], [address] WBC (Bld) [#/Vol] 6.1 10*3/uL Normal 4.4-11.0 [facility] Comment on above: Performed By: #### L 100.0100, L501.2450, L500.4050 #### [facility] [address] [place], [address] Comprehensive Metabolic Prof ilon 12-22-2023 Albumin [Mass/Vol] 3.5 g/dL Normal 3.2-5.0 [facility] Comment on above: Performed By: #### L 100.0100, L501.2450, L500.4050 #### [facility] [address] [place], [address] Albumin/Globulin [Mass ratio] 0.9 {ratio} Normal 0.9-2.4 [facility] Comment on above: Performed By: #### L 100.0100, L501.2450, L500.4050 #### [facility] [address] [place], [address] ALK P 128 U/L High 45-117 [facility] Comment on above: Performed By: #### L 100.0100, L501.2450, L500.4050 #### [facility] [address] [place], [address] ALT [Catalytic activity/Vol] 24 U/L Normal 13-56 [facility] Comment on above: Performed By: #### L 100.0100, L501.2450, L500.4050 #### [facility] [address] [place], [address] AST [Catalytic activity/Vol] 17 U/L Normal 15-37 [facility] Comment on above: Performed By: #### L 100.0100, L501.2450, L500.4050 #### [facility] [address] [place], [address] Bilirubin [Mass/Vol] 0.30 mg/dL Normal 0.20-1.00 [facility] Comment on above: Result Comment: For patients on eltrombopag therapy, use of Dimension [place] TBIL is not recommended. Performed By: #### L 100.0100, L501.2450, L500.4050 #### [facility] [address] [place], [address] BUN/CRE 15.3 RATIO Normal 10-20 [facility] Comment on above: Performed By: #### L 100.0100, L501.2450, L500.4050 #### [facility] [address] [place], [address] CA,Total 10.0 mg/dL Normal 8.5-10.1 [facility] Comment on above: Performed By: #### L 100.0100, L501.2450, L500.4050 #### [facility] [address] [place], [address] Chloride [Moles/Vol] 109 mmol/L High 98-107 [facility] Comment on above: Performed By: #### L 100.0100, L501.2450, L500.4050 #### [facility] [address] [place], [address] CO2 [Moles/Vol] 30.0 mmol/L Normal 21.0-32.0 [facility] Comment on above: Performed By: #### L 100.0100, L501.2450, L500.4050 #### [facility] [address] [place], [address] Creatinine [Mass/Vol] 0.85 mg/dL Normal 0.55-1.02 [facility] Comment on above: Result Comment: The validity of the calculated GFR GFRAA in patients over 70 years has not been determined. Clinical correlation is essential. Performed By: #### L 100.0100, L501.2450, L500.4050 #### [facility] [address] [place], [address] ECRCL 90.47 ml/min Normal [facility] Comment on above: Performed By: #### L 100.0100, L501.2450, L500.4050 #### [facility] [address] [place], [address] EST GFR - AA 91 mL/min Normal >60 [facility] Comment on above: Result Comment: Afri can Australian GFR Calc Performed By: #### L 100.0100, L501.2450, L500.4050 #### [facility] [address] [place], [address] GAP 4 Low 5-15 [facility] Comment on above: Performed By: #### L 100.0100, L501.2450, L500.4050 #### [facility] [address] [place], [address] GFR/1.73 sq M.predicted among non-blacks MDRD (S/P/Bld) [Vol rate/Area] 75 mL/min/{1.73_m2} Normal >60 [facility] Comment on above: Result Comment: Non- GFR Calc Performed By: #### L 100.0100, L501.2450, L500.4050 #### [facility] [address] [place], [address] Globulin (S) [Mass/Vol] 4.0 g/dL Normal 2.2-4.2 [facility] Comment on above: Performed By: #### L 100.0100, L501.2450, L500.4050 #### [facility] [address] [place], [address] Glucose [Mass/Vol] 100 mg/dL Normal 74-106 [facility] Comment on above: Result Comment: Fast ing Glucose result from 100 to 125 mg/dL suggests IMPAIRED HOMEOSTASIS per A.D.A. criteria. Performed By: #### L 100.0100, L501.2450, L500.4050 #### [facility] [address] [place], [address] Potassium [Moles/Vol] 4.0 mmol/L Normal 3.5-5.1 [facility] Comment on above: Performed By: #### L 100.0100, L501.2450, L500.4050 #### [facility] [address] [place], [address] Sodium [Moles/Vol] 142 mmol/L Normal 136-145 [facility] Comment on above: Performed By: #### L 100.0100, L501.2450, L500.4050 #### [facility] [address] [place], [address] T PROT 7.5 g/dL Normal 6.4-8.2 [facility] Comment on above: Performed By: #### L 100.0100, L501.2450, L500.4050 #### [facility] [address] [place], [address] Urea nitrogen [Mass/Vol] 13 mg/dL Normal 7-18 [facility] Comment on above: Performed By: #### L 100.0100, L501.2450, L500.4050 #### [facility] [address] [place], [address] Emergency Department Summary on 12-22-2023 Emergency Department Summary [facility] Medical Records Department [address] [place] [address] Emergency Department Summary 12/22/23 MR#: [id number] Acct: [id number] Name: RUTHIE CORADO Jose Rep #: [id number] : 1975 48 From: Aditya Stoll DO PCP: Dr. Nicolas Colon MD Status:DEP ER Location: ED HPI HPI - GI History of Present Illness Chief Complaint: Abd Pain Informant: patient Abdominal Pain/Flank Pain Onset: Days (3) Context: Gradual Onset Timing: Continuous Quality: Stabbing Location: RLQ and Right Flank Worsened by: Nothing Relieved by: Nothing Nausea/Vomiting/Emesi s GI Symptom: Positive for Nausea; Negative for Vomiting Diarrhea/Melena/Hemat ochezia GI Symptom: Negative for Diarrhea, Melena or Hematochezia Associated Symptoms Associated Symptoms: Negative for Dysuria, Frequency or Hematuria Narrative Narrative: Patient presents with right-sided abdominal pain and right flank pain that has been getting progressively worse over the past 3 days. Patient describes the pain as stabbing. Patient states it is mainly over the right side of her abdomen. Patient states nothing makes it better and nothing makes it worse. Patient admits to some nausea but denies any vomiting. Patient denies any diarrhea, melena, or hematochezia. Patient denies any dysuria, frequency, or hematuria. Patient denies any fevers but admits to some subjective chills. [facility] Medical History (Updated 12/22/23 @ 12:[address] Aditya Stoll DO) Neck pain on right side Right upper quadrant pain Contusion of left knee Sprain of left foot Left ankle sprain History of anemia Home Medications ???Medication ???Instructions ???Recorded ???Last Taken ???Type estradiol 0.05 mg/24 hr semiweekly 1 patch transdermal 2XW #8 ea 08/05/22 Unknown Rx transdermal patch (Vivelle-Dot) Allergy/AdvReac Type Severity Reaction Status Date / Time cephalexin Allergy Fever and Verified 12/22/23 08:30 skin rash Penicillins (PCN) Allergy Hives Verified 12/22/23 08:30 Family History Sister CVA (cerebral vascular accident) Thyroid disorder Depression Mother Thyroid disorder Surgical History S/P tonsillectomy S/P cholecystectomy S/P bunionectomy S/P hysterectomy ( 2017) S/P lumpectomy of breast Social History household members: children number of children: 3 current occupational status: employed 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 history of recent travel: Yes out of state: Yes Smoking Status: Never smoker alcohol intake: current alcohol intake frequency: holidays/special occasions only substance use type: does not use what type of physical activity do you participate in: none seatbelt use: always do you feel safe at home: Yes additional social history: ROS ROS ED Constitutional Constitutional ED: Reports chills and subjective; Denies fever(s) Eyes Eyes: Denies blurry vision or change in vision ENT ENT ED: Denies rhinorrhea or sore throat Cardiovascular Cardiovascular: Denies chest pain or palpitations Respiratory/Chest Respiratory/Chest: Denies cough or dyspnea Gastrointestinal Gastrointestinal: Reports abdominal pain and nausea; Denies diarrhea or vomiting Genitourinary Genitourinary ED: Denies dysuria, hematuria or urinary frequency Musculoskeletal Musculoskeletal: Reports back pain; Denies neck pain Integumentary Denies abscess or rash Neurologic Neurologic: Denies headache(s) or weakness Allergic/Immunologic Allergic/Immunologic ED: Denies mouth swelling or urticaria EXAM Physical Exam Const Vital Signs: 12/22/23 08:31 12/22/23 10:29 12/22/23 12:14 Temperature 97.8 F 98.0 F Temperature Source Oral Oral Pulse Rate 92 88 85 Respiratory Rate 18 18 12 Blood Pressure 114/71 111/70 126/71 H Blood Pressure Mean 85 83 89 Pulse Ox 98 97 98 Oxygen Delivery Method Room Air Room Air Room Air Positive well nourished and well developed General Appearance ED: well developed and NAD HEENT Reports moist mucous membranes normocephalic and atraumatic Neck supple and no JVD Resp normal respiratory effort and clear to auscultation bilaterally Cardio regular rate and regular rhythm GI non-distended Palpation: soft and tender RLQ and suprapubic; Negative for guarding or rebound tenderness present Back/Spine General Back: CVA tenderness right Neuro CN's II-XII intact bilaterally, moves all extremities and no sensory deficits noted Sensorium / Orientation: alert Motor Exam: strength 5/5 throughout Psych mental status grossly normal MDM MDM MDM Narrative Medical decision making narrative: Differential diagnosis incl (more content not included)... Normal [facility] Lipaseon 12-22-2023 Lipase [Catalytic activity/Vol] 29 U/L Normal 13-75 [facility] Comment on above: Result Comment: Paola gold note: LIPASE revised reference range effective 22. New Lipase methodology. Expected to produce lower values than the previous assay method. NEW Reference Range: 13 - 75 U/L Performed By: #### L 100.0100, L501.2450, L500.4050 #### [facility] [address] [place], [address] Urinalysis, Completeon 12-21 EPI,SQUAMOUS 5-10 SEEN Normal 5-10 [facility] Comment on above: Order Comment: CLEAN CATCH Performed By: #### L 100.0100, L501.2450, L500.4050 #### [facility] [address] [place], [address] WBC 0-5 SEEN Normal 0-5 [facility] Comment on above: Order Comment: CLEAN CATCH Performed By: #### L 100.0100, L501.2450, L500.4050 #### [facility] [address] [place], [address] BACTERIA 0 SEEN Normal None Seen [facility] Comment on above: Order Comment: CLEAN CATCH Performed By: #### L 100.0100, L501.2450, L500.4050 #### [facility] [address] [place], [address] Mucus Ql (Urine sed) 0 SEEN Normal [facility] Comment on above: Order Comment: CLEAN CATCH Performed By: #### L 100.0100, L501.2450, L500.4050 #### [facility] [address] [place], [address] RBC 0 SEEN Normal 0-5 [facility] Comment on above: Order Comment: CLEAN CATCH Performed By: #### L 100.0100, L501.2450, L500.4050 #### [facility] [address] [place], [address] EGD DIAGNOSTICon 02-03-2023 [facility] XR Foot - left AP and Latera l and obliqueon 02-12-2020 IMPRESSION: No acute osseous abnormality identified. General Freight Agent: MALCOM Transcribe Date/Time: Feb 12 2020 5:58P Dictated by : ANEUDY MUNGUIA MD This examination was interpreted and the report reviewed and electronically signed by: ANEUDY MUNGUIA MD on Feb 12 2020 5:59PM EST DIVISION OF RADIOLOGY * * *Final Report* * * DATE OF EXAM: Feb 12 2020 5:50PM WOX [id number] - XR FOOT 3V AP/LAT/OBL LT / PROCEDURE REASON: Foot pain, left * * * * Physician Interpretation * * * * Left foot radiographs HISTORY: 44 years old Clinical information: Foot pain, left pt states pain for 2 months all along the 5th MT area no inj TECHNIQUE: Images: XR FOOT 3V AP/LAT/OBL LT Comparison: None. RESULT: Findings: Plantar calcaneal spur. No fracture or dislocation identified. No soft tissue abnormality identified. Postsurgical changes involving left foot. DIVISION OF RADIOLOGY Provider, [facility] - 02/12/2020 * * *Final Report* * * DATE OF EXAM: Feb 12 2020 5:50PM WOX [id number] - XR FOOT 3V AP/LAT/OBL LT / PROCEDURE REASON: Foot pain, left * * * * Physician Interpretation * * * * Left foot radiographs HISTORY: 44 years old Clinical information: Foot pain, left pt states pain for 2 months all along the 5th MT area no inj TECHNIQUE: Images: XR FOOT 3V AP/LAT/OBL LT Comparison: None. RESULT: Findings: Plantar calcaneal spur. No fracture or dislocation identified. No soft tissue abnormality identified. Postsurgical changes involving left foot. IMPRESSION IMPRESSION: No acute osseous abnormality identified. General Freight Agent: PSCB Transcribe Date/Time: Feb 12 2020 5:58P Dictated by : ANEUDY MUNGUIA MD This examination was interpreted and the report reviewed and electronically signed by: ANEUDY MUNGUIA MD on Feb 12 2020 5:59PM EST [facility] Radiology Study observation (narrative) [facility] XR Foot - left AP and Latera l and obliqueOrdered By: [facility]cf Provider on 02-12-2020 [facility] Vital Signs Date Time Vital Sign Value Performing Clinician Antonino swann 02-03-2023 12:26-0500 Diastolic blood pressure 68 mm[Hg] Niko Perez MD Work Phone: [facility] 02-03-2023 12:26-0500 Heart rate 76 /min Niko Perez MD Work Phone: [facility] 02-03-2023 12:26-0500 Respiratory rate 16 /min Niko Perez MD Work Phone: [facility] 02-03-2023 12:26-0500 SaO2% (BldA) [Mass fraction] 97 % Niko Perez MD Work Phone: [facility] 02-03-2023 12:26-0500 Systolic blood pressure 116 mm[Hg] Niko Perez MD Work Phone: [facility] 02-03-2023 10:42-0500 Body temperature 96.3 [degF] Niko Perez MD Work Phone: [facility] 02-03-2023 10:42-0500 Body weight 91.2 kg Niko Perez MD Work Phone: [facility] 08-24-2022 14:36-0400 Body height 165.1 cm Ortiz Daily MD Work Phone: [facility] 08-24-2022 14:36-0400 Body temperature 97.7 [degF] Ortiz Daily MD Work Phone: [facility] 08-24-2022 14:36-0400 Body weight 91.17 kg Ortiz Daily MD Work Phone: [facility] 08-24-2022 14:36-0400 Diastolic blood pressure 68 mm[Hg] Ortiz Daily MD Work Phone: [facility] 08-24-2022 14:36-0400 Heart rate 91 /min Ortiz Daily MD Work Phone: [facility] 08-24-2022 14:36-0400 SaO2% (BldA) [Mass fraction] 97 % Ortiz Daily MD Work Phone: [facility] 08-24-2022 14:36-0400 Systolic blood pressure 108 mm[Hg] Ortiz Daily MD Work Phone: [facility] 11-29-2021 10:53-0400 Body temperature 97.59 [degF] Violeta Praisler-Wood BLOW UP OPERATOR.DIRECTOR TRADE Work Phone: [facility] 11-29-2021 10:53-0400 Body weight 92.53 kg Violeta Praisler-Wood BLOW UP OPERATOR.DIRECTOR TRADE Work Phone: [facility] 11-29-2021 10:53-0400 Diastolic blood pressure 80 mm[Hg] Violeta Praisler-Wood BLOW UP OPERATOR.DIRECTOR TRADE Work Phone: [facility] 11-29-2021 10:53-0400 Heart rate 70 /min Violeta Praisler-Wood BLOW UP OPERATOR.DIRECTOR TRADE Work Phone: [facility] 11-29-2021 10:53-0400 Respiratory rate 16 /min Violeta Praisler-Wood BLOW UP OPERATOR.DIRECTOR TRADE Work Phone: [facility] 11-29-2021 10:53-0400 SaO2% (BldA) [Mass fraction] 98 % Violeta Praisler-Wood BLOW UP OPERATOR.DIRECTOR TRADE Work Phone: [facility] 11-29-2021 10:53-0400 Systolic blood pressure 110 mm[Hg] Violeta Praisler-Wood BLOW UP OPERATOR.DIRECTOR TRADE Work Phone: [facility] Encounters Encounter Date Encounter Type Care Provider Facility Start: 01-01-2025 End: 01-01[facility] Start: 05-24-2024 End: 05-24-2024 [facility] Start: 04-26-2024 End: 04-26-2024 ambulatory Efewdraytonbe Olee Facility:[facility] Start: 03-09-2024 End: 03-09-2024 ambulatory Efewongbe Olee Facility:[facility] Start: 03-09-2024 End: 03-09-2024 [facility] Start: 02-09-2024 End: 02-09-2024 [facility] Start: 01-19-2024 End: 01-19-2024 ambulatory Olamide Fisher Facility:[facility] Start: 12-23-2023 End: 12-23-2023 ambulatory Nicolas Colon Facility:[facility] Start: 12-23-2023 End: 12-23-2023 ambulatory Olamide Fisher Facility:[facility] Start: 12-22-2023 End: 12-22-2023 Emergency department patient visit [facility] Facility:[facility] Start: 05-11-2023 Telephone encounter Niko Perez MD Work Phone: General Surgery Comment on above: Orders (Gastroentero logist referral) Start: 02-08-2023 ambulatory Niko denise MD Work Phone: General Surgery Comment on above: Endoscopy Results Start: 02-08-2023 E-mail encounter fro m caregiver Niko Perez MD Work Phone: [facility] Start: 02-08-2023 Telephone encounter Niko Perez MD Work Phone: General Surgery Comment on above: Results Start: 02-03-2023 End: 02-03-2023 Subsequent hospital visit by physician Niko Perez MD Work Phone: Ambulatory Surgery Comment on above: RUQ pain [R10.11] Start: 08-24-2022 End: 08-24-2022 Patient encounter procedure Ortiz Daily MD Work Phone: General Surgery Comment on above: RUQ pain (Primary Dx ) Start: 12-16-2021 End: 12-16-2021 Patient encounter procedure Zan Hauser MD Work Phone: Ophthalmology Comment on above: Hordeolum externum o f left upper eyelid (Primary Dx) Start: 12-07-2021 End: 12-07-2021 Patient encounter procedure Keli Iqbal OD Work Phone: Ophthalmology Comment on above: Preseptal cellulitis of left upper eyelid (Primary Dx); Hordeolum externum of left upper eyelid Start: 11-29-2021 End: 09-25-2022 Patient encounter procedure Violeta Ng APRN.DIRECTOR TRADE Work Phone: [facility] Comment on above: Hordeolum externum o f left upper eyelid (Primary Dx) Start: 02-12-2020 End: 02-12-2020 Subsequent hospital visit by physician Xr [facility] Mario Work Phone: Radiology Comment on above: Foot pain, left [M79 .672] Start: 07-05-2007 End: 02-02-2012 Patient encounter status Xr Mario Work Phone: [facility] Work Phone: Procedures Date Procedure Procedure Detail Performing Clinician Start: 02-03-2023 Esophagogastroduodenoscopy transoral diagnostic Ortiz Daily MD Work Phone: Start: 02-12-2020 Radex foot complete minimum 3 views Cally Robbins BLOW UP OPERATOR.DIRECTOR TRADE Work Phone: Start: 02-21-2012 Colonoscopy Violeta Ng BLOW UP OPERATOR.DIRECTOR TRADE Work Phone: Start: 07-29-2007 Lipid 1996 panel - Serum or Plasma Camryn cruz Perez MD Work Phone: Plan of Treatment Date Care Activity Detail Author Start: 10-20-2025 Urine microalbumin profile [facility] Start: 11-06-2023 Covid-19 Vaccine ( season) Covid-19 Vaccine ( season) [facility] Start: 11-06-2023 Influenza vaccination Influenza Vacc ine (#1) [facility] Start: 09-04-2023 Shingrix Vaccine (1 of 2) Shingrix Vaccine (1 of 2) [facility] Start: 03-07-2023 Depression Assessment Depression Ass essment [facility] Start: 11-05-2022 Covid-19 Vaccine ( season) Covid-19 Vaccine ( season) [facility] Start: 11-05-2022 Influenza vaccination C [facility] Start: 03-07-2022 DEPRESSION ASSESSMENT DEPRESSION ASS ESSMENT [facility] Start: 11-05-2021 Influenza vaccination INFLUENZA (#1) [facility] Start: 03-07-2021 DEPRESSION ASSESSMENT DEPRESSION ASS ESSMENT [facility] Start: 10-24-2020 COVID-19 VACCINE (3 - Booster for Pfizer series) COVID-19 VACCINE (3 - Booster for Pfizer series) [facility] Start: 07-21-2019 DIABETES SCREEN DIABETES SCREEN [facility] Start: 07-21-2019 Diabetes Screening Diabetes Screenin g [facility] Start: 2018 COLOGUARD (FIT-DNA) COLOGUARD (FIT-D NA) [facility] Start: 2018 Colonoscopy COLONOSCOPY [facility] Start: 2018 COLORECTAL CANCER SCREENING COLORECTAL CANCER SCREENING [facility] Start: [address] COLONOGRAPHY [facility] Start: 2018 FECAL OCCULT BLOOD FECAL OCCULT BLOO D [facility] Start: 2018 Lipid 1996 panel - S karlos or Plasma Lipid Screening [facility] Start: 2018 Lipid panel Lipid Screening [facility] Start: 2018 LIPID SCREEN LIPID SCREEN [facility] Start: 2018 Screening for malign ant neoplasm of colon [facility] Start: 2018 SIGMOIDOSCOPY SIGMOIDOSCOPY [facility] Start: 2013 Mammography [facility] Start: 2013 Screening for malign ant neoplasm of breast Mammogram Screening [facility] Start: 1992 Hepatitis B Vaccine (1 of 3 - 19+ 3-dose series) Hepatitis B Vaccine (1 of 3 - 19+ 3-dose series) [facility] Start: 09-04-1991 Anxiety Screening Anxiety Screening [facility] Start: 09-04-1991 Depression Screening Depression Scre ening [facility] Start: 09-04-1991 HEPATITIS C SCREENING HEPATITIS C [facility] Start: 09-04-1991 Hepatitis C screening Hepatitis C [facility] Start: 09-04-1991 HIV SCREENING HIV SCREENING [facility] Start: 09-04-1991 HIV screening HIV Screening [facility] Start: 1985 Adult depression screening assessment DEPRESSION SCREENING [facility] Start: 1975 HEPATITIS B (1 of 3 - 3-dose series) HEPATITIS B (1 of 3 - 3-dose series) [facility] Start: 1975 Hepatitis B Vaccine (1 of 3 - 3-dose series) Hepatitis B Vaccine (1 of 3 - 3-dose series) [facility] End: 08-25-2023 EGD DIAGNOSTIC EGD DIAGNOSTIC Endoscopy Routine RUQ pain 1 Occurrences starting 08/24/2022 until 08/25/2023 [facility] Work Phone: Comment on above: 1 Occurrences starti ng 08/24/2022 until 08/25/2023 SURGICAL PATHOLOGY [facility] Work Phone: Comment on above: Release Upon Orderin g for 1 Occurrences starting 02/03/2023, 1 [facility] Immunizations Immunization Date Immunization Notes Care Provider Steffanie corral 10-23-2015 influenza virus vaccine, unspecified formulation Niko Perez MD Work Phone: [facility] 10-21-2015 tetanus toxoid, redu ulysses diphtheria toxoid, and acellular pertussis vaccine, adsorbed Violeta Ng BLOW UP OPERATOR.[facility] Work Phone: [facility] 01-16-2011 influenza virus vaccine, unspecified formulation Violeta Ng BLOW UP OPERATOR.DIRECTOR TRADE Work Phone: [facility] 12-10-2009 influenza virus vaccine, unspecified formulation Violeta Ng BLOW UP OPERATOR.[facility] Work Phone: [facility] Work Phone: 01-21-2009 novel [id number], all formulations Violeta Ng BLOW UP OPERATOR.[facility] Work Phone: [facility] Work Phone: 07-05-2007 tetanus and diphther ia toxoids, adsorbed, preservative free, for adult use (2 Lf of tetanus toxoid and 2 Lf of diphtheria toxoid) Violeta Ng BLOW UP OPERATOR.DIRECTOR TRADE Work Phone: [facility] Work Phone: 01-25-2007 influenza virus vaccine, unspecified formulation Violeta Ng BLOW UP OPERATOR.DIRECTOR TRADE Work Phone: [facility] Work Phone: 01-10-2006 influenza virus vaccine, unspecified formulation Violeta Ng APRN.[facility] Work Phone: [facility] Work Phone: Payers Date Payer Category Payer Self-pay 2022 Private Health Insurance [facility] CHOICE PLUS [id number] 2022-Present [phone] [address] [place] [address] HMO [id number] 2022 Private Health Insurance [id number] 2019 Unknown [id number] Unknown [id number] Unknown [id number] Unknown [id number] Unknown [id number] Unknown [id number] Unknown [id number] Unknown [id number] Unknown [id number] Unknown [id number] Unknown [id number] Social History Date Type Detail Facility Start: 11-29-2021 Tobacco smoking stat [facility] Never smoked tobacco [facility] Start: 11-29-2021 Tobacco use and exposure Smokeless tobacco non-user [facility] Start: 02-12-2020 End: 11-29-2021 Alcohol intake Current drinker of alcohol (finding) [facility] Start: 02-17-2016 History SDOH Alcohol Comment Occasionally [facility] Start: 1975 Sex Assigned At Female C [facility] Start: 01-13-2020 End: 12-07-2021 Exposure to SARS-CoV-2 (event) Not sure [facility] Start: 02-12-2020 End: 02-03-2023 History of Social function [facility] Start: 02-12-2020 End: 02-03-2023 Tobacco use panel [facility] National Score (1-10 0), lower number is lower risk 71 [facility] Start: 04-01-2020 Gender identity Identifies as female gender (finding) [facility] Clinical Notes 06-06-2012 to 01-01-2025 Telephone Encounter - Silvina Duron LPN - 05/12/2023 8:20 AM ESTTelephone Encounter - Silvina Duron LPN - 05/11/2023 10:56 AM ESTTelephone Encounter - Silvina Duron LPN - 02/08/2023 10:11 AM EST Note Date & Type Note Facility 01-01-2025 Note HNO ID: [id number] Author: JOCELINE SIMONS APRN.DIRECTOR TRADE Service: ? Author Type: Nurse Practitioner Type: Progress Notes Filed: 01/01/2025 11:22 Note Text: [facility]ENT [facility]ARE MARIO Corado is a 49 year old female. Patient presents with: Facial Swelling: left side facial swelling x 1 week, broken tooth low left HPI The patient is a 49-year-old female with Crohn's disease presenting with progressive facial swelling. The patient reports that the swelling began last week in the lower face and has since spread across the face. She describes a tingling sensation across the face but denies fever. She does not have a regular dentist and has been unable to find one who accepts her [employer] insurance. She was diagnosed with Crohn's disease within the past year and has not noticed any antibiotic-related flares. She reports allergies to penicillin and Bactrim, and possible intolerance to cephalexin, which caused fever and emesis on two separate occasions 1-2 years ago. Review of Systems Constitutional: (-) fever Head: (+) facial swelling Neurological: (+) facial tingling Psychiatric: (+) dental anxiety PAST MEDICAL HISTORY Diagnosis Date Esophagitis 01/2023 Leiomyoma of uterus, unspecified Peptic ulcer disease 01/2023 PMH - PAST MEDICAL HISTORY OF resp. issues with activity PAST SURGICAL HISTORY Procedure Laterality Date ABDOMINAL SURGERY HX COLONOSCOPY FLX DX W/COLLJ SPEC WHEN PFRMD 02/21/2012 Colonoscopy ESOPHAGOGASTRODUODENOSCOPY TRANSORAL DIAGNOSTIC 01/[address] Perez EXC CYST/ABERRANT BREAST TISSUE OPEN 1/> LESION 04/28/2006 LEFT BREAST MASS X 2 LAPAROSCOPY SURG CHOLECYSTECTOMY 05/16/2012 LIG/TRNSXJ FLP TUBE ABDL/VAG APPR UNI/BI 04/28/2006 Tubal ligation PAST SURGICAL HISTORY OF 1987,1993- BUNIONECTOMY PAST SURGICAL HISTORY OF 1990 RT. BREAST LUMPECTOMY SALPINGECTOMY Bilateral 07/08/2016 TONSILLECTOMY PRIMARY/SECONDARY Tonsillectomy VAGINAL HYSTERECTOMY UTERUS 250 GM/< 07/08/2016 ALLERGIES Bactrim [Sulfamethoxazole-Trimethoprim] and Penicillins MEDICATIONS clindamycin (CLEOCIN) 150 mg capsule Take 3 capsules by mouth three times a day for 5 days. omeprazole (PRILOSEC) 40 mg capsule Take 1 capsule by mouth once daily. (Patient not taking: Reported on 01/01/2025) FAMILY HISTORY Problem Relation Age of Onset Thyroid Mother Hyster for fibroids at 32 Heart Father Hypertension Father SOCIAL HISTORY[1] Objective BP 122/76 Pulse 80 Temp 36.1 ?C (96.9 ?F) Resp 16 Wt 97.6 kg (215 lb 2.7 oz) LMP (LMP Unknown) SpO2 99% BMI 35.81 kg/m? Physical Exam Constitutional: General: She is not in acute distress. Appearance: Normal appearance. She is normal weight. She is not ill-appearing or toxic-appearing. HENT: Head: Normocephalic and atraumatic. No right periorbital erythema. Jaw: No trismus, tenderness or swelling. Salivary Glands: Right salivary gland is not diffusely enlarged or tender. Left salivary gland is not diffusely enlarged or tender. Mouth/Throat: Mouth: Mucous membranes are moist. No oral lesions. Dentition: Abnormal dentition. Dental tenderness present. No dental caries. Pharynx: Uvula midline. Tonsils: No tonsillar exudate or tonsillar abscesses. Comments: Broken 19, mild erythema surrounding the tooth Eyes: Extraocular Movements: Extraocular movements intact. Conjunctiva/sclera: Conjunctivae normal. Pupils: Pupils are equal, round, and reactive to light. Cardiovascular: Rate and Rhythm: Normal rate and regular rhythm. Pulses: Normal pulses. Heart sounds: Normal heart sounds. Lymphadenopathy: Cervical: Cervical adenopathy present. Neurological: Mental Status: She is alert. { 1. Tooth infection (K04.7) - Facial swelling and paresthesia consistent with dental infection. - Allergies to penicillin and Bactrim; prior intolerance to cephalexin (fever, emesis). - Start clindamycin; discussed increased risk of C. difficile infection. Continue tylenol and ibuprofen for pain. - Advised use of probiotics or yogurt with antibiotics. - Instructed to return if symptoms worsen or if signs of C. difficile infection develop. - No signs of deep neck infection, SUPERVISOR CEREAL or ludwigs sign angina. - Follow up with Denist SANJU for further care and management. Any neck swelling or fevers seek emergency care. and Recording using Spoke software for draft documentation of the visit was discussed with the patient/authorized practice representative; all questions welcomed and answered. Patient/authorized practice representative agreed to proceed History and Record Review External record(s) reviewed: prior outpatient record. Findings from review of outpatient records: Previous medical history Disposition The patient was discharged. OTC Medications were advised: Tylenol and Ibuprofen [1] Social History Tobacco Use Smoking status: Never Smokeless tobacco: Never Vaping Use Vaping status: (more content not included)... [facility] 02-09-2024 Note [facility] Medical Records Department [address] [place] [address] History Physical Exam 02/09/24 0809 MR#: [id number] Acct: [id number] Name: RUTHIE CORADO Rep #: [id number] : 1975 48 From: [place] Friend PCP: Dr. Nicolas Colon MD Status:[facility] Location: [place] [address] History and Physical Date of Admission: 02/09/24 Chief Complaint: STOMACH PAIN e.r. f/u Details: RUTHIE CORADO, is a 48 F who presents to the office today for establishment with [facility] for complaints of right-sided abdominal pain, rated 6/10, with severe nausea brought on by eating for the last year. She denies difficulty chewing and swallowing, heartburn, reflux, vomiting. She reports abdominal bloating, cramping, pain, and urgency at times with diarrhea. She reports that she has a son with CF and is familiar with bowel clean out protocol but she wanted to be sure nothing else was wrong with her stomach before doing this. She denies fever, chills, and change in water supply. 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 She states that she has been eating a very bland diet to try to alleviate her symptoms. She prefers to not just take medicines for symptoms without knowing why the symptoms are there. She reports incomplete evacuation, has been seeing hematochezia, blood from within the stool, not laced around it. She denies melena and blood while wiping. She reports that her last colonoscopy was about 10 years ago to investigate LLQ abdominal pain. ROS Const Constitutional: Positive for fatigue; No chills or fever(s) Eyes Eyes: No change in vision ENT ENT: No abnormal hearing Resp Respiratory: No cough Cardio Cardiology: No chest pain at rest, chest pain with exertion or leg pain with exertion Gastro GI: Positive for abdominal pain, bloating, change in bowel habits, constipation, heartburn, excessive flatus, Blood in stool and nausea/dyspepsia Genitourinary-Female: No difficulty urinating Musc Musculoskeletal: Positive for back pain and muscle cramps; No leg pain with exertion Skin Skin: Positive for itchy eyes; No yellowing of the eye Neuro Neurology: No abnormal hearing Endo Endocrine: Positive for fatigue Aller/Imm Allergy/Immunologic: Positive for itchy eyes; No food intolerance Cristiano/Lymp Hematologic/Lymphatic: No easy bleeding or easy bruising Exam Const General: cooperative, healthy appearing, comfortable and no acute distress Nutritional Appearance: overweight Orientation: alert [facility] Head: normal to inspection Ears: hearing grossly normal bilaterally Nose: external nose normal Face and sinus: normal facial exam and face symmetric Eyes General: appearance normal, both eyes and all related structures Sclera: sclerae normal Neck Neck: normal visual inspection and full ROM Neck mass: No Chest Chest palpation inspection: normal inspection of the chest Resp Effort Inspection: normal respiratory effort, able to speak in complete sentences and symmetric chest movement GI Inspection: distended Skin General: no rashes or lesions noted Neuro General: patient alert, patient awake, patient oriented x3 and moves all extremities Cognition: normal cognition Speech: speech normal Gait: normal gait Extrem General: full ROM Psych Appearance: well kempt Mental Status: mental status grossly normal Mood: congruent mood Affect: normal affect Speech and Movement: speech and movement normal Attitude: cooperative Thought Process: normal Assessment and Plan Assessment and Plan (1) Irritable bowel syndrome with mixed bowel habits: Status: Acute Plan: RUTHIE CORADO, is a 48 F who presents to the office today for establishment with [facility] for complaints of right-sided abdominal pain, rated 6/10, with severe nausea brought on by eating for the last year. Differential diagnoses include: IBS-C, IBS-M, IBD, CIC, colonic dysmotility, gastric dysmotility. Discussed plan with her. * blood for IBS/D, inflammatory, thyroid, food allergy * stool for inflammatory, enzyme, enteric markers * colonoscopy to investigate hematochezia * GET after the new year * bowel prep instructions now * call with results * office follow-up 3 months(2) Abdominal pain: Status: Acute Qualifiers: Abdominal location: generalized Qualified Code(s): R10.84 - Generalized abdominal pain (3) Constipation: Status: Acute Qualifiers: Constipation type: unspecified constipation type Qualified Code(s): K59.00 - Constipation, unspecified Orders: Orders Allergen, Food Profile 14 Today K58.2 - Mixed irritable bowel syndrome, K59.00 - Constipation, unspecified CRP Today K58.2 - Mixed irritable bowel syndrome, K59.00 - Constipation, unspecified Immunoglobulins G/A/M/E Today K58.2 - Mixed irritable bowel syndrome, K59.00 - Constipation, (more content not included)... [facility] 05-12-2023 Miscellaneous Notes Images from the original note were not included. Endoscopy report and last office visit sent to physician requested by patient. No referral in epic to send. Silvina Duron LPN May 12, 2023 8:22 AM Niko Perez MD You 11 hours ago (8:31 PM) The doctor named is not a [facility] doctor. Please print our Dr. Jonesborough's note and my endoscopy report and fax to the GI office You Niko Perez MD 18 hours ago (1:54 PM) SB No consult to gastro in [facility]. Please sign pended order. Silvina Duron LPN You routed conversation to Niko Perez MD 18 hours ago (1:54 PM) Niko Perez MD You 18 hours ago (1:19 PM) Please fax last note and referral to that stave bolt equalizer Patient called, verified name and date of , regarding last egd. Patient was seen by Abimbola 08/24/22 d/t RUQ pain, plan was to EGD. EGD done 02/08/23 with Ana, diagnosis was peptic ulcer disease/ esophagitis. Patient states she was told to follow up with stave bolt equalizer and needs referral faxed over. Dr. Charbel Shelley [phone] (fax) Please place order, nurse will fax. Silvina Duron LPN May 11, 2023 10:59 AM documented in this encounter [facility] 02-08-2023 Miscellaneous Notes Medical/ Surgical history updated. Silvina Duron LPN documented in this encounter [facility] 02-08-2023 Miscellaneous Notes FOLLOW UP ENDOSCOPY - RESULTS AND RECOMMENDATIONS NAME: Ruthie Corado CLINIC NO.: [id number] : 1975 DATE: February 08, 2023 PRIMARY CARE PROVIDER: Nicolas Colon MD REFERRING PHYSICIAN: Shaheen Corado is a patient referred for endoscopy for right upper quadrant pain in a patient who had a previous cholecystectomy. I performed upper endoscopy on February 03, 2023. The patient was found to have: Upper Endoscopy Impression: - Normal examined jejunum. Biopsied. - Normal. - Gastritis. Biopsied. - Mildly severe reflux esophagitis with no bleeding. Biopsied. - Normal middle third of esophagus. Biopsied. Pathology demonstrated: FINAL DIAGNOSIS A. Jejunum, biopsy: - Small intestinal mucosa with no pathologic diagnostic abnormality; negative for celiac disease, granulomas or dysplasia. B. Stomach, antrum, biopsy: - Gastric oxyntic type mucosa with no pathologic diagnostic abnormality; see comment. C. Esophagus, lower, biopsy: - Gastric mucosa with slight chronic inflammation and foveolar hyperplasia; negative for squamous mucosa, intestinal metaplasia or dysplasia. D. Esophagus, mid, biopsy: - Squamous mucosa with no pathologic diagnostic abnormality; negative for intraepithelial eosinophils. I started the patient on Prilosec 40 mg/day. IMPRESSION: Gastritis and esophagitis PLAN: INSTRUCTIONS FOR PEPTIC ULCER DISEASE - ESOPHAGITIS I discussed with you the findings of your upper endoscopy. Your upper endoscopy demonstrated esophagitis Esophagitis may be a form of peptic irritation, with acid moving from the stomach to the esophagus (gastroesophageal reflux) Factors that increase acid production include smoking and stress. If you smoke, stopping smoking will often cure these issues without needing other medications. Over the counter medications including antiacids and acid reducing medications including H2 blockers (Zantac and the like) and proton pump inhibitors (prilosec, prevacid and the like) neutralize or prevent acid production. Prescription strength proton pump inhibitors (PPIs) may be necessary if your symptoms persist. Carafate may be added to PPI treatment in refractory cases. Avoiding smoking, alcohol and antiinflammatory medications are important in the successful treatment of reflux esophagitis and peptic diseases. Other factors that contribute to GERD and esophagitis are being overweight, eating large meals before laying down and certain foods. Weight loss will help improve many GERD complaints. Remaining upright after eating large meals and having a small supper will also help symptoms. Avoiding food that contribute to reflux - chocolate, caffeine, cheddar cheese may also help. Follow up upper endoscopy may be recommended to assure healing of the esophagus. New or worsening symptoms such are epigastric pain, burning, difficulty swallowing or food sticking should be relayed to your physician. Feeling full early after eating, or black, tarry, foul smelling stools are also worrisome. If you have any difficulties or concerns, you should contact our office immediately. The patient is instructed to follow-up with your primary care provider as needed I have instructed my staff to forward the above information to the patient and to the appropriate providers documented in this encounter [facility] 02-03-[address] Perez notified that prescription for omeprazole has not been sent to a pharmacy, patient requests it be sent to [facility] in [place]. Patient received in phase II via cart in left lateral position, eyes closed but open to verbal stimuli, skin warm and dry, respirations regular and unlabored, denies pain in throat or chest, denies nausea. Resting comfortably on left side, HOB elevated at 30 degrees. documented in this encounter [facility] 08-30-2022 History of Present illness Narrative HISTORY AND PHYSICAL Ruthie Corado 1975 REFERRING PHYSICIAN: No ref. provider found CHIEF COMPLAINT: Consult (Right side flank pain) HPI: The patient is a 46 year old female referred for endoscopy. Ruthie notes no history of colon complaints. The patient notes the following upper complaints: Ruthie notes abdominal pain. Patient states that she has had right-sided abdominal pain over the last several weeks. Describes it is constant over the right upper quadrant wraps around to her back. Describes it as achy crampy sharp and stabbing at times. Patient states it is worse after eating but not always. Patient really does not know what makes it better. Patient admits to some nausea but denies vomiting. She has had no diarrhea melena or hematochezia.. . Ruthie denies heartburn. Ruthie denies dysphagia. Ruthie denies a history of ulcers/ peptic ulcer disease. Ruthie has not undergone prior endoscopy. PAST MEDICAL HISTORY Diagnosis Date Leiomyoma of uterus, unspecified PMH - PAST MEDICAL HISTORY OF resp. issues with activity PAST SURGICAL HISTORY Procedure Laterality Date COLONOSCOPY FLX DX W/COLLJ SPEC WHEN PFRMD 02/21/12 Colonoscopy EXC CYST/ABERRANT BREAST TISSUE OPEN 1/> LESION 04/28/06 LEFT BREAST MASS X 2 LAPAROSCOPY SURG CHOLECYSTECTOMY 05-16-12 LIG/TRNSXJ FLP TUBE ABDL/VAG APPR UNI/BI 04/28/2006 Tubal ligation PAST SURGICAL HISTORY OF 1987,1993- BUNIONECTOMY PAST SURGICAL HISTORY OF 1990 RT. BREAST LUMPECTOMY SALPINGECTOMY Bilateral 07/08/2016 TONSILLECTOMY PRIMARY/SECONDARY <AGE 10 Tonsillectomy VAGINAL HYSTERECTOMY UTERUS 250 GM/< 07/08/2016 No current outpatient medications on file. No current facility-administered medications for this visit. ALLERGIES: Bactrim [Sulfamethoxazole-Trimethoprim] and Penicillins PERSONAL HISTORY: Social History Tobacco Use Smoking status: Never Smokeless tobacco: Never Vaping Use Vaping Use: Never used Substance Use Topics Alcohol use: Yes Comment: Occasionally Drug use: No FAMILY HISTORY: FAMILY HISTORY Problem Relation Age of Onset Thyroid Mother Hyster for fibroids at 32 Heart Father Hypertension Father REVIEW OF SYMPTOMS: The review of systems data was entered by the nurse and reviewed by me Nursing Notes: Carlota Driver LPN 08/24/2022 2:39 PM Signed REVIEW OF SYSTEMS: General: The patient notes fatigue, denies weight loss, notes weight gain, notes feeling hot, and denies feelings of cold. Eyes: The patient denies glaucoma, denies eye injury/surgery, does wear glasses or contacts. Ear/Nose/Throat: The patient denies allergies, denies hayfever, denies ear infections, and denies bloody noses. Cardiovascular: The patient denies chest pain, denies heart disease, denies high blood pressure,denies cardiac stent, denies prior heart attack, denies irregular heart beat, denies high cholesterol, denies poor circulation, denies heart failure, other cardiac issues, denies claudication, denies cold feet, denies peripheral arterial stent. Respiratory: The patient denies tuberculosis, denies pneumonia, denies frequent cough, denies pulmonary embolism, denies shortness of breath, and denies coughing up blood. Gastrointestinal: The patient denies difficulty swallowing, denies acid reflux, denies ulcers, denies vomiting, denies jaundice/hepatitis, notes gallbladder problems, denies black or tarry stools, denies hemorrhoids, denies bleeding from rectum, denies diverticulitis, denies constipation, denies diarrhea, denies loss of stool control, and denies hernias. Kidney/Bladder: The patient denies kidney stones, denies urine infections, and denies bloody urine. Skin: The patient denies a history of skin cancer, denies bleeding/changing moles, and denies a history of skin rash. Neurologic: The patient denies a history of epilepsy/convulsions, notes headaches, denies head/spinal injuries, and denies stroke/TIA. Psychiatric: The patient denies psychiatric medications, denies depression, and denies voices, denies substance abuse. Endocrine: The patient denies thyroid disorders, denies diabetes, and denies hormonal problems. Hematologic: The patient denies a history of bruising, denies bleeding, and denies anemia, denies blood clots. Infections: The patient denies a history of measles and mumps, denies rheumatic fever, and denies sexually transmitted diseases. Musculoskeletal: The patient denies back pain/injury, denies back problems, denies sciatica, denies knee/foot trouble, denies arthritis, or denies gout. When was patient's last Mammogram screening? 2020 Last Colonoscopy: over 10 years Carlota Driver LPN PHYSICAL EXAMINATION: General: The patient is 46 year old female, well nourished, well hydrated in no acute distress. The patient is oriented to time, place, and person. VITALS: Blood pressure 108/68, pulse 91, temperature 36.5 C (97.7 F), height 165.1 cm (5' 5"), weight 91.2 kg (201 lb), SpO2 97 %. Body mass index is 33.45 kg/m . HEENT: Normal cephalic, ataumatic, pupils are equally round, sclera are anicteric, mucous membranes are moist, oropharynx is clear. Neck has no masses, asymmetry or lymphadenopathy. Thyroid is unremarkable. Respiratory: Clear to auscultation and percussion. Normal respiratory excursion and pattern. Cardiac: Examination is regular rate and rhythm. Abdominal exam: Soft, nontender, with no palpable masses. No hepatosplenomegaly. No palpable hernias. Rectal exam: exam deferred Extremities: no clubbing, cyanosis or edema. No adenopathy. Other: LABORATORY VALUES: As Noted RADIOLOGIC STUDIES: As Noted Assessment IMPRESSION: Ruq pain (primary encounter diagnosis) PLAN: I plan to perform upper endoscopy. We discussed the risks and benefits of the planned endoscopy. I have informed the patient that complications can occur including failure to complete the endoscopy and perforation. The patient had the opportunity to ask questions concerning the planned endoscopy. My staff has also explained the procedure to the patient in understandable terms and has given the patient printed material concerning the procedure. The patient freely consents to surgery. Diagnoses: (R10.11) RUQ pain (primary encounter diagnosis) Return to Clinic: The patient is instructed to follow-up with me 1 week post operatively. Ortiz Daily III, MD documented in this encounter [facility] 08-24-2022 Nurse Note REVIEW OF SYSTEMS: General: The patient notes fatigue, denies weight loss, notes weight gain, notes feeling hot, and denies feelings of cold. Eyes: The patient denies glaucoma, denies eye injury/surgery, does wear glasses or contacts. Ear/Nose/Throat: The patient denies allergies, denies hayfever, denies ear infections, and denies bloody noses. Cardiovascular: The patient denies chest pain, denies heart disease, denies high blood pressure,denies cardiac stent, denies prior heart attack, denies irregular heart beat, denies high cholesterol, denies poor circulation, denies heart failure, other cardiac issues, denies claudication, denies cold feet, denies peripheral arterial stent. Respiratory: The patient denies tuberculosis, denies pneumonia, denies frequent cough, denies pulmonary embolism, denies shortness of breath, and denies coughing up blood. Gastrointestinal: The patient denies difficulty swallowing, denies acid reflux, denies ulcers, denies vomiting, denies jaundice/hepatitis, notes gallbladder problems, denies black or tarry stools, denies hemorrhoids, denies bleeding from rectum, denies diverticulitis, denies constipation, denies diarrhea, denies loss of stool control, and denies hernias. Kidney/Bladder: The patient denies kidney stones, denies urine infections, and denies bloody urine. Skin: The patient denies a history of skin cancer, denies bleeding/changing moles, and denies a history of skin rash. Neurologic: The patient denies a history of epilepsy/convulsions, notes headaches, denies head/spinal injuries, and denies stroke/TIA. Psychiatric: The patient denies psychiatric medications, denies depression, and denies voices, denies substance abuse. Endocrine: The patient denies thyroid disorders, denies diabetes, and denies hormonal problems. Hematologic: The patient denies a history of bruising, denies bleeding, and denies anemia, denies blood clots. Infections: The patient denies a history of measles and mumps, denies rheumatic fever, and denies sexually transmitted diseases. Musculoskeletal: The patient denies back pain/injury, denies back problems, denies sciatica, denies knee/foot trouble, denies arthritis, or denies gout. When was patient's last Mammogram screening? 2020 Last Colonoscopy: over 10 years Carlota Driver LPN documented in this encounter [facility] 12-16-2021 Instructions Zan Hauser MD - 12/16/2021 1:25 PM EDT Images from the original note were not included. documented in this encounter [facility] 12-16-2021 History of Present illness Narrative Assessment and Plan 1. Hordeolum externum of left upper eyelid -element of preseptal cellulitis treated with keflex -now with external hordeolum treated with maxitrol ointment -rarely uses hot compresses Plan: -looking better -encouraged to use hot compresses more often -if not completely resolved in 2 weeks, to consider excision I have confirmed and edited as necessary the relevant ophthalmic history, ROS, and the neuro exam findings as obtained by others. I have seen and examined Ruthie Corado. I have discussed the case and the management of this patient's care with the Resident/Fellow, if applicable. I also have reviewed and agree with the assessment and plan as stated above and agree with all of its relevant components. Zan Hauser MD December 16, 2021 1:22 PM documented in this encounter [facility] 12-07-2021 History of Present illness Narrative (L03.213) Preseptal cellulitis of left upper eyelid (primary encounter diagnosis) (H00.014) Hordeolum externum of left upper eyelid Medications to Start Taking neomycin/polymyxin b/dexametha(MAXITROL 3.5 MG/G-10,000 UNIT/G-0.1 % EYE OINTMENT) Use 1 application in the left eye twice daily for 10 days. Use warm compresses 2-3 times daily when able to tolerate Follow-up in [address] Hauser for possible excision Keli Iqbal, OD December 07, 2021 9:26 AM documented in this encounter [facility] 12-07-2021 Instructions Keli Iqbal, OD - 12/07/2021 9:11 AM EDT Use warm compresses 2-3x daily Use Maxitrol ointment twice daily documented in this encounter [facility] 11-29-2021 History of Present illness Narrative Images from the original note were not included. Subjective Eye Problem Pertinent negatives include no chills, fever, headaches or myalgias. Ruthie Corado is a 46 year old female who presents with a stye on her left upper eyelid. It has been present for one month. She has been doing warm compresses a few times daily and in the last few days it has gotten larger and more tender. She has seen Dr. IqbalPpffpt-[id number]-grr this in the past. Treatment with oral cephalexin led to full resolution. She has not had a fever. She has some associated upper eyelid swelling. Review of Systems Constitutional: Negative for chills and fever. HENT: See HPI Eyes: Negative for blurred vision, double vision, photophobia, pain, discharge and redness. See HPI Musculoskeletal: Negative for myalgias. Neurological: Negative for headaches. BP 110/80 Pulse 70 Temp 36.4 C (97.6 F) Resp 16 Wt 92.5 kg (204 lb) LMP (LMP Unknown) SpO2 98% BMI 33.95 kg/m PAST MEDICAL HISTORY Diagnosis Date Leiomyoma of uterus, unspecified PMH - PAST MEDICAL HISTORY OF resp. issues with activity PAST SURGICAL HISTORY Procedure Laterality Date COLONOSCOPY FLX DX W/COLLJ SPEC WHEN PFRMD 02/21/12 Colonoscopy EXC CYST/ABERRANT BREAST TISSUE OPEN 1/> LESION 04/28/06 LEFT BREAST MASS X 2 LAPAROSCOPY SURG CHOLECYSTECTOMY 05-16-12 LIG/TRNSXJ FLP TUBE ABDL/VAG APPR UNI/BI 04/28/2006 Tubal ligation PAST SURGICAL HISTORY OF 1987,1993- BUNIONECTOMY PAST SURGICAL HISTORY OF 1990 RT. BREAST LUMPECTOMY SALPINGECTOMY Bilateral 07/08/2016 TONSILLECTOMY PRIMARY/SECONDARY <AGE 10 Tonsillectomy VAGINAL HYSTERECTOMY UTERUS 250 GM/< 07/08/2016 ALLERGIES Bactrim [Sulfamethoxazole-Trimethoprim] and Penicillins MEDICATIONS cephALEXin (KEFLEX) 500 mg capsule Take 1 capsule by mouth three times daily for 10 days. FAMILY HISTORY Problem Relation Age of Onset Thyroid Mother Hyster for fibroids at 32 Heart Father Hypertension Father Social History Tobacco Use Smoking status: Never Smokeless tobacco: Never Substance Use Topics Alcohol use: Yes Comment: Occasionally Drug use: No Objective Physical Exam Vitals and nursing note reviewed. Constitutional: Appearance: Normal appearance. Eyes: General: Vision grossly intact. Comments: Patient has erythema and swelling to the left upper eyelid. She is able to open the eyelid. Stye is tender to palpation. No significant obvious swelling to the face. Right eye exam unremarkable. PERRLA and EOMI Neurological: Mental Status: She is alert. ASSESSMENT/PLAN: 1. Hordeolum externum of left upper eyelid - ICD9: 373.11, ICD10: H00.014 - continue warm compresses - CEPHALEXIN 500 MG CAPSULE - Follow-up with Dr. Iqbal in 3 days if symptoms have not improved or sooner if symptoms worsen - Discussed red flags and need for immediate medical evaluation if any occur. - Discussed supportive care treatment with fluids, rest and analgesia. - Discussed expected course of illness Violeta Garcia-LIZZY Vargas.DIRECTOR TRADE documented in this encounter [facility] 11-29-2021 Instructions Violeta Ng APRN.CNP - 11/29/2021 11:12 AM EDT ASSESSMENT/PLAN: 1. Hordeolum externum of left upper eyelid - ICD9: 373.11, ICD10: H00.014 - continue warm compresses - CEPHALEXIN 500 MG CAPSULE - Follow-up with Dr. Iqbal in 3 days if symptoms have not improved or sooner if symptoms worsen - Discussed red flags and need for immediate medical evaluation if any occur. - Discussed supportive care treatment with fluids, rest and analgesia. - Discussed expected course of illness Violeta Ng APRN.CNP STY: You have a sty, an infection of one of the tiny glands located on the eyelid. A sty takes several days to develop. It usually forms a small abscess along the edge of the eyelid. The pus that forms in the infected gland must drain for the sty to heal. A sty is treated by applying warm moist compresses to the eye for 15 minutes three times daily until it drains and the swelling and redness are gone. Some sties require surgical drainage. Antibiotic eye drops may be needed if the infection spreads to other areas of the eye. Please see your doctor if your eye is not better after 3 days of treatment. Return immediately of see your doctor for any fever or loss of vision. documented in this encounter [facility] 02-12-2020 History of Present illness Narrative Radiology Service Progress Note PATIENT NAME: Ruthie Corado DATE OF SERVICE: February 12, 2020 TIME: 5:50 PM PATIENT IDENTITY VERIFICATION COMPLETED USING TWO (2) IDENTIFIERS: Name and Date of confirmed by patient verbally. FALL SCREENING: Has the patient had 2 falls in the last year or 1 fall with injury or currently using an Ambulatory Assistive Device (Walker, Cane, Wheelchair, Crutches, etc.)? No PATIENT GENDER DATA: Female. status: : No status: NO. PATIENT RELEVANT IMPLANT DATA REVIEWED: Not Applicable RADIOLOGY DEPARTMENT: General X-ray: Exam(s) Completed: Lower Extremity X-Ray(s): Foot, Left and Wt. Bearing: PERIPHERAL IV DATA: Not applicable SIGNED BY: RT Rubio February 12, 2020 5:50 PM documented in this encounter [facility] 06-06-2012 History of Past i llness Narrative Problem Noted Date Resolved Date Chronic cholecystitis with calculus 06/06/2012 02/17/2016 Abnormal uterine bleeding 02/02/20122016 Excessive or frequent menstruation 06/03/2008 02/02/2012 Irregular menstrual cycle 06/03/20082011 Unspecified symptom associated with female genit al organs 06/03/2008 02/02/2012 Brachial neuritis or radiculitis NOS 05/27/2008 02/17/2016 Overview: C7 on the R as of 05-13: negative for Carpal Tunnel (Jeison Gerber) and 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) Routine General Medical Exam ination at a Health Care Facility 07/05/2007 02/02/2012 Overview: Father with CAD and COPD-smoker, WPW Mother with thyroid issues, smoker ED 02-10-08 for HUFF: head CT negative, treated with Benadryl and Compazine Bactrim S E coli UTI in 11-13: repeated course with Cipro in 12-13 Anxiety state, unspecified 07/05/200702/16 Overview: Issues related to 1 year old with CF: help from , better sleep habits, more time for self More problematic as of 06-12 given two hospitalizations of her son with C diff Presents with urticaria on the hands, sleep issues, hair thinning as of 06-12 Pt only getting about 5-6 hours of sleep per night TSH 1.45 in 07-12 Trial of Paxil 10 mg as of 06-12: intolerant as of 10-12 documented as of this encounter (statuses as of 11/29/2021) [facility] History of Past illness Narrative* Problem Noted Date Resolved Date Chronic cholecystitis with calculus 06/06/2012 02/17/2016 Abnormal uterine bleeding 02/02/20122016 Excessive or frequent menstruation 06/03/2008 02/02/2012 Irregular menstrual cycle 06/03/20082011 Unspecified symptom associated with female genit al organs 06/03/2008 02/02/2012 Brachial neuritis or radiculitis NOS 05/27/2008 02/17/2016 Overview: C7 on the R as of 05-13: negative for Carpal Tunnel (Jeison Gerber) and 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) Routine General Medical Exam ination at a Health Care Facility 07/05/2007 02/02/2012 Overview: Father with CAD and COPD-smoker, WPW Mother with thyroid issues, smoker ED 02-10-08 for HUFF: head CT negative, treated with Benadryl and Compazine Bactrim S E coli UTI in 11-13: repeated course with Cipro in 12-13 Anxiety state, unspecified 07/05/200702/16 Overview: Issues related to 1 year old with CF: help from , better sleep habits, more time for self More problematic as of 06-12 given two hospitalizations of her son with C diff Presents with urticaria on the hands, sleep issues, hair thinning as of 06-12 Pt only getting about 5-6 hours of sleep per night TSH 1.45 in 07-12 Trial of Paxil 10 mg as of 06-12: intolerant as of 10-12 documented as of this encounter (statuses as of 12/07/2021) [facility] History of Past illness Narrative* Problem Noted Date Resolved Date Chronic cholecystitis with calculus 06/06/2012 02/17/2016 Abnormal uterine bleeding 02/02/20122016 Excessive or frequent menstruation 06/03/2008 02/02/2012 Irregular menstrual cycle 06/03/20082011 Unspecified symptom associated with female genit al organs 06/03/2008 02/02/2012 Brachial neuritis or radiculitis NOS 05/27/2008 02/17/2016 Overview: C7 on the R as of 05-13: negative for Carpal Tunnel (Jeison Gerber) and 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) Routine General Medical Exam ination at a Health Care Facility 07/05/2007 02/02/2012 Overview: Father with CAD and COPD-smoker, WPW Mother with thyroid issues, smoker ED 02-10-08 for HUFF: head CT negative, treated with Benadryl and Compazine Bactrim S E coli UTI in 11-13: repeated course with Cipro in 12-13 Anxiety state, unspecified 07/05/200702/16 Overview: Issues related to 1 year old with CF: help from , better sleep habits, more time for self More problematic as of 06-12 given two hospitalizations of her son with C diff Presents with urticaria on the hands, sleep issues, hair thinning as of 06-12 Pt only getting about 5-6 hours of sleep per night TSH 1.45 in 07-12 Trial of Paxil 10 mg as of 06-12: intolerant as of 10-12 documented as of this encounter (statuses as of 12/16/2021) [facility] History of Past illness Narrative* Problem Noted Date Resolved Date Chronic cholecystitis with calculus 06/06/2012 02/17/2016 Abnormal uterine bleeding 02/02/20122016 Excessive or frequent menstruation 06/03/2008 02/02/2012 Irregular menstrual cycle 06/03/20082011 Unspecified symptom associated with female genit al organs 06/03/2008 02/02/2012 Brachial neuritis or radiculitis NOS 05/27/2008 02/17/2016 Overview: C7 on the R as of 05-13: negative for Carpal Tunnel (Jeison Gerber) and 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) Routine General Medical Exam ination at a Health Care Facility 07/05/2007 02/02/2012 Overview: Father with CAD and COPD-smoker, WPW Mother with thyroid issues, smoker ED 02-10-08 for HUFF: head CT negative, treated with Benadryl and Compazine Bactrim S E coli UTI in 11-13: repeated course with Cipro in 12-13 Anxiety state, unspecified 07/05/200702/16 Overview: Issues related to 1 year old with CF: help from , better sleep habits, more time for self More problematic as of 06-12 given two hospitalizations of her son with C diff Presents with urticaria on the hands, sleep issues, hair thinning as of 06-12 Pt only getting about 5-6 hours of sleep per night TSH 1.45 in 07-12 Trial of Paxil 10 mg as of 06-12: intolerant as of 10-12 documented as of this encounter (statuses as of 08/30/2022) [facility] History of Past illness Narrative* Problem Noted Date Diagnosed Date Resolved Date Chronic cholecystitis with calculus 06/06/2012 02/17/2016 Abnormal uterine bleeding 02/02/2012 Excessive or frequent menstruation 06/03/2008 02/02/2012 Irregular menstrual cycle 06/03/2008 Unspecified symptom associat ed with female genital organs 06/03/2008 02/02/2012 Brachial neuritis or radiculitis NOS 05/27/2008 02/17/2016 Overview: C7 on the R as of 05-13: negative for Carpal Tunnel (Jeison Gerber) and 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) Routine General Medical Exam ination at a Health Care Facility 07/05/2007 02/02/2012 Overview: Father with CAD and COPD-smoker, WPW Mother with thyroid issues, smoker ED 02-10-08 for HUFF: head CT negative, treated with Benadryl and Compazine Bactrim S E coli UTI in 11-13: repeated course with Cipro in 12-13 Anxiety state, unspecified 07/05/2007 1 04/19/2015 Overview: Issues related to 1 year old with CF: help from , better sleep habits, more time for self More problematic as of 06-12 given two hospitalizations of her son with C diff Presents with urticaria on the hands, sleep issues, hair thinning as of 06-12 Pt only getting about 5-6 hours of sleep per night TSH 1.45 in 07-12 Trial of Paxil 10 mg as of 06-12: intolerant as of 10-12 documented as of this encounter (statuses as of 02/04/2023) [facility] History of Past illness Narrative* Problem Noted Date Diagnosed Date Resolved Date Chronic cholecystitis with calculus 06/06/2012 02/17/2016 Abnormal uterine bleeding 02/02/2012 Excessive or frequent menstruation 06/03/2008 02/02/2012 Irregular menstrual cycle 06/03/2008 Unspecified symptom associat ed with female genital organs 06/03/2008 02/02/2012 Brachial neuritis or radiculitis NOS 05/27/2008 02/17/2016 Overview: C7 on the R as of 05-13: negative for Carpal Tunnel (Jeison Gerber) and 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) Routine General Medical Exam ination at a Health Care Facility 07/05/2007 02/02/2012 Overview: Father with CAD and COPD-smoker, WPW Mother with thyroid issues, smoker ED 02-10-08 for HUFF: head CT negative, treated with Benadryl and Compazine Bactrim S E coli UTI in 11-13: repeated course with Cipro in 12-13 Anxiety state, unspecified 07/05/2007 1 04/19/2015 Overview: Issues related to 1 year old with CF: help from , better sleep habits, more time for self More problematic as of 06-12 given two hospitalizations of her son with C diff Presents with urticaria on the hands, sleep issues, hair thinning as of 06-12 Pt only getting about 5-6 hours of sleep per night TSH 1.45 in 07-12 Trial of Paxil 10 mg as of 06-12: intolerant as of 10-12 documented as of this encounter (statuses as of 02/08/2023) [facility] History of Past illness Narrative* Problem Noted Date Diagnosed Date Resolved Date Chronic cholecystitis with calculus 06/06/2012 02/17/2016 Abnormal uterine bleeding 02/02/2012 Excessive or frequent menstruation 06/03/2008 02/02/2012 Irregular menstrual cycle 06/03/2008 Unspecified symptom associat ed with female genital organs 06/03/2008 02/02/2012 Brachial neuritis or radiculitis NOS 05/27/2008 02/17/2016 Overview: C7 on the R as of 05-13: negative for Carpal Tunnel (Jeison Gerber) and 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) Routine General Medical Exam ination at a Health Care Facility 07/05/2007 02/02/2012 Overview: Father with CAD and COPD-smoker, WPW Mother with thyroid issues, smoker ED 02-10-08 for HUFF: head CT negative, treated with Benadryl and Compazine Bactrim S E coli UTI in 11-13: repeated course with Cipro in 12-13 Anxiety state, unspecified 07/05/2007 1 04/19/2015 Overview: Issues related to 1 year old with CF: help from , better sleep habits, more time for self More problematic as of 06-12 given two hospitalizations of her son with C diff Presents with urticaria on the hands, sleep issues, hair thinning as of 06-12 Pt only getting about 5-6 hours of sleep per night TSH 1.45 in 07-12 Trial of Paxil 10 mg as of 06-12: intolerant as of 10-12 documented as of this encounter (statuses as of 02/08/2023) [facility] History of Past illness Narrative* Problem Noted Date Diagnosed Date Resolved Date Chronic cholecystitis with calculus 06/06/2012 02/17/2016 Abnormal uterine bleeding 02/02/2012 Excessive or frequent menstruation 06/03/2008 02/02/2012 Irregular menstrual cycle 06/03/2008 Unspecified symptom associat ed with female genital organs 06/03/2008 02/02/2012 Brachial neuritis or radiculitis NOS 05/27/2008 02/17/2016 Overview: C7 on the R as of 05-13: negative for Carpal Tunnel (Ejison Gerber) and 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) Routine General Medical Exam ination at a Health Care Facility 07/05/2007 02/02/2012 Overview: Father with CAD and COPD-smoker, WPW Mother with thyroid issues, smoker ED 02-10-08 for HUFF: head CT negative, treated with Benadryl and Compazine Bactrim S E coli UTI in 11-13: repeated course with Cipro in 12-13 Anxiety state, unspecified 07/05/2007 1 04/19/2015 Overview: Issues related to 1 year old with CF: help from , better sleep habits, more time for self More problematic as of 06-12 given two hospitalizations of her son with C diff Presents with urticaria on the hands, sleep issues, hair thinning as of 06-12 Pt only getting about 5-6 hours of sleep per night TSH 1.45 in 07-12 Trial of Paxil 10 mg as of 06-12: intolerant as of 10-12 documented as of this encounter (statuses as of 05/23/2023) [facility] Hordeolum externum of left upper eyelid- Primary Hordeolum externum [facility] [place] [facility] Diagnosis Preseptal cellulitis of left upper eyelid- Primary Hordeolum externum of left upper eyelid [facility]deolum externum [facility] Diagnosis RUQ pain- Primary Abdominal pain, right upper quadrant [facility] [place] [facility] Diagnosis RUQ pain Abdominal pain, right upper quadrant Heartburn documented in this encounter [facility] for referral (narrative)* Outpatient Procedure (Routine) - Authorized Specialty Diagnoses / Procedures Referred By Michael t Referred To Contact [facility] Diagnoses RUQ pain Procedures EGD DIAGNOSTIC ESOPHAGOGASTRODUODENOSC OPY TRANSORAL DIAGNOSTIC Ortiz Daily MD [address] [place] [address] [facility] [place] [address] [place] [address] Referral ID Status Reason Start Date Expiration Date Visits Requested Visits Authorized [id number] Authorized Auto-Generat ed Referral 08/24/2022 08/25/2023 1 1 [facility] for referral (narrative)* Outpatient Procedure (Routine) - Closed Specialty Diagnoses / Procedures Referred By Contac t Referred To Contact [facility] Diagnoses RUQ pain Procedures EGD DIAGNOSTIC ESOPHAGOGASTRODUODENOSC OPY TRANSORAL DIAGNOSTIC Ortiz Daily MD [address] [place] [address] [place] [phone] Referral ID Status Reason Start Date Expiration Date V isits Requested Visits Authorized [id number] Closed Auto-Generat ed Referral Patient Cleared - Admin/Chairm an/Director advise to proceed or did not respond 12/28/2022 03/06/2023 1 1 [facility] for visit Narrative* Outpatient Procedure (Routine) - Closed Specialty Diagnoses / Procedures Referred By Contcurt t Referred To Contact [facility] Diagnoses RUQ pain Procedures EGD DIAGNOSTIC ESOPHAGOGASTRODUODENOSC OPY TRANSORAL DIAGNOSTIC Ortiz Daily MD [address] [place] [address] [address] Referral ID Status Reason Start Date Expiration Date V isits Requested Visits Authorized [id number] Closed Auto-Generat ed Referral Patient Cleared - Admin/Chairm an/Director advise to proceed or did not respond 12/28/2022 03/06/2023 1 1 [facility] Medications Administered Section Inactive Administered Medications - up to 3 most recent administrations Medication Order MAR Action Action Date Dose Rate Site benzocaine 20% 1 [place] (TOPEX) 1 [place], TOPICAL, DIRECTED, Starting on Julianna 02/03/23 at 1130, Until [place] 02/03/23 at 1529, Dosing as directed for intraprocedural use only - Pharmaceutical Waste: Aerosol -, Intraprocedure Given by LIP 02/03/2023 11:34 AM EST 5 Sprays fentaNYL 50 mcg/mL 25-100 mcg injection (SUBLIMAZE) 25-100 mcg, INTRAVENOUS, DIRECTED, Starting on [place] 02/03/23 at 1130, Until [place] 02/03/23 at 1529, DOSING DIRECTED BY PHYSICIAN FOR PROCEDURAL SEDATION ONLY, Intraprocedure Given by LIP 02/03/2023 11:38 AM EST 50 mcg Given by LIP 02/03/2023 11:36 AM EST 50 mcg lactated ringers iv infusion 30 mL/hr, INTRAVENOUS, CONTINUOUS, Starting on Julian[place] 02/03/23 at 1030, Until [place] 02/03/23 at 1157, Preprocedure New Bag/Syringe/Bottle 02/03/2023 10:27 AM EST 30 mL/hr 30 mL/hr Hand, Right midazolam 1-5 mg injection (VERSED) 1-5 mg, INTRAVENOUS, DIRECTED, Starting on [place] 02/03/23 at 1130, Until [place] 02/03/23 at 1529, DOSING DIRECTED BY PHYSICIAN FOR PROCEDURAL SEDATION ONLY, Intraprocedure Given by [facility] 02/03/2023 11:38 AM EST 2 mg Given by [facility] 02/03/2023 11:36 AM EST 3 mg Summary Purpose Family History No Family History Records FoundNo Family History Records Found Advance Directives No Advanced Directives Records FoundNo Advanced Directives Records Found Additional Source Comments Source Comments (unrecognize d section and content) In the event this informatio n is protected by the Federal Confidentiality of Alcohol and Drug Abuse Patient Records regulations: The Federal rules restrict any use of the information to criminally investigate or prosecute any alcohol or drug abuse patient.[facility] event this information is protected by the Federal Confidentiality of Alcohol and Drug Abuse Patient Records regulations: The Federal rules restrict any use of the information to criminally investigate or prosecute any alcohol or drug abuse patient.[facility] the event this information is protected by the Federal Confidentiality of Alcohol and Drug Abuse Patient Records regulations: The Federal rules restrict any use of the information to criminally investigate or prosecute any alcohol or drug abuse patient.[facility] the event this information is protected by the Federal Confidentiality of Alcohol and Drug Abuse Patient Records regulations: The Federal rules restrict any use of the information to criminally investigate or prosecute any alcohol or drug abuse patient.[facility] the event this information is protected by the Federal Confidentiality of Alcohol and Drug Abuse Patient Records regulations: The Federal rules restrict any use of the information to criminally investigate or prosecute any alcohol or drug abuse patient.[facility] the event this information is protected by the Federal Confidentiality of Alcohol and Drug Abuse Patient Records regulations: The Federal rules restrict any use of the information to criminally investigate or prosecute any alcohol or drug abuse patient.[facility] the event this information is protected by the Federal Confidentiality of Alcohol and Drug Abuse Patient Records regulations: The Federal rules restrict any use of the information to criminally investigate or prosecute any alcohol or drug abuse patient.[facility] the event this information is protected by the Federal Confidentiality of Alcohol and Drug Abuse Patient Records regulations: The Federal rules restrict any use of the information to criminally investigate or prosecute any alcohol or drug abuse patient.[facility] the event this information is protected by the Federal Confidentiality of Alcohol and Drug Abuse Patient Records regulations: The Federal rules restrict any use of the information to criminally investigate or prosecute any alcohol or drug abuse patient.[facility] Reason for Visit (unrecogniz ed section and content) Reason Comments Eye Problem Left eye Reason Comments Eye Pain Left Eye Mostly on the upper left eyelid. And surrounding areas Swelling Around Left Eye Mostly upper le ft eyelid Reason Comments Hordeolum Evaluation Left upper lid Reason Comments Consult Right side flank eduar n Reason Comments Results Reason Comments Orders Dynamic Balancer r 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 Start Date End Date Nicolas Colon MD [address] [facility] [address] [place] [address] PCP - General Internal Medicine 08/04/22 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 This clinical summary was aggregated from multiple sources. Caution should be exercised in using it in the provision of clinical care. This summary normalizes information from multiple sources, and as a consequence, information in this document may materially change the coding, format and clinical context of patient data. In addition, data may be omitted in some cases. CLINICAL DECISIONS SHOULD BE BASED ON THE PRIMARY CLINICAL RECORDS. [employer] [facility]. provides no warranty or guarantee of the accuracy or completeness of information in this document.
== END 2025-01-16 20:20 | disposition left against medical advice (07) ==
LOC: ED 20:22
PROVIDERS: PCP Internal Medicine
DX: Z53.21 Procedure and treatment not carried out due to patient leaving prior to being seen by health care provider (principal)